=== PATIENT | male | born 1975 | race Two or more races ===

== ENCOUNTER 2024-06-04 14:37 | Inpatient (IN) | payer MEDICAID, SELFPAY ==
[2024-06-04] VITALS (14 sets, daily range): BP systolic 83–112; BP diastolic 53–75; PULSE 101–127; RESP 15–96; TEMP 36.4–37.3; O2SAT 87–99; BMI 25.1; BMI 24.7
--- NOTE | 2024-06-04 15:32 | XR_ITS ---
Examination: PA lateral chest 2 views Technique: Upright PA lateral chest 2 views Exam date and time: June 04, 2024 at 1606 hrs. Indications: Coughing one week. Findings: Normal heart size No lobar pneumonia No pulmonary edema. The osseous structures are intact Impression: No lobar pneumonia
--- NOTE | 2024-06-04 15:33 | PD.EDRME ---
Rapid Medical Screening Exam RME Arrival date/time: 06/04/24 14:37 This is a 49-year-old male that comes in with complaints of bodyaches, cough, back pain and abdominal pain that is been going on for almost a week. Patient reports a history of diabetes and states he does not take care of his diabetes. I have greeted and performed a focused initial assessment of this patient. Initial appropriate labs ordered at this time. A comprehensive ED assessment and evaluation of the patient and analysis of all test and completion of medical decision making process will be conducted by additional ED provider. Chief Complaint: Flu Like Symptoms Time Seen by Provider: 06/04/24 14:54 Vital signs: Vital Signs Temperature 97.6 F 06/04/24 14:48 Pulse Rate 127 H 06/04/24 14:48 Respiratory Rate 18 06/04/24 14:48 Blood Pressure 106/72 06/04/24 14:48 Pulse Oximetry (%) 97 06/04/24 14:48 Oxygen Delivery Method Room Air 06/04/24 14:48
[2024-06-04 15:57] LABS: Basophils # (Auto) 0.1 Thou/mm3 (0.0-0.2); Basophils % (Auto) 0 % (0-2.5); Eosinophils % (Auto) 0 % (0-10); Hematocrit 38.5 % (41.0-53.0); Hemoglobin 13.7 g/dL (13.5-16.0); Immature Granulocytes % (Auto) 9 % (0-0); Immature Granulocytes Auto 2.92 Thou/mm3 (0.00-0.00); Lymphocytes # (Auto) 0.7 Thou/mm3 (1.0-4.8); Lymphocytes % (Auto) 2 % (10-50); Mean Corpuscular HGB Conc 35.6 g/dl (31.0-37.0); Mean Corpuscular Hemoglobin 29.3 pg (25.0-35.0); Mean Corpuscular Volume 82 fL (80-100); Monocytes # (Auto) 1.2 Thou/mm3 (0.0-0.8); Monocytes % (Auto) 3 % (0-12); Neutrophils # (Auto) 29.4 Thou/mm3 (1.8-7.7); Neutrophils % (Auto) 86 % (37-80); Nucleated Red Blood Cell % 0 /100 WBC (0); Platelet Count 388 Thou/mm3 (140-440); Red Blood Count 4.67 Miln/mm3 (4.50-5.90); White Blood Count 34.3 Thou/mm3 (3.8-10.6)
[2024-06-04 16:14] LABS: Alanine Aminotransferase 86 U/L (10-49); Albumin, Serum 4.5 gm/dL (3.5-5.0); Albumin/Globulin Ratio 1.3 (1.2-2.2); Alkaline Phosphatase 421 U/L (46-116); Anion Gap 10 (7-16); Aspartate Amino Transferase 33 U/L (0-34); BUN/Creatinine Ratio 19 Ratio (12-20); Blood Urea Nitrogen 19 mg/dL (9-23); Calcium 9.5 mg/dL (8.3-10.6); Calcium (Corrected) 9.5 mg/dL (8.5-10.1); Carbon Dioxide 27.7 mMol/L (20.0-31.0); Chloride 88 mMol/L (98-107); Estimated Creatinine Clearance 89.4 mL/min (>60); Globulin 3.4 gm/dL (2.3-3.5); Glucose 274 mg/dL (74-106); Lipase 31 U/L (12-53); Osmolality,Calculated 265 (275-295); Potassium 4.5 mMol/L (3.4-5.1); Sodium 126 mMol/L (136-145); Total Protein 7.9 gm/dL (5.7-8.2); eGFR > 60 See Note
[2024-06-04 16:26] LABS: Collection Type, Urine Voided
--- NOTE | 2024-06-04 16:38 | EKG_ITS ---
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
--- NOTE | 2024-06-04 16:44 | PD.EDADULT ---
ED General RME/HPI General Chief complaint: Flu Like Symptoms Stated complaint: FLU SYMPTOMS x 7 DAYS Time Seen by Provider: 06/04/24 14:54 Arrival date/time: 06/04/24 14:37 CC: Body aches back pain , left abdominal pain with intermittent nausea no vomiting, denies any fever. Patient has a diabetes seen by the clinic at [place]. Patient states other family members are ill with similar symptoms. RME / HPI RME / HPI narrative: 06/04/24 14:37 This is a 49-year-old male that comes in with complaints of bodyaches, cough, back pain and abdominal pain that is been going on for almost a week. Patient reports a history of diabetes and states he does not take care of his diabetes. I have greeted and performed a focused initial assessment of this patient. Initial appropriate labs ordered at this time. A comprehensive ED assessment and evaluation of the patient and analysis of all test and completion of medical decision making process will be conducted by additional ED provider. Related Data Previous Rx's ?Medication ?Instructions ?Recorded metformin 500 mg tablet 500 mg PO BID #30 tabs 11/09/23 blood sugar diagnostic (Accu-Chek #100 ea 11/20/23 Guide test strips) blood-glucose meter (Accu-Chek #1 ea 11/20/23 Guide Glucose Meter) insulin degludec 100 unit/mL (3 15 unit (0.15 mL) subcut QPM #15 mL 11/20/23 mL) subcutaneous pen (Tresiba FlexTouch U-100 insulin) lancets 28 gauge #100 ea 11/20/23 Allergies Allergy/AdvReac Type Severity Reaction Status Date / Time No Known Allergies Allergy Unverified 06/04/24 14:42 Review of Systems Review of Systems Narrative Review of Systems: GEN: No fever, + chills, + weight loss EYES: No discharge, no visual changes, no pain HEENT: No ear pain, no congestion, no sore throat PULM: No shortness of breath, + cough, no congestion CV: No chest pain, no dyspnea on exertion, no palpitations GI: No nausea, no vomiting, no diarrhea, no pain, no constipation : No frequency, no urgency, no dysuria MUSC/SKEL: No joint pain, no back pain SKIN: No rash PSYCH: No hallucinations, no depression HEME/LYMPH: No easy bleeding or bruising tendencies NEURO: No weakness, no headache, + body aches ED Exam Narrative Physical exam: [General: Mild discomfort with acute distress Head normocephalic HEENT: Eyes pupils are PERRLA EOMs are intact all other subsystems of HEENT are within acceptable limits Neck is supple nontender Chest equal chest rise nontender to palpation Respiratory: Clear to auscultation no wheezes crackles or rubs CV: Rate rhythm is regular, tachycardic, no murmurs rubs or clicks Abdomen is soft nontender no masses positive bowel sounds all 4 quadrants Back: No CVA tenderness no spinous process tenderness from cervical spine thoracic and lumbar spine Skin: Intact no petechiae rash induration ulceration or crepitus Extremities: Moving all extremity against resistance cap refill less than 2 seconds neurosensory intact Neuro: Awake alert oriented x3 Glascow coma 15 no focal deficits] Course Quality Measures none Orders Category Date Time Status Bedside COVID-19 Antigen Test NOW Care 06/04/24 15:32 Completed Bedside Influenza A&B Antigen Test NOW Care 06/04/24 15:33 Completed Interactive Multimedia Designer STAT Care 06/04/24 16:38 Active Continuous Pulse Oximetry STAT Care 06/04/24 16:38 Completed EKG (ED ONLY) *Do not use* NOW Care 06/04/24 16:38 Completed Insert IV NOW Care 06/04/24 16:38 Active NPO STAT Care 06/04/24 16:38 Active Saline [Insert IV] NOW Care 06/04/24 16:43 Active Strict Intake and Output Routine Care 06/04/24 16:38 Ordered Consult to Infectious Diseases Routine Cons 06/04/24 19:[address] abdomen pelvis wo con Stat Exams 06/04/24 17:24 Completed EKG (ED Only) Stat Exams 06/04/24 16:38 Draft XR chest 2V Stat Exams 06/04/24 15:32 Completed B-Type Natriuretic Peptide Stat Lab 06/04/24 16:45 Completed Beta Hydroxybutyrate Stat Lab 06/04/24 16:45 Completed Blood Culture (Lab) Stat Lab 06/04/24 16:40 Received CBC Stat Lab 06/04/24 15:49 Completed Comprehensive Metabolic Panel Stat Lab 06/04/24 15:49 Completed Drug Screen,Urine Stat Lab 06/04/24 15:45 Completed LDH (Lactate Dehydrogenase) Stat Lab 06/04/24 16:45 Completed Lactate (Lactic Acid) Stat Lab 06/04/24 16:45 Completed Lipase Stat Lab 06/04/24 15:49 Completed Magnesium Stat Lab 06/04/24 16:45 Completed Partial Thromboplastin Time Stat Lab 06/04/24 16:45 Completed Phosphorous Stat Lab 06/04/24 16:45 Completed Procalcitonin Stat Lab 06/04/24 16:45 Completed Prothrombin Time with INR Stat Lab 06/04/24 16:45 Completed Quantiferon-TB* Stat Lab 06/04/24 19:40 Ordered Troponin I Stat Lab 06/04/24 16:45 Completed Urinalysis Stat Lab 06/04/24 17:54 Completed Urinalysis, C/S if Indicated Stat Lab 06/04/24 15:45 Completed Urine Culture Stat Lab 06/04/24 15:45 Received Urine Culture Stat Lab 06/04/24 16:38 Received Acetaminophen Tab [Tylenol ES Tab] Med 06/04/24 16:44 Discontinued 1,000 mg PO X1 ONE Piper/Tazo Inj [Zosyn Inj] 3.375 gm Med 06/04/24 19:12 Discontinued Sodium Chloride 0.9% (P) [Ns 0.9% (P)] 50 ml IV X1 Sodium Chloride 0.9% 1000 ml [Ns] 1,000 ml Med 06/04/24 16:43 Discontinued IV 999 mls/hr Sodium Chloride 0.9% 1000 ml [Ns] 1,000 ml Med 06/04/24 16:43 Discontinued IV 999 mls/hr Sodium Chloride 0.9% 500 ml [Ns] 500 ml Med 06/04/24 17:10 Discontinued IV 999 mls/hr cefTRIAXone/D5w 1gm IV premix [Rocephin/D5w 1gm IV Med 06/04/24 17:10 Discontinued premix] 50 ml IV X1 Oxygen Delivery NOW RT 06/04/24 16:38 Active Vital Signs Vital signs: Vital Signs Temperature 97.6 F 06/04/24 14:48 Pulse Rate 127 H 06/04/24 14:48 Respiratory Rate 18 06/04/24 14:48 Blood Pressure 106/72 06/04/24 14:48 Pulse Oximetry (%) 97 06/04/24 14:48 Oxygen Delivery Method Room Air 06/04/24 14:48 [facility] Patient data External records reviewed:: [facility] previous records Clinical information provided by:: patient Social determinants that could affect healthcare access:: none Patient has the following chronic illnesses:: Diabetes hypertension How is presenting disease/condition affected by chronic disease/condition?: uneffected by Evaluation data The following diagnostics were reviewed and interpreted by me:: lab results and radiology exam(s) Lab and/or radiology exams considered but not ordered:: CBC shows a leukocytosis of 35,000 with left shift no anemia thrombocytopenia Coags within acceptable limits CMP shows sodium 126 potassium of 4.5 chloride of 88 CO2 27.7 BUN of 19 creatinine 1.0 glucose of 274 Lactic of 3.3 Pro-Ranjit greater than 8 Troponin was negative, BNP was negative Beta hydroxy at 0.6 Urine is leukocyte Estrace positive, [address] abdomen pelvis with IV contrast as interpreted by me read by radiology shows a thickening of the bladder wall consistent with cystitis, patient also had enlarged left psoas muscle with air densities. Interpretation Summary: I am suspicious of both of urinary tract infection as well as psoas infection, patient had a mild positive psoas sign upon reexamination. Given the patient's leukocytosis which I do not feel would be commensurate with a UTI that is found but would be commensurate with psoas infection as well. Pro-Ranjit is elevated. Will admit the patient for UTI and psoas infection, Dr. Guzman attending is accept the patient for admission. Medications Medications considered but not ordered:: None Medication administrations:: Medication Administration History Acetaminophen (Acetaminophen 325 Mg Tablet) 650 mg PO Q6H PRN PRN Reason: Fever >101.5 Stop: 07/04/24 19:41 Hydrocodone Bitart/Acetaminophen (Hydrocodone/Apap 5/325 Tablet) 1 tab PO Q4HR PRN PRN Reason: PAIN SCALE 4-6 (Moderate Stop: 06/09/24 19:41 Dextrose (Dextrose 50%-Water Inj 50 Ml Syringe) 25 ml IV Q15MIN PRN PRN Reason: BG 50-70 responsive npo pt Stop: 07/04/24 19:48 Dextrose (Dextrose 50%-Water Inj 50 Ml Syringe) 50 ml IV Q15MIN PRN PRN Reason: BG <50 OR BG <70 & pt unresponsive Stop: 07/04/24 19:48 Enoxaparin Sodium (Enoxaparin Sod Inj 40 Mg/0.4 Ml Syringe) 40 mg SC QDAY [facility] Stop: 06/19/24 08:59 Glucagon (Glucagon Inj 1 Mg Vial) 1 mg IM Q15MIN PRN PRN Reason: BG <70, and no IV access Guaifenesin (Guaifenesin Syrup 200 Mg/10 Ml Udc) 200 mg PO QID PRN; Protocol PRN Reason: COUGH OR CONGESTION Stop: 07/04/24 20:52 Sodium Chloride (Ns) 1,000 mls @ 125 mls/hr IV .Q8H WARD Stop: 07/04/24 19:44 Last Admin: 06/04/24 19:54 Dose: 125 mls/hr Documented By: BRAULIO Piperacillin/Tazobactam/Dextrose (Zosyn) 3.375 gm in 50 mls @ 12.5 mls/hr IV Q8HR [facility] Stop: 06/12/24 05:59 Doxycycline Hyclate 100 mg/ (Sodium Chloride) 100 mls @ 100 mls/hr IV BID WARD Stop: 06/11/24 20:59 Last Admin: 06/04/24 20:56 Dose: 100 mls/hr Documented By: EE Insulin Glargine (Insulin Glargine (Lantus) 5 Unit/0.05 Ml (Per 5 Units)) 15 unit SC QDAY [facility] Stop: 07/05/24 08:59 Insulin Human Lispro (Insulin Lispro (Admelog) 1 Unit/0.01 Ml Unit) 0 unit SC AC [facility]; Protocol Stop: 07/05/24 07:29 Nicotine (Nicotine Patch 21 Mg/24 Hr Patch.Td24) 21 mg TOP QDAY [facility] Stop: 07/05/24 08:59 Oseltamivir Phosphate (Oseltamivir 75 Mg Capsule) 75 mg PO BID WARD Stop: 06/11/24 20:59 Last Admin: 06/04/24 21:00 Dose: 75 mg Documented By: EE Discontinued Medications Acetaminophen (Acetaminophen 500 Mg Tablet) 1,000 mg PO X1 ONE Stop: 06/04/24 16:45 Last Admin: 06/04/24 17:34 Dose: 1,000 mg Documented By: VIKY Sodium Chloride (Ns) 1,000 mls @ 999 mls/hr IV .Q1H1M ONE Stop: 06/04/24 17:43 Last Infusion: 06/04/24 18:23 Dose: Infused Documented By: SL Admin: 06/04/24 17:00 Dose: 999 mls/hr Documented By: VIKY Sodium Chloride (Ns) 1,000 mls @ 999 mls/hr IV .Q1H1M ONE Stop: 06/04/24 17:43 Last Infusion: 06/04/24 18:23 Dose: Infused Documented By: Admin: 06/04/24 17:00 Dose: 999 mls/hr Documented By: VIKY Sodium Chloride (Ns) 500 mls @ 999 mls/hr IV .Q31M ONE Stop: 06/04/24 17:40 Last Infusion: 06/04/24 18:23 Dose: Infused Documented By: Admin: 06/04/24 17:34 Dose: 999 mls/hr Documented By: VIKY Ceftriaxone Sodium/Dextrose (Rocephin/D5w 1gm Iv Premix) 50 mls @ 100 mls/hr IV X1 ONE Stop: 06/04/24 17:39 Last Infusion: 06/04/24 18:23 Dose: Infused Documented By: Admin: 06/04/24 17:35 Dose: 100 mls/hr Documented By: VIKY Piperacillin Sod/Tazobactam (Sod 3.375 gm/ Sodium Chloride) 50 mls @ 100 mls/hr IV X1 ONE Stop: 06/04/24 19:41 Last Infusion: 06/04/24 20:10 Dose: Infused Documented By: Admin: 06/04/24 19:31 Dose: 100 mls/hr Documented By: TRAVIS Insulin Glargine (Insulin Glargine (Lantus) 5 Unit/0.05 Ml (Per 5 Units)) 10 unit SC QDAY [facility] Stop: 07/05/24 08:59 None Consultations Consultation(s) initiated? (list below): No Diagnosis Differential Diagnosis ED Complaint MDM: UTI pyelonephritis sepsis influenza A Most likely diagnosis given after review of the tests above:: Influenza A UTI psoas infection Admission Indicated Admission indicated?: indicated Explain why admission is indicated or not indicated:: Further medical management Admission Request Was there a request for admission?: No Disposition Plan Disposition Plan: Admit Medical Decision Making Differential Diagnosis Differential Diagnosis: UTI pyelonephritis sepsis influenza A Lab Data 06/04/24 15:49 06/04/24 15:49 Labs: Lab Results 06/04/24 06/04/24 06/04/24 Range/Units 15:45 15:49 16:45 WBC 34.3 H (3.8-10.6) Thou/mm3 RBC 4.67 (4.50-5.90) Miln/mm3 Hgb 13.7 (13.5-16.0) g/dL Hct 38.5 L (41.0-53.0) % MCV 82 (80-100) fL MCH 29.3 (25.0-35.0) pg MCHC 35.6 (31.0-37.0) g/dl RDW Std Deviation 38.0 (35.1-43.9) fL Plt Count 388 (140-440) Thou/mm3 Neut % (Auto) 86 H (37-80) % Lymph % (Auto) 2 L (10-50) % [place] % (Auto) 3 (0-12) % Eos % (Auto) 0 (0-10) % Baso % (Auto) 0 (0-2.5) % Neut # (Auto) 29.4 H (1.8-7.7) Thou/mm3 Lymph # (Auto) 0.7 L (1.0-4.8) Thou/mm3 [place] # (Auto) 1.2 H (0.0-0.8) Thou/mm3 Eos # (Auto) 0.0 (0.0-0.5) Thou/mm3 Baso # (Auto) 0.1 (0.0-0.2) Thou/mm3 Immature Gran # (Auto) 2.92 H (0.00-0.00) Thou/mm3 Absolute Nucleated RBC 0.00 (0.00-0.00) Thou/mm3 Immature Gran % 9 H (0-0) % Neutrophils % (Manual) 62 (50-70) % Monocytes % (Manual) 4 (2-9) % Metamyelocytes % 3 H (0-0) % Myelocytes % 1 H (0-0) % Nucleated RBC % 0 (0) /100 WBC Band Neutrophils 29 H (0-6) % Lymphocytes (Manual) 1 L (20-44) % PT 12.7 H (9.0-12.2) Seconds INR 1.2 (0.9-1.3) APTT 29.1 (22.0-36.0) Seconds Sodium 126 L (136-145) mMol/L Potassium 4.5 (3.4-5.1) mMol/L Chloride 88 L (98-107) mMol/L Carbon Dioxide 27.7 (20.0-31.0) mMol/L Anion Gap 10 (7-16) BUN 19 (9-23) mg/dL Creatinine 1.0 (0.6-1.3) mg/dL Estim Creat Clear Calc 89.4 (>60) mL/min eGFR > 60 (60 - ) See Note BUN/Creatinine Ratio 19 (12-20) Ratio Glucose 274 H (74-106) mg/dL Calculated Osmolality 265 L (275-295) Lactic Acid 3.3 H (0.4-2.0) mMol/L Calcium 9.5 (8.3-10.6) mg/dL Corrected Calcium 9.5 (8.5-10.1) mg/dL Phosphorus 3.2 (2.4-5.1) mg/dL Magnesium 1.9 (1.6-2.6) mg/dL Total Bilirubin 1.0 (0.3-1.2) mg/dL AST 33 (0-34) U/L ALT 86 H (10-49) U/L Alkaline Phosphatase 421 H (46-116) U/L Lactate Dehydrogenase 367 H (120-246) U/L Troponin I < 0.020 (0.0-0.045) ng/mL B-Natriuretic Peptide 78 (0-100) pg/mL Total Protein 7.9 (5.7-8.2) gm/dL Albumin 4.5 (3.5-5.0) gm/dL Globulin 3.4 (2.3-3.5) gm/dL Albumin/Globulin Ratio 1.3 (1.2-2.2) Lipase 31 (12-53) U/L Beta-Hydroxybutyrate/Acetoacetate 0.6 H (<0.6) mmol/L Procalcitonin 8.32 H (0.0-0.49) ng/ml Ur Collection Type Voided Urine Color Yellow (Lt Yel-Yel) Urine Clarity Turbid A (Clear/Hazy) Urine pH 6.0 (5.0-7.0) Ur Specific [place] 1.030 (1.001-1.035) Urine Protein 2+ A (Neg - Trace) Urine Glucose (UA) 4+ A (Negative) Urine Ketones 2+ A (Negative) Urine Blood 1+ A (Negative) Urine Nitrite Negative (Negative) Urine Bilirubin Negative (Negative) Urine Urobilinogen (Auto) Negative (0.0-1.0) mg/dL Ur Leukocyte Esterase Positive (Negative) Urine RBC 10 H (0-3) /hpf Urine WBC 45 H (0-5) /hpf Ur Squamous Epith Cells 2 (0-5) /hpf Amorphous Crystals Present A (Absent) Urine Bacteria 1+ A (None) Hyaline Casts (0-1) /hpf Urine Yeast (Budding) Present A (None) Urine Sperm Present A (None) Ur Culture Indicated? Yes Urine Opiates Screen Negative (Negative) Urine Fentanyl Screen Negative (Negative) Ur Barbiturates Screen Negative (Negative) U Amphetamin/Meth Scrn Positive A (Negative) U Benzodiazepines Scrn Negative (Negative) U Cocaine Metab Screen Negative (Negative) U Marijuana (THC) Screen Negative (Negative) 06/04/24 Range/Units 17:54 WBC (3.8-10.6) Thou/mm3 RBC (4.50-5.90) Miln/mm3 Hgb (13.5-16.0) g/dL Hct (41.0-53.0) % MCV (80-100) fL MCH (25.0-35.0) pg MCHC (31.0-37.0) g/dl RDW Std Deviation (35.1-43.9) fL Plt Count (140-440) Thou/mm3 Neut % (Auto) (37-80) % Lymph % (Auto) (10-50) % [place] % (Auto) (0-12) % Eos % (Auto) (0-10) % Baso % (Auto) (0-2.5) % Neut # (Auto) (1.8-7.7) Thou/mm3 Lymph # (Auto) (1.0-4.8) Thou/mm3 [place] # (Auto) (0.0-0.8) Thou/mm3 Eos # (Auto) (0.0-0.5) Thou/mm3 Baso # (Auto) (0.0-0.2) Thou/mm3 Immature Gran # (Auto) (0.00-0.00) Thou/mm3 Absolute Nucleated RBC (0.00-0.00) Thou/mm3 Immature Gran % (0-0) % Neutrophils % (Manual) (50-70) % Monocytes % (Manual) (2-9) % Metamyelocytes % (0-0) % Myelocytes % (0-0) % Nucleated RBC % (0) /100 WBC Band Neutrophils (0-6) % Lymphocytes (Manual) (20-44) % PT (9.0-12.2) Seconds INR (0.9-1.3) APTT (22.0-36.0) Seconds Sodium (136-145) mMol/L Potassium (3.4-5.1) mMol/L Chloride (98-107) mMol/L Carbon Dioxide (20.0-31.0) mMol/L Anion Gap (7-16) BUN (9-23) mg/dL Creatinine (0.6-1.3) mg/dL Estim Creat Clear Calc (>60) mL/min eGFR (60 - ) See Note BUN/Creatinine Ratio (12-20) Ratio Glucose (74-106) mg/dL Calculated Osmolality (275-295) Lactic Acid (0.4-2.0) mMol/L Calcium (8.3-10.6) mg/dL Corrected Calcium (8.5-10.1) mg/dL Phosphorus (2.4-5.1) mg/dL Magnesium (1.6-2.6) mg/dL Total Bilirubin (0.3-1.2) mg/dL AST (0-34) U/L ALT (10-49) U/L Alkaline Phosphatase (46-116) U/L Lactate Dehydrogenase (120-246) U/L Troponin I (0.0-0.045) ng/mL B-Natriuretic Peptide (0-100) pg/mL Total Protein (5.7-8.2) gm/dL Albumin (3.5-5.0) gm/dL Globulin (2.3-3.5) gm/dL Albumin/Globulin Ratio (1.2-2.2) Lipase (12-53) U/L Beta-Hydroxybutyrate/Acetoacetate (<0.6) mmol/L Procalcitonin (0.0-0.49) ng/ml Ur Collection Type Clean Catch Urine Color Yellow (Lt Yel-Yel) Urine Clarity Turbid A (Clear/Hazy) Urine pH 6.0 (5.0-7.0) Ur Specific [place] 1.019 (1.001-1.035) Urine Protein 1+ A (Neg - Trace) Urine Glucose (UA) 4+ A (Negative) Urine Ketones 1+ A (Negative) Urine Blood Trace (Negative) Urine Nitrite Negative (Negative) Urine Bilirubin Negative (Negative) Urine Urobilinogen (Auto) 2.0 (0.0-1.0) mg/dL Ur Leukocyte Esterase Positive (Negative) Urine RBC 7 H (0-3) /hpf Urine WBC 43 H (0-5) /hpf Ur Squamous Epith Cells 2 (0-5) /hpf Amorphous Crystals (Absent) Urine Bacteria Rare (None) Hyaline Casts < 1 (0-1) /hpf Urine Yeast (Budding) (None) Urine Sperm (None) Ur Culture Indicated? Urine Opiates Screen (Negative) Urine Fentanyl Screen (Negative) Ur Barbiturates Screen (Negative) U Amphetamin/Meth Scrn (Negative) U Benzodiazepines Scrn (Negative) U Cocaine Metab Screen (Negative) U Marijuana (THC) Screen (Negative) Discharge Plan Plan Patient Disposition: Admit Acute Care w/in Hospital Patient condition on transfer: Stable Problem List Clinical Impression: Influenza A, UTI (urinary tract infection), uncomplicated, Psoas syndrome, Hyperglycemia PA/CHANGE MANAGEMENT DIRECTOR Supervising Physician PA/CHANGE MANAGEMENT DIRECTOR Supervising Physician: Vega Joseph ENP
[2024-06-04 16:47] LABS: Amorphous Crystals,Urine Present (Absent); Bacteria,Urine 1+; Bilirubin,Urine Negative (Negative); Blood,Urine 1+ (Negative); Budding Yeast,Urine Present; Clarity,Urine Turbid (Clear/Hazy); Color,Urine Yellow (Lt Yel-Yel); Glucose, Urine 4+ (Negative); Ketones,Urine 2+ (Negative); Leukocyte Esterase,Urine Positive (Negative); Nitrite,Urine Negative (Negative); Protein,Urine 2+ (Neg - Trace); RBC,Urine 10 /hpf (0-3); Squamous Epithelial Cell,Urine 2 /hpf (0-5); Urobilinogen,Urine Negative mg/dL (0.0-1.0); WBC,Urine 45 /hpf (0-5)
[2024-06-04 16:50] LABS: Culture Indicated,Urine Yes; Sperm,Urine Present
[2024-06-04 16:51] LABS: Lactate (Lactic Acid) 3.3 mMol/L (0.4-2.0)
[2024-06-04 16:55] LABS: Amphetamine/Methamp Scrn,U Positive (Negative); Barbiturate Screen,Urine Negative (Negative); Benzodiazepines Screen,Urine Negative (Negative); Benzoylecgonine Screen, Ur Negative (Negative); Fentanyl Screen,Urine Negative (Negative); Opiate Screen,Urine Negative (Negative); THC Screen,Urine Negative (Negative)
[2024-06-04] MEDS: SODIUM CHLORIDE 0.9% 1000 ML 1,000 ML 999 ML IV ×2 (17:00)
[2024-06-04 17:09] LABS: INR 1.2 (0.9-1.3); Partial Thromboplastin Time 29.1 Seconds (22.0-36.0); Prothrombin Time 12.7 Seconds (9.0-12.2)
[2024-06-04 17:10] LABS: B-Type Natriuretic Peptide 78 pg/mL (0-100)
[2024-06-04 17:17] LABS: Band Neutrophils (Manual) 29 % (0-6); Lymphocytes (Manual) 1 % (20-44); Metamyelocytes (Manual) 3 % (0-0); Monocytes (Manual) 4 % (2-9); Myelocytes (Manual) 1 % (0-0); Neutrophils (Manual) 62 % (50-70)
[2024-06-04 17:19] LABS: LDH (Lactate Dehydrogenase) 367 U/L (120-246); Magnesium 1.9 mg/dL (1.6-2.6); Phosphorous 3.2 mg/dL (2.4-5.1); Procalcitonin 8.32 ng/ml (0.0-0.49); Troponin I < 0.020 ng/mL (0.0-0.045)
[2024-06-04 17:21] LABS: Beta Hydroxybutyrate 0.6 mmol/L (<0.6)
--- NOTE | 2024-06-04 17:24 | XR_ITS ---
Examination: CT abdomen and pelvis without contrast. Coronal 3-D reconstructions. Sagittal 2-D reconstructions. Date and time of exam:June 04, 2024 1803 hrs. Indications: Sepsis unknown origin CTDI: vol (mGy): 8.36 DLP: (mGycm): 506 Technique: Axial images of the abdomen have been obtained, 3 mm slice thickness Intravenous contrast material has not been administered. Low dose protocols were performed. One or more of the following dose reduction techniques were used; automated exposure control, adjustment of the mA and/or KV according to patient size, use of iterative reconstruction technique. Findings: Mild opacity left base, axial image 29 Trace pericardial thickening No focal liver or splenic lesion No definite gallstones Normal pancreas normal adrenal glands Minimal bilateral perinephric stranding No renal or ureteral calculi, no hydronephrosis Normal appendix Enlarged left psoas muscle, axial image 145 with air densities with inflammatory change surrounding the psoas muscle extending into the pelvis Markedly abnormal thickening of the urinary bladder up to 10 mm No significant prostatomegaly Impression: Mild pneumonia left base Diffusely abnormal left psoas muscle, enlarged, with stranding and air densities within the psoas muscle most consistent with infectious process, tuberculosis would be included in the differential, recommend MRI pelvis follow-up pre and postcontrast Significant urinary bladder wall thickening, cystitis pattern
[2024-06-04] MEDS: ACETAMINOPHEN 500 MG TABLET 1000 MG PO (17:34)
[2024-06-04] MEDS: SODIUM CHLORIDE 0.9% 500 ML 500 ML 999 ML IV (17:34)
[2024-06-04] MEDS: cefTRIAXone/D5w 1gm IV premix 50 ML IV (17:35)
[2024-06-04 18:00] LABS: Collection Type, Urine Clean Catch
[2024-06-04 18:42] LABS: Bacteria,Urine Rare; Bilirubin,Urine Negative (Negative); Blood,Urine Trace (Negative); Clarity,Urine Turbid (Clear/Hazy); Color,Urine Yellow (Lt Yel-Yel); Glucose, Urine 4+ (Negative); Hyaline Casts,Urine < 1 /hpf (0-1); Ketones,Urine 1+ (Negative); Leukocyte Esterase,Urine Positive (Negative); Nitrite,Urine Negative (Negative); Protein,Urine 1+ (Neg - Trace); RBC,Urine 7 /hpf (0-3); Specific Gravity,Urine 1.019 (1.001-1.035); Squamous Epithelial Cell,Urine 2 /hpf (0-5); WBC,Urine 43 /hpf (0-5)
--- NOTE | 2024-06-04 19:13 | PC.NURSE ---
CALL JOHN CHAUDHARI FOR UPDATE
[2024-06-04] MEDS: PIPER/TAZO INJ 3.375 GM in SODIUM CHLORIDE 0.9% (P) 50 ML IV (19:31)
--- NOTE | 2024-06-04 19:44 | EVENTNT_ITS ---
Documentation for date of: 06/04/24 Event Note Event Note: A 49-year-old male presented to the ER with the chief complaint of body aches, back pain, and left abdominal pain. The patient reports body aches, back pain localized to the middle and upper back, and left-sided abdominal pain. Symptoms began approximately one week ago and are associated with intermittent nausea but no vomiting, diarrhea, or chills. He denies difficulty breathing but mentions mild chest pain and occasional phlegm. Additional symptoms include swollen and painful knees. The patient denies recent fever but was noted to be diaphoretic during evaluation. The patient has a history of diabetes managed with 15 units of insulin daily and arthritis. His surgical history includes elbow surgery for an infection last year, with an incision and drainage (I&D) procedure performed on November 19, 2023, for right elbow bursitis. Social history is significant for methamphetamine use, smoking one pack of cigarettes every 2?3 days, and no alcohol use. 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 No known drug allergies were reported. In the Emergency Department, vital signs included temperature 97.6?F, heart rate 122 bpm, respiratory rate 18 breaths per minute, and blood pressure 106/72 mmHg. EKG showed sinus tachycardia. Laboratory findings revealed leukocytosis (WBC 34.3), hyponatremia (sodium 126), hypochloremia (chloride 88), lactic acidosis (3.3), and elevated procalcitonin (8.32). Urinalysis showed turbid urine with WBC 43 but was nitrate-negative. Utox was positive for methamphetamine. Imaging findings included mild pneumonia in the left lung base and a diffusely abnormal left psoas muscle with stranding and air densities, consistent with an infectious process, with tuberculosis included in the differential. Additionally, there was significant urinary bladder wall thickening, consistent with cystitis. An MRI pelvis with contrast was recommended for further evaluation. A sepsis alert was initiated. The patient received an IV fluid bolus and was started on ceftriaxone and then zosyn. He was admitted for further treatment and management. Impression and Plan: #Sepsis secondary to suspected left psoas abscess, cystitis, and mild pneumonia - Elevated procalcitonin (8.32). - Continue IV fluids. - Initiate broad-spectrum antibiotics: Zosyn. - Obtain MRI pelvis with contrast to further evaluate left psoas muscle findings and rule out abscess or other infectious processes. - Monitor lactic acid levels and renal function daily for improvement. - ID consult. - QuantiFERON test. 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 #Diabetes mellitus - Continue current insulin regimen (15 units daily) with adjustments as needed based on blood glucose levels during hospitalization. - Check A1C. #Chronic joint pain with knee swelling - Symptomatic relief with acetaminophen or other non-opioid analgesics as needed.
[2024-06-04 19:49] LABS: Reflex Lactate? Y
[2024-06-04] MEDS: SODIUM CHLORIDE 0.9% 1000 ML 1,000 ML 125 ML IV (19:54)
[2024-06-04 20:08] LABS: Lactic Acid, 3 HR 1.7 mMol/L (0.4-2.0)
--- NOTE | 2024-06-04 20:21 | PD.RESHP ---
Documentation for date of: 06/04/24 HPI History of Present Illness Chief complaint: Generalized Pain and Fever History of present illness: HPI: Patient is a 49-year-old male with a past medical history significant for insulin-dependent diabetes mellitus type 2 presenting today with a chief complaint of generalized body pain and fever. With regards to his generalized body pain patient states it started approximately 1 week ago. It was also associated with some subjective fevers and decreased appetite, patient did not take any medication for this. Denies any SOB, cough, weakness, vomiting, diarrhea, chest pain/pressure, palpitations. Patient states that his niece was a sick contact but denied any recent travel. Upon review patient also endorsed a bitemporal headache and dizziness upon getting up quickly. He also endorsed dysuria for the past 3 weeks. Of note patient states that he is noncompliant with his insulin and last saw his PCP at [facility] approximately 6 months ago. ED course: BP 92/62, pulse 107, RR 25, temp 99.1 F, SpO2 96% on room air. Labs significant for WBC 34.3, NA 126, CL 88, lactic acid 3.3, ALT 86, ALP 421, LDH 367, Pro-Ranjit 8.32, influenza A positive. Urinalysis significant for 1+ protein, 4+ glucose, 1+ ketone and leukocyte esterase positive. U tox positive for meth. Abdomen/pelvis CT completed on 06/04/2024 findings include: Mild opacity left lung base, trace pericardial thickening, enlarged left psoas muscle with air densities and inflammatory changes surrounding extending into the pelvis. Markedly abnormal thickening of urinary bladder. Chest x-ray negative for any signs of consolidation, pulmonary edema or pleural effusion. EKG significant for sinus tachycardia, rate 118, no acute ST changes. Patient received 2.5 L normal saline IV fluid bolus, acetaminophen 1 g p.o. x 1, ceftriaxone 1 g IV x 1 and Zosyn 3.375 g IV x 1 in the ED. Patient will be admitted for workup and management of sepsis secondary to likely left psoas abscess/cystitis/left lung pneumonia. Infectious disease, Dr Medel consulted and is closely following the case. Appreciate recommendations. Review of Systems Review of Systems Narrative Review of Systems: GENERAL: Subjective fevers over past week HEENT: Endorses bitemporal headache for past day Neuro: Denies unusual weakness or difficulty speaking. CARDIO: Denies chest pain or palpitations. PULM: Denies SOB, couging or wheezing. GI: Denies abdominal pain, N/V/C/D. Reports having BMs. URO: Endorses dysuria for past 3 weeks MSK/EXT/SKIN: Endorses lower back pain for past week PSYCH: Cooperative, pleasant mood & affect. The rest of the review of systems is otherwise negative. 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 Education Level: Graduated high school Marital Status: Single, no kids Tobacco use: Approximately 30 pack year history. Smokes 1 pack a day ETHO use: Socially Illicit drug use: Daily meth use since 1996. Patient uses a glass pipe to smoke meth. Last use 2 days ago Social History Note: Lives with his mom dad and sisters. Exam Vital Signs Temp Pulse Resp BP Pulse Ox O2 Del Method 99.1 F 107 H 25 H 92/62 96 Room Air 06/04/24 19:33 06/04/24 19:33 06/04/24 19:33 06/04/24 19:33 06/04/24 19:33 06/04/24 19:33 Narrative Exam Constitutional Alert, oriented x 3 and comfortable. Young male. HEENT Vision grossly intact. Patent nares. Trachea midline. Respiratory Chest normal on inspection and clear auscultation bilaterally. Cardiovascular S1 and S2 audible, RRR. No murmurs carotid bruit. No gross JVD. Abdominal Soft and tender to palpation and left lower quadrant upon deep palpation, psoas sign positive on both left and right. Genitourinary No bladder tenderness, no flank pain. Normal to palpation. Musculoskeletal Extremities tone within normal limits. No LE edema. Neurological CN II - XII grossly intact. Extremity motor and sensation grossly intact. Skin Warm, dry and intact. Thick, creamy discharge on the foreskin of penis. Psychiatric Patient has good affect, is cooperative. Results: Labs 06/04/24 15:49 06/04/24 15:49 Labs: Short CBC 06/04/24 Range/Units 15:49 WBC 34.3 H (3.8-10.6) Thou/mm3 Hgb 13.7 (13.5-16.0) g/dL Hct 38.5 L (41.0-53.0) % Plt Count 388 (140-440) Thou/mm3 BMP 06/04/24 15:49 Sodium 126 L Potassium 4.5 Chloride 88 L Carbon Dioxide 27.7 BUN 19 Creatinine 1.0 Glucose 274 H Calcium 9.5 Cardiac Enzymes 06/04/24 Range/Units 16:45 Troponin I < 0.020 (0.0-0.045) ng/mL Liver Function 06/04/24 Range/Units 15:49 Total Bilirubin 1.0 (0.3-1.2) mg/dL AST 33 (0-34) U/L ALT 86 H (10-49) U/L Alkaline Phosphatase 421 H (46-116) U/L Albumin 4.5 (3.5-5.0) gm/dL Urine 06/04/24 06/04/24 Range/Units 15:45 17:54 Urine Color Yellow Yellow (Lt Yel-Yel) Urine Clarity Turbid A Turbid A (Clear/Hazy) Urine pH 6.0 6.0 (5.0-7.0) Ur Specific Brave 1.030 1.019 (1.001-1.035) Urine Protein 2+ A 1+ A (Neg - Trace) Urine Glucose (UA) 4+ A 4+ A (Negative) Quality Measures Quality Measures none Medications Home Medications and Allergies Allergies Allergy/AdvReac Type Severity Reaction Status Date / Time No Known Allergies Allergy Unverified 06/04/24 14:42 Visit Medications Acetaminophen (Acetaminophen 325 Mg Tablet) 650 mg PO Q6H PRN PRN Reason: Fever >101.5 Stop: 07/04/24 19:41 Hydrocodone Bitart/Acetaminophen (Hydrocodone/Apap 5/325 Tablet) 1 tab PO Q4HR PRN PRN Reason: PAIN SCALE 4-6 (Moderate Stop: 06/09/24 19:41 Dextrose (Dextrose 50%-Water Inj 50 Ml Syringe) 25 ml IV Q15MIN PRN PRN Reason: BG 50-70 responsive npo pt Stop: 07/04/24 19:48 Dextrose (Dextrose 50%-Water Inj 50 Ml Syringe) 50 ml IV Q15MIN PRN PRN Reason: BG <50 OR BG <70 & pt unresponsive Stop: 07/04/24 19:48 Enoxaparin Sodium (Enoxaparin Sod Inj 40 Mg/0.4 Ml Syringe) 40 mg SC QDAY [facility] Stop: 06/19/24 08:59 Glucagon (Glucagon Inj 1 Mg Vial) 1 mg IM Q15MIN PRN PRN Reason: BG <70, and no IV access Sodium Chloride (Ns) 1,000 mls @ 125 mls/hr IV .Q8H [facility] Stop: 07/04/24 19:44 Last Admin: 06/04/24 19:54 Dose: 125 mls/hr Piperacillin/Tazobactam/Dextrose (Zosyn) 3.375 gm in 50 mls @ 100 mls/hr IV Q6HR [facility] Stop: 06/11/24 19:48 Piperacillin/Tazobactam/Dextrose (Zosyn) 50 mls @ 100 mls/hr IV X1 [facility] Stop: 06/05/24 14:00 Insulin Glargine (Insulin Glargine (Lantus) 5 Unit/0.05 Ml (Per 5 Units)) 15 unit SC QDAY [facility] Stop: 07/05/24 08:59 Insulin Human Lispro (Insulin Lispro (Admelog) 1 Unit/0.01 Ml Unit) 0 unit SC AC [facility]; Protocol Stop: 07/05/24 07:29 Discontinued Medications Acetaminophen (Acetaminophen 500 Mg Tablet) 1,000 mg PO X1 ONE Stop: 06/04/24 16:45 Last Admin: 06/04/24 17:34 Dose: 1,000 mg Sodium Chloride (Ns) 1,000 mls @ 999 mls/hr IV .Q1H1M ONE Stop: 06/04/24 17:43 Last Infusion: 06/04/24 18:23 Dose: Infused Sodium Chloride (Ns) 1,000 mls @ 999 mls/hr IV .Q1H1M ONE Stop: 06/04/24 17:43 Last Infusion: 06/04/24 18:23 Dose: Infused Sodium Chloride (Ns) 500 mls @ 999 mls/hr IV .Q31M ONE Stop: 06/04/24 17:40 Last Infusion: 06/04/24 18:23 Dose: Infused Ceftriaxone Sodium/Dextrose (Rocephin/D5w 1gm Iv Premix) 50 mls @ 100 mls/hr IV X1 ONE Stop: 06/04/24 17:39 Last Infusion: 06/04/24 18:23 Dose: Infused Piperacillin Sod/Tazobactam (Sod 3.375 gm/ Sodium Chloride) 50 mls @ 100 mls/hr IV X1 ONE Stop: 06/04/24 19:41 Last Admin: 06/04/24 19:31 Dose: 100 mls/hr Insulin Glargine (Insulin Glargine (Lantus) 5 Unit/0.05 Ml (Per 5 Units)) 10 unit SC QDAY [facility] Stop: 07/05/24 08:59 Assessment & Plan Plan Patient is a 49-year-old male with a past medical history significant for insulin-dependent diabetes mellitus type 2 presenting today with a chief complaint of generalized body pain and fever. Patient will be admitted for workup and management of sepsis secondary to likely left psoas abscess/cystitis/left lung pneumonia. 1. Sepsis secondary to likely left psoas abscess 2. Influenza A upper respiratory infection 3. Leukocytosis Patient presented with a 1 week history of generalized body pain and subjective fever. On exam patient has bilateral psoas sign positive and tender to palpation in the left lower quadrant. Abdomen/pelvis CT completed on 06/04/2024 findings include: Mild opacity left lung base, trace pericardial thickening, enlarged left psoas muscle with air densities and inflammatory changes surrounding extending into the pelvis. Markedly abnormal thickening of urinary bladder. Chest x-ray negative for any signs of consolidation, pulmonary edema or pleural effusion. SIRS 3/4. Heart rate 107, respiration 25, WBC 34.3, Pro-Ranjit 8.32, LA 3.3. Source of infection likely left psoas abscess, cystitis, influenza A upper respiratory infection, UTI. Patient received ceftriaxone 1 g IV x 1, Zosyn 3.375 g IV x 1 and 2.5 L normal saline IV fluid bolus in the ED. Plan: ? Low consistent carb diet ? MR pelvis without/with contrast ordered to rule out psoas abscess ? ESR, CRP ordered ? QuantiFERON TB ordered ? MRSA nasal screen ? Pending blood and urine cultures ? Started on Tamiflu 75 Mg p.o. twice daily on [06/04? ? Started on Zosyn 3.375 g IV every 6 hourly for Pseudomonas coverage on [06/04? ? Started on doxycycline 100 mg IV twice daily for MRSA coverage on [06/04? ? Possible general surgery consult pending MRI. ? Infectious disease, Dr Medel consulted and is closely following the case. Appreciate recommendations. 4. Cystitis 5. UTI Patient endorsed dysuria for the past 3 weeks. Urinalysis significant for 1+ protein, 4+ glucose, 1+ ketone and leukocyte esterase positive. Plan: ? Patient currently on Zosyn and doxycycline for sepsis secondary to likely psoas abscess. Will tailor antibiotics if necessary depending on urine and blood cultures. 6. Hyponatremia 7. Hypochloremia Most likely secondary to decreased appetite and poor fluid intake. Plan: ? Normal saline maintenance fluids at 125 cc/hour 8. Methamphetamine use 9. Tobacco dependence Patient reported daily meth use since 1996, last used 2 days ago. Patient has approximately [id number] smoking history. Currently smokes 1 pack a day. U tox positive for methamphetamine. Plan: ? Patient extensively counseled and advised to quit tobacco and methamphetamine use. Patient agrees. ? Nicotine patch 21 mg topical daily 10. Insulin dependent Diabetes mellitus type 2 No recent HbA1c on file Home medication Insulin glargine 15U SC daily Patient non compliant with insulin and has not seen his PCP in over 6 months. Plan: - HbA1c - Insulin glargine 15 U sc HS - SSI to cover for any blood glucose spikes Health maintenance: Disposition: IVF and IV antibiotics. MRI pelvis. ID consult, possible general surgery consult Diet: Low consistent carb Lines: pIVs GI Prophylaxis: None Thrombo Prophylaxis: Enoxaprin 40 mg sc daily Code status: FULL CODE Plan of care discussed with Attending Dr. Thomas Peguero MD PGY 1 Attending Provider Attestation/Addendum Pt was evaluated and plan formulated together with the housestaff team. I have reviewed the residents note above and agree with most of its content. Please refer to the residents note for additional details.
[2024-06-04] MEDS: DOXYCYCLINE INJ 100 MG in SODIUM CHLORIDE 0.9% (P) 100 ML IV (20:56)
[2024-06-04] MEDS: OSELTAMIVIR 75 MG CAPSULE PO (21:00)
[2024-06-04] MEDS: INSULIN LISPRO (AdmeLOG) 1 UNIT/0.01 ML UNIT 5 UNIT SC (23:07)
[2024-06-04] MEDS: HYDROcodone/APAP 5/325 TABLET 1 TAB PO (23:14)
[2024-06-05] VITALS (8 sets, daily range): BP systolic 93–109; BP diastolic 68–74; PULSE 82–117; RESP 15–84; TEMP 36.1–37.7; O2SAT 92–98; BMI 24.7
--- NOTE | 2024-06-05 | XR_ITS ---
Examination: MRI pelvis with intravenous contrast. MRI pelvis without intravenous contrast. Date and time of exam: June 05, 2024 1135 hours INDICATIONS: Bodyaches abdominal pain pelvic pain intermittent nausea 7 days, sepsis, CT abdomen pelvis June 04, 2024 infectious process in the left psoas muscle Technique: Multiple axial, sagittal and coronal sections of the pelvis obtained. Transverse images, TR 6020, TE 107. T1 weighted transverse images, TR 582, TE 9.5. T2-weighted sagittal images, TR 4000, TE 105. T2-weighted sagittal images, TR 4000, TE 5. Coronal images, TR 4210, TE 107. Axial and coronal images are obtained post 15 cc intravenous injection, gadolinium. Findings: Marked enlargement and diffuse increased signal in the left psoas muscle extending into the pelvis Pelvis contrast images demonstrate diffuse enhancement of the left psoas muscle Fluid-filled drainable abscess is not depicted Mild free fluid in the pelvis Mild free fluid presacral Urinary bladder intact IMPRESSION: Prominent infectious process involving the psoas muscle on the left including in the pelvis Highest on the differential list is infectious processes including tuberculosis
[2024-06-05] MEDS: SODIUM CHLORIDE 0.9% 1000 ML 1,000 ML 125 ML IV (04:39)
[2024-06-05] MEDS: PIPER/TAZO 3.375 GM 3.375 GM/50 ML BAG IV (05:41)
[2024-06-05 06:03] LABS: Quantiferon-TB* See Sep Rpt
[2024-06-05 06:09] LABS: Basophils % (Auto) 0 % (0-2.5); Eosinophils % (Auto) 0 % (0-10); Hematocrit 30.5 % (41.0-53.0); Hemoglobin 10.5 g/dL (13.5-16.0); Immature Granulocytes % (Auto) 10 % (0-0); Immature Granulocytes Auto 2.59 Thou/mm3 (0.00-0.00); Lymphocytes # (Auto) 0.9 Thou/mm3 (1.0-4.8); Lymphocytes % (Auto) 3 % (10-50); Mean Corpuscular HGB Conc 34.4 g/dl (31.0-37.0); Mean Corpuscular Hemoglobin 29.2 pg (25.0-35.0); Mean Corpuscular Volume 85 fL (80-100); Monocytes # (Auto) 1.1 Thou/mm3 (0.0-0.8); Monocytes % (Auto) 4 % (0-12); Neutrophils # (Auto) 22.5 Thou/mm3 (1.8-7.7); Neutrophils % (Auto) 83 % (37-80); Nucleated Red Blood Cell % 0 /100 WBC (0); Platelet Count 353 Thou/mm3 (140-440); RDW Standard Deviation 39.4 fL (35.1-43.9); Red Blood Count 3.59 Miln/mm3 (4.50-5.90); White Blood Count 27.3 Thou/mm3 (3.8-10.6)
[2024-06-05 06:21] LABS: Sed Rate (ESR) 79 mm/hr (0-15)
[2024-06-05] MEDS: HYDROcodone/APAP 5/325 TABLET 1 TAB PO ×3 (06:23→19:53)
[2024-06-05 06:31] LABS: Anion Gap 9 (7-16); BUN/Creatinine Ratio 18 Ratio (12-20); Blood Urea Nitrogen 14 mg/dL (9-23); C-Reactive Protein > 30.4 mg/dL (0.0-0.9); Calcium 8.4 mg/dL (8.3-10.6); Carbon Dioxide 25.9 mMol/L (20.0-31.0); Chloride 98 mMol/L (98-107); Creatinine (Component) 0.8 mg/dL (0.6-1.3); Estimated Creatinine Clearance 111.7 mL/min (>60); Glucose 241 mg/dL (74-106); Osmolality,Calculated 274 (275-295); Potassium 3.8 mMol/L (3.4-5.1); Sodium 133 mMol/L (136-145); eGFR > 60 See Note
--- NOTE | 2024-06-05 07:37 | PD.RESPRO ---
Documentation for date of: 06/05/24 Subjective Subjective Interval history: No overnight events. Complaining of mild left abdominal pain, improved since yesterday. Isolation for possible tuberculosis. Tolerating oral intake without nausea or vomiting. Denies fever, chills, headaches, chest pain, sob, cough, GI or urinary symptoms. Exam Vital Signs Temp Pulse Resp BP Pulse Ox O2 Del Method O2 Flow Rate 98.1 F 109 H 18 109/68 98 Nasal Cannula 2 06/05/24 04:00 06/05/24 04:00 06/05/24 04:00 06/05/24 04:00 06/05/24 04:00 06/05/24 04:00 06/05/24 04:00 Narrative Exam GENERAL Normal-appearing adult male, in mild distress due to pain HEENT NCAT.?TETO. Oral mucosa is moist. Patent Nares NECK Supple, nontender, no thyromegaly, no meningismus, no JVD, no step offs CHEST RRR, no m/g/r CTAB, no w/r/r. Symmetrical chest rise. No intercostal subcostal retraction Atraumatic, nontender, no crepitus, symmetrical expansion. ABDOMEN Soft, flat, nontender. No guarding/rebound tenderness/masses. Bowel sounds presents EXTREMITIES Nontender, no cyanosis, no edema No edema/cyanosis.? Positive left psoas sign. No overlying skin changes. SKIN Warm and dry, no jaundice/rashes. NEUROMUSCULAR No lumbar or midline, no CVA, no paraspinal muscle spasm or tenderness. Moves all 4 extremities well, with full ROM and good CSM. HEATH x4, CN II-XII grossly intact. No focal neurologic deficits. PSYCHIATRY Normal mood and affect, cooperative, no SI or HI or hallucinations. Objective Labs 06/06/24 04:30 06/06/24 04:30 Labs: Laboratory Results - last 24 hr 06/04/24 06/04/24 06/04/24 15:45 15:49 16:45 WBC 34.3 H RBC 4.67 Hgb 13.7 Hct 38.5 L MCV 82 MCH 29.3 MCHC 35.6 RDW Std Deviation 38.0 Plt Count 388 Neut % (Auto) 86 H Lymph % (Auto) 2 L [place] % (Auto) 3 Eos % (Auto) 0 Baso % (Auto) 0 Neut # (Auto) 29.4 H Lymph # (Auto) 0.7 L [place] # (Auto) 1.2 H Eos # (Auto) 0.0 Baso # (Auto) 0.1 Immature Gran # (Auto) 2.92 H Absolute Nucleated RBC 0.00 Immature Gran % 9 H Neutrophils % (Manual) 62 Monocytes % (Manual) 4 Metamyelocytes % 3 H Myelocytes % 1 H Nucleated RBC % 0 Band Neutrophils 29 H Lymphocytes (Manual) 1 L ESR PT 12.7 H INR 1.2 APTT 29.1 Sodium 126 L Potassium 4.5 Chloride 88 L Carbon Dioxide 27.7 Anion Gap 10 BUN 19 Creatinine 1.0 Estim Creat Clear Calc 89.4 eGFR > 60 BUN/Creatinine Ratio 19 [address]ucose [address] Glu mg/dL Hemoglobin A1c Calculated Osmolality 265 L Lactic Acid 3.3 H Calcium 9.5 Corrected Calcium 9.5 Phosphorus 3.2 Magnesium 1.9 Total Bilirubin 1.0 AST 33 ALT 86 H Alkaline Phosphatase 421 H Lactate Dehydrogenase 367 H Troponin I < 0.020 C-Reactive Prot, Quant B-Natriuretic Peptide 78 Total Protein 7.9 Albumin 4.5 Globulin 3.4 Albumin/Globulin Ratio 1.3 Lipase 31 Beta-Hydroxybutyrate/Acetoacetate 0.6 H Procalcitonin 8.32 H Ur Collection Type Voided Urine Color Yellow Urine Clarity Turbid A Urine pH 6.0 Ur Specific [place] 1.030 Urine Protein 2+ A Urine Glucose (UA) 4+ A Urine Ketones 2+ A Urine Blood 1+ A Urine Nitrite Negative Urine Bilirubin Negative Urine Urobilinogen (Auto) Negative Ur Leukocyte Esterase Positive Urine RBC 10 H Urine WBC 45 H Ur Squamous Epith Cells 2 Amorphous Crystals Present A Urine Bacteria 1+ A Hyaline Casts Urine Yeast (Budding) Present A Urine Sperm Present A Ur Culture Indicated? Yes Urine Opiates Screen Negative Urine Fentanyl Screen Negative Ur Barbiturates Screen Negative U Amphetamin/Meth Scrn Positive A U Benzodiazepines Scrn Negative U Cocaine Metab Screen Negative U Marijuana (THC) Screen Negative 06/04/24 06/04/24 06/05/24 17:54 20:00 05:08 WBC 27.3 H D RBC 3.59 L Hgb 10.5 L D Hct 30.5 L MCV 85 MCH 29.2 MCHC 34.4 RDW Std Deviation 39.4 Plt Count 353 D Neut % (Auto) 83 H Lymph % (Auto) 3 L [place] % (Auto) 4 Eos % (Auto) 0 Baso % (Auto) 0 Neut # (Auto) 22.5 H Lymph # (Auto) 0.9 L [place] # (Auto) 1.1 H Eos # (Auto) 0.0 Baso # (Auto) 0.0 Immature Gran # (Auto) 2.59 H Absolute Nucleated RBC 0.00 Immature Gran % 10 H Neutrophils % (Manual) Monocytes % (Manual) Metamyelocytes % Myelocytes % Nucleated RBC % 0 Band Neutrophils Lymphocytes (Manual) ESR 79 H PT INR APTT Sodium 133 L Potassium 3.8 D Chloride 98 Carbon Dioxide 25.9 Anion Gap 9 BUN 14 Creatinine 0.8 Estim Creat Clear Calc 111.7 eGFR > 60 BUN/Creatinine Ratio 18 [address]ucose [address] Glu mg/dL Cancelled Hemoglobin A1c Cancelled Calculated Osmolality 274 L Lactic Acid 1.7 Calcium 8.4 Corrected Calcium Phosphorus Magnesium Total Bilirubin AST ALT Alkaline Phosphatase Lactate Dehydrogenase Troponin I C-Reactive Prot, Quant > 30.4 H B-Natriuretic Peptide Total Protein Albumin Globulin Albumin/Globulin Ratio Lipase Beta-Hydroxybutyrate/Acetoacetate Procalcitonin Ur Collection Type Clean Catch Urine Color Yellow Urine Clarity Turbid A Urine pH 6.0 Ur Specific [place] 1.019 Urine Protein 1+ A Urine Glucose (UA) 4+ A Urine Ketones 1+ A Urine Blood Trace Urine Nitrite Negative Urine Bilirubin Negative Urine Urobilinogen (Auto) 2.0 Ur Leukocyte Esterase Positive Urine RBC 7 H Urine WBC 43 H Ur Squamous Epith Cells 2 Amorphous Crystals Urine Bacteria Rare Hyaline Casts < 1 Urine Yeast (Budding) Urine Sperm Ur Culture Indicated? Urine Opiates Screen Urine Fentanyl Screen Ur Barbiturates Screen U Amphetamin/Meth Scrn U Benzodiazepines Scrn U Cocaine Metab Screen U Marijuana (THC) Screen Quality Measures Quality Measures none Assessment & Plan Assessment Current Active Medications: Generic Name Dose Route Start Last Admin Trade Name Freq PRN Reason Stop Dose Admin Acetaminophen 650 mg 06/04/24 19:42 Acetaminophen 325 Mg Tablet PO 07/04/24 19:41 Q6H PRN Fever >101.5 Hydrocodone Bitart/Acetaminophen 1 tab 06/04/24 19:42 06/05/24 06:23 Hydrocodone/Apap 5/325 Tablet PO 06/09/24 19:41 1 tab Q4HR PRN Administration PAIN SCALE 4-6 (Moderate Dextrose 25 ml 01/12/25 19:49 Dextrose 50%-Water Inj 50 Ml Syringe IV 07/04/24 19:48 Q15MIN PRN BG 50-70 responsive npo pt Dextrose 50 ml 06/04/24 19:49 Dextrose 50%-Water Inj 50 Ml Syringe IV 07/04/24 19:48 Q15MIN PRN BG <50 OR BG <70 & pt unresponsive Enoxaparin Sodium 40 mg 06/05/24 09:00 Enoxaparin Sod Inj 40 Mg/0.4 Ml Syringe SC 06/19/24 08:59 QDAY [facility] Glucagon 1 mg 06/04/24 19:49 Glucagon Inj 1 Mg Vial IM Q15MIN PRN BG <70, and no IV access Guaifenesin 200 mg 06/04/24 20:53 Guaifenesin Syrup 200 Mg/10 Ml Udc PO 07/04/24 20:52 QID PRN COUGH OR CONGESTION Protocol Sodium Chloride 1,000 mls @ 125 mls/hr 06/04/24 19:45 06/05/24 04:39 Ns IV 07/04/24 19:44 125 mls/hr .Q8H [facility] Administration Cefepime HCl 2 gm/ Sodium 50 mls @ 100 mls/hr 06/05/24 14:00 Chloride IV 06/12/24 13:59 TID [facility] Metronidazole 500 mg in 100 mls @ 200 mls/hr 06/05/24 07:28 Flagyl 500 Mg Iv IV 06/12/24 07:27 Q8HR [facility] Vancomycin/Sodium Chloride 200 mls @ 120 mls/hr 06/05/24 07:45 Vancomycin/Ns 1 Gm Ivpb IV 06/12/24 07:44 Q8HR [facility] Protocol Insulin Glargine 15 unit 06/05/24 09:00 Insulin Glargine (Lantus) 5 Unit/0.05 Ml (Per 5 Units) SC 07/05/24 08:59 QDAY [facility] Insulin Human Lispro 0 unit 06/05/24 07:30 Insulin Lispro (Admelog) 1 Unit/0.01 Ml Unit SC 07/05/24 07:29 AC [facility] Protocol Nicotine 21 mg 06/05/24 09:00 Nicotine Patch 21 Mg/24 Hr Patch.Td24 TOP 07/05/24 08:59 QDAY [facility] Oseltamivir Phosphate 75 mg 06/04/24 21:00 06/04/24 21:00 Oseltamivir 75 Mg Capsule PO 06/11/24 20:59 75 mg BID WARD Administration Pharmacy Consult 1 each 06/05/24 08:00 Vancomycin Pharmacy To Dose 1 Each Each IV 07/05/24 07:59 QDAY@0800 PRN CONSULT Plan In summary: 49-year-old male IDDM, presents with generalized body pain and fever x 1 week Also endorsing bitemporal headache and dizziness upon standing, dysuria x 3 weeks. He was admitted for sepsis in settings of influenza A and GPC bacteremia. ID is following. Continued on VANCOMYCIN for GPC, TAMIFLU for influenza. Pending TB workup as patient had inflamed left psoas, suggestive of TB origin. Pending cultures, MRSA, QuantiFERON. Pending echocardiogram rule out vegetations Pending MRI left psoas. Appreciate recommendations from ID, general surgery. Sepsis settings of: Left Psoas tendonitis Influenza A GPC bacteremia 3/4 SIRS tachycardia, tachypnea and leukocytosis, with source of infection GPC bacteremia, influenza A, less likely left psoas abscess. No surgical intervention from general surgery perspective. Discussed with radiology, did not indicate presence of drainable abscess, relieved inflamed psoas muscle characteristic of tuberculosis infection. ID following, recommending VANCOMYCIN only for GPC, continue TAMIFLU. Pending QuantiFERON to rule out latent TB, possibly the cause of left psoas tendinitis. Adequately fluid resuscitated. For abscess: CEFEPIME 2 mg TID + METRONIDAZOLE 500 mg q.8h. For GPC bactermia: VANCOMYCIN For Influenza: TAMIFLU 75 mg BID + GUAIFENESIN 200 mg QID ? Continue TAMIFLU 75 mg BID (06/22 to [present]) ? Continue VANCOMYCIN pharmacy dosed (06/22 to [present]) ? Continue GUAIFENESIN 200 mg QID ? Pending MRSA, blood culture, urine culture, QuantiFERON ? Pending MRI pelvis rule out abscess ? Pending ECHO r/o vegetation Cystitis UTI Patient endorsed dysuria for the past 3 weeks. We previously started CEFEPIME, METRONIDAZOLE for suspected psoas abscess which would also cover UTI. Currently on VANCOMYCIN only. Infectious disease following. Pending urine culture. Currently asymptomatic. Will restart ANTIBIOTICS as needed. ? Pending urine culture Hyponatremia (improving) Hypochloremia Likely dehydrational. Admission sodium 129, currently 133 ? Normal saline maintenance fluids at 125 cc/hour ? Daily CMP Insulin dependent Diabetes mellitus type 2 On INSULIN GLARGINE 15 units. A1C >14 this visit. GLUCOSE is 246 Home medication Insulin glargine 15U SC daily ? Continue glargine 15 units SH ? Continue LISPRO 7 units TID ? INSULIN sliding scale ? Accu-Cheks ? Diabetic education Mild transaminitis In settings of sepsis. Improving. ? Daily CMP Methamphetamine use Tobacco dependence Patient reported daily meth use since 1996, last used 2 days ago. Patient has approximately [id number] smoking history. Currently smokes 1 pack a day. U-Tox positive for METHAMPHETAMINE ? Consulted on tobacco and METH cessation ? NICOTINE patch 21 mg daily Health maintenance Diet: CHO consistent GI prophylaxis: PROTONIX DVT prophylaxis: LOVENOX Antibiotics: VANCOMYCIN, TAMIFLU CODE STATUS: Full code Disposition: Pending troponin, improvement in symptoms Patient case was discussed with attending, José Newman MD and senior residents Dr. Bauer and Dr. Howell. Linnea Swann, DO PGYI Senior Resident Attestation: The patient was interviewed and examined at the isolation units this morning. He reported mild left lower abdominal pain, that has been improving since yesterday. He denied any headache, lightheadedness, chest pain, SOB, any urinary symptoms, nausea or vomiting, fevers or chills. Physical examination was significant for positive left psoas sign. The patient was found to be having GPC bacteremia, was started on IV vancomycin, switched Zosyn to cefepime and metronidazole. Will continue with Tamiflu for influenza pneumonia. The patient was started on insulin glargine 15 units daily, and insulin lispro 7 units 3 times daily with sliding scale insulin. However, ID Dr Medel narrowed all antibiotics to IV vancomycin only. He was counseled regarding stopping the use of nonprescribed drugs. I discussed with and supervised the internal medicine physician physician involved in the care of this patient. I personally saw and examined the patient and discussed the assessment and plan with the entire medicine team, including my attending. I agree with the assessment and plan as documented above. Piotr Howell MD PGY2 Internal Medicine Attending Provider Attestation/Addendum I have examined the patient, reviewed labs and imaging findings, discussed the case with the resident(s), and reviewed entered orders. I agree with the plan of care as outlined in this note, with these additional summaries/recommendations: Patient seen at bedside. Patient admitted for SIRS criteria which is multifactorial secondary to influenza A & GPC bacteremia. Urinalysis suggestive of UTI although no urinary symptoms at this time. Blood cultures currently growing GPC and urine culture plus MRSA screen pending. Infectious disease consulted and will continue IV vancomycin plus tamiflu. Echocardiogram pending. Significant leukocytosis on admission of 34.3 improved to 27.3. Patient was found to have diffusely abnormal left psoas muscle was stranding and air densities indicative of infectious process. MRI pelvis was obtained which showed prominent infectious process again involving the left psoas muscle. Medical team spoke with radiology and no drainable fluid collection at this time. Possibly represents an infectious process including tuberculosis. No evidence of pots disease at this time. Quantiferon Gold ordered and pending results. Patient has uncontrolled diabetes mellitus type 2 and currently receiving basal bolus insulin. A1c send out and likely greater than 14% based on previous readings. Patient was counseled extensively on the importance of blood sugar management and substance abuse cessation and in agreement. Repeat hematology and chemistry panel in AM. Dr. Newman
[2024-06-05] MEDS: INSULIN LISPRO (AdmeLOG) 1 UNIT/0.01 ML UNIT SC ×2 (07:39→13:01)
[2024-06-05] MEDS: metroNIDAZOLE/NS 500 MG IVPB 500 MG/100 ML BAG 200 MG IV (07:53)
--- NOTE | 2024-06-05 09:29 | PD.IDPROG ---
Subjective Subjective Interval history: on cefepime/flagyl/vanco. bc with gpc prelim. id may take another 24h. vanco ok for all gpc. He states he is here for an unspecified gi infection with no surgery planned. Exam Vital Signs Temp Pulse Resp BP Pulse Ox O2 Del Method O2 Flow Rate 97.3 F 82 16 97/68 93 L Nasal Cannula 2 06/05/24 08:00 06/05/24 08:00 06/05/24 08:00 06/05/24 08:00 06/05/24 08:00 06/05/24 08:00 06/05/24 08:00 Narrative Exam on O2. able to offer hx. Objective - Internal Medicine Labs 06/05/24 05:08 06/05/24 05:08 Labs: Laboratory Results - last 24 hr 06/04/24 06/04/24 06/04/24 15:45 15:49 16:45 WBC 34.3 H RBC 4.67 Hgb 13.7 Hct 38.5 L MCV 82 MCH 29.3 MCHC 35.6 RDW Std Deviation 38.0 Plt Count 388 Neut % (Auto) 86 H Lymph % (Auto) 2 L [place] % (Auto) 3 Eos % (Auto) 0 Baso % (Auto) 0 Neut # (Auto) 29.4 H Lymph # (Auto) 0.7 L [place] # (Auto) 1.2 H Eos # (Auto) 0.0 Baso # (Auto) 0.1 Immature Gran # (Auto) 2.92 H Absolute Nucleated RBC 0.00 Immature Gran % 9 H Neutrophils % (Manual) 62 Monocytes % (Manual) 4 Metamyelocytes % 3 H Myelocytes % 1 H Nucleated RBC % 0 Band Neutrophils 29 H Lymphocytes (Manual) 1 L ESR PT 12.7 H INR 1.2 APTT 29.1 Sodium 126 L Potassium 4.5 Chloride 88 L Carbon Dioxide 27.7 Anion Gap 10 BUN 19 Creatinine 1.0 Estim Creat Clear Calc 89.4 eGFR > 60 BUN/Creatinine Ratio 19 Glucose [address] Glu mg/dL Hemoglobin A1c Calculated Osmolality 265 L Lactic Acid 3.3 H Calcium 9.5 Corrected Calcium 9.5 Phosphorus 3.2 Magnesium 1.9 Total Bilirubin 1.0 AST 33 ALT 86 H Alkaline Phosphatase 421 H Lactate Dehydrogenase 367 H Troponin I < 0.020 C-Reactive Prot, Quant B-Natriuretic Peptide 78 Total Protein 7.9 Albumin 4.5 Globulin 3.4 Albumin/Globulin Ratio 1.3 Lipase 31 Beta-Hydroxybutyrate/Acetoacetate 0.6 H Procalcitonin 8.32 H Ur Collection Type Voided Urine Color Yellow Urine Clarity Turbid A Urine pH 6.0 Ur Specific [place] 1.030 Urine Protein 2+ A Urine Glucose (UA) 4+ A Urine Ketones 2+ A Urine Blood 1+ A Urine Nitrite Negative Urine Bilirubin Negative Urine Urobilinogen (Auto) Negative Ur Leukocyte Esterase Positive Urine RBC 10 H Urine WBC 45 H Ur Squamous Epith Cells 2 Amorphous Crystals Present A Urine Bacteria 1+ A Hyaline Casts Urine Yeast (Budding) Present A Urine Sperm Present A Ur Culture Indicated? Yes Urine Opiates Screen Negative Urine Fentanyl Screen Negative Ur Barbiturates Screen Negative U Amphetamin/Meth Scrn Positive A U Benzodiazepines Scrn Negative U Cocaine Metab Screen Negative U Marijuana (THC) Screen Negative 06/04/24 06/04/24 06/05/24 17:54 20:00 05:08 WBC 27.3 H D RBC 3.59 L Hgb 10.5 L D Hct 30.5 L MCV 85 MCH 29.2 MCHC 34.4 RDW Std Deviation 39.4 Plt Count 353 D Neut % (Auto) 83 H Lymph % (Auto) 3 L [place] % (Auto) 4 Eos % (Auto) 0 Baso % (Auto) 0 Neut # (Auto) 22.5 H Lymph # (Auto) 0.9 L [place] # (Auto) 1.1 H Eos # (Auto) 0.0 Baso # (Auto) 0.0 Immature Gran # (Auto) 2.59 H Absolute Nucleated RBC 0.00 Immature Gran % 10 H Neutrophils % (Manual) Monocytes % (Manual) Metamyelocytes % Myelocytes % Nucleated RBC % 0 Band Neutrophils Lymphocytes (Manual) ESR 79 H PT INR APTT Sodium 133 L Potassium 3.8 D Chloride 98 Carbon Dioxide 25.9 Anion Gap 9 BUN 14 Creatinine 0.8 Estim Creat Clear Calc 111.7 eGFR > 60 BUN/Creatinine Ratio 18 Glucose [address] Glu mg/dL Cancelled Hemoglobin A1c Cancelled Calculated Osmolality 274 L Lactic Acid 1.7 Calcium 8.4 Corrected Calcium Phosphorus Magnesium Total Bilirubin AST ALT Alkaline Phosphatase Lactate Dehydrogenase Troponin I C-Reactive Prot, Quant > 30.4 H B-Natriuretic Peptide Total Protein Albumin Globulin Albumin/Globulin Ratio Lipase Beta-Hydroxybutyrate/Acetoacetate Procalcitonin Ur Collection Type Clean Catch Urine Color Yellow Urine Clarity Turbid A Urine pH 6.0 Ur Specific [place] 1.019 Urine Protein 1+ A Urine Glucose (UA) 4+ A Urine Ketones 1+ A Urine Blood Trace Urine Nitrite Negative Urine Bilirubin Negative Urine Urobilinogen (Auto) 2.0 Ur Leukocyte Esterase Positive Urine RBC 7 H Urine WBC 43 H Ur Squamous Epith Cells 2 Amorphous Crystals Urine Bacteria Rare Hyaline Casts < 1 Urine Yeast (Budding) Urine Sperm Ur Culture Indicated? Urine Opiates Screen Urine Fentanyl Screen Ur Barbiturates Screen U Amphetamin/Meth Scrn U Benzodiazepines Scrn U Cocaine Metab Screen U Marijuana (THC) Screen Assessment & Plan A&P Narrative bacteremia hx of pos flu but do not see pos test in labs. dm II, a1c pending. hx of dm noted. hx of psoas syndrome and L testicular orchitis with varicocele prior hiv and hep c neg in october 2023 narrowed to vanco alone. ordered repeat bc, a1c and echo and will f/u on wed abd notably benign. so process may be primarily resp and not abdominal. would not be surprised if bc with pneumococcus. if enterococcus, then abd may be implicated. Time Spent With Patient Time: Total time spent is greater than 50% in coordination of care (as documented) at patient's floor/unit and/or counseling patient:
--- NOTE | 2024-06-05 09:33 | ECHO_ITS ---
Transthoracic Echo Report Ht (in): 69 Wt (lb): 167 Exam Location: [facility]able Status: Inpatient Oncology Admin: Virginia Olivarez Indications: Procedure Performed: BP: 97 / 68 HR: 82 Rhythm: Tachycardia Technical Quality: Fair MEASUREMENTS (Male / Female) Normal Values 2D ECHO LV Diastolic Diameter PLAX 4.8 cm 4.2 - 5.9 / 3.9 - 5.3 cm LV Systolic Diameter PLAX 3.7 cm IVS Diastolic Thickness 1.1 cm 0.6 - 1.0 / 0.6 - 0.9 cm LVPW Diastolic Thickness 1.0 cm 0.6 - 1.0 / 0.6 - 0.9 cm LV Relative Wall Thickness 0.4 LVOT Diameter 1.9 cm LA Volume Index 19.6 cm?/m? 16 - 28 cm?/m? Ascending Aorta Diameter 2.5 cm M-MODE Aortic Root Diameter MM 2.4 cm LA Systolic Diameter MM 3.2 cm LA Ao Ratio MM 1.3 AV Cusp Separation MM 1.6 cm DOPPLER AV Peak Velocity 149.0 cm/s AV Peak Gradient 8.9 mmHg AV Mean Gradient 5.0 mmHg AV Velocity Time Integral 22.2 cm LVOT Peak Velocity 117.0 cm/s LVOT Peak Gradient 5.5 mmHg LVOT Velocity Time Integral 18.0 cm LVOT Cardiac Index 2170.6 cm?/min?m? AV Area Cont Eq vti 2.3 cm? AV Area Cont Eq pk 2.2 cm? MV Peak Velocity 99.0 cm/s MV Peak Gradient 3.9 mmHg MV Mean Velocity 76.0 cm/s MV Mean Gradient 3.0 mmHg MV Area PHT 6.3 cm? Mitral E Point Velocity 95.1 cm/s Mitral A Point Velocity 82.0 cm/s Mitral E to A Ratio 1.2 LV E' Lateral Velocity 8.2 cm/s Mitral E to LV E' Lateral Ratio 11.7 LV E' Septal Velocity 9.9 cm/s Mitral E to LV E' Septal Ratio 9.6 TR Peak Velocity 224.0 cm/s TR Peak Gradient 20.1 mmHg FINDINGS Left Ventricle Normal left ventricular size, wall thickness, systolic function with no obvious regional wall motion abnormalities. The ejection fraction is visually estimated at 50-55%. Right Ventricle The right ventricle is normal in size and systolic function. Left Atrium The left atrium is normal by two-dimensional, color flow and Doppler imaging with no structural abnormalities, no thrombus formation present. Right Atrium The right atrium is normal by two-dimensional imaging, color flow and Doppler imaging with no struct ural abnormalities, no thrombus formation present. Atrial Septum The interatrial septum appears normal with no evidence of a shunt. Aorta The aorta is normal by two-dimensional, color flow and Doppler interrogation. Mitral Valve The mitral valve is normal by two-dimensional, color flow and Doppler interrogation. There is no sig nificant mitral valve regurgitation. Aortic Valve The aortic valve is trileaflet and normal by two-dimensional, color flow and Doppler interrogation. There is trace aortic valve regurgitation. Tricuspid Valve The tricuspid valve is normal by two-dimensional, color flow and Doppler interrogation. There is tra ce tricuspid valve regurgitation. Pulmonic Valve There is no significant pulmonic valve regurgitation. Vessels The pulmonary artery appears normal. The inferior vena cava pulmonary and hepatic veins appear emperatriz l. Pericardium The pericardium is normal by two-dimensional imaging. There is no significant pericardial effusion. CONCLUSIONS Indication: GPC, bacteremia No clear vegeatations noted. TTE suboptimal and consider MARK if high clinical suspicion. Normal LV size and function. Estimated EF 55-60% Normal RV size and function. Trace AI, TR. Grady Ahmadi (Electronically Signed) Final Date: 05 June 2024 18:26
[2024-06-05] MEDS: NICOTINE PATCH 21 MG/24 HR PATCH.TD24 TOP (09:52)
[2024-06-05] MEDS: ENOXAPARIN SOD INJ 40 MG/0.4 ML SYRINGE SC (09:52)
[2024-06-05] MEDS: VANCOMYCIN/NS 1 GM IVPB 200 ML IV ×2 (09:52→13:09)
[2024-06-05] MEDS: OSELTAMIVIR 75 MG CAPSULE PO ×2 (09:52→20:14)
[2024-06-05] MEDS: INSULIN GLARGINE (Lantus) 5 UNIT/0.05 ML (PER 5 UNITS) 15 UNIT SC (09:53)
[2024-06-05] MEDS: INSULIN LISPRO (AdmeLOG) 1 UNIT/0.01 ML UNIT 5 UNIT SC (09:53)
[2024-06-05 09:59] LABS: Misc Send Out* See Sep Rpt
--- NOTE | 2024-06-05 11:55 | ESCONSULT_ITS ---
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 Guzman. REASON FOR CONSULTATION: Respiratory infection. HISTORY OF PRESENT ILLNESS: The patient reportedly has a flu and has pneumonia as well. He is on oxygen. He is a diabetic and states it is not controlled. He is on no medications. He has no other health problems. Surgeries include only right elbow surgery about 6 months ago here at the hospital. ALLERGIES: NONE KNOWN. IMMUNIZATIONS: Last tetanus is unknown. Last flu shot was two years at least. He has not had a COVID vaccine or pneumococcal vaccine. FAMILY HISTORY: Positive for diabetes. 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 He does smoke half a pack a day and uses methamphetamines. Denies alcohol use. PLAN: His urine drug screen is positive for methamphetamine. I do not see a positive flu test, but I assume that was true because he is on Tamiflu twice a day. Five days of Tamiflu is reasonable. I am not sure why he offered 7, but it is somewhat traditional to give 7 days of antibiotics for many things, but for influenza, I think 5 days of Tamiflu is probably fine. I am going to go ahead and shorten it myself to 5 days. His antibiotics are somewhat empiric. Vancomycin is probably fine for GPCs, so we will leave that on for now. Stop his other antibiotics and check on him again on Wednesday. DT: 09:53:48 TT: 10:43:00 Ref: [id number] - TID: [id number] MTDD
--- NOTE | 2024-06-05 12:36 | PC.SS ---
Patient is r/o TB and influenza A positive and meth positive. Admitted for sepsis. SS will follow up with patient on initial assessment. Patient currently getting MRI.
[2024-06-05] MEDS: INSULIN LISPRO (AdmeLOG) 1 UNIT/0.01 ML UNIT 7 UNIT SC (13:02)
--- NOTE | 2024-06-05 16:31 | PD.SURCONS ---
HPI Consult details History of present illness: 49M with DMII, history of septic bursitis of R elbow who was admitted 06/04 with generalized malaise and fever. Pt reports he has been feeling unwell for the past week including subjective fever and decreased appetite; he denies any recent travel but was in contact with a niece who was ill. During this time he also noted left lower back pain. Workup on admission showed WBC in 30s, influenza A+, and CT showed left lung opacity, left psoas muscle with air densities and inflammatory changes as well as cystitis. Pt has been managed with vancomycin, WBC is gradually downtrending although he reports still feeling unwell Review of Systems Review of Systems ROS Unobtainable: All systems reviewed & no additional complaints except as documented Meds Home Medications and Allergies Allergies Allergy/AdvReac Type Severity Reaction Status Date / Time No Known Allergies Allergy Unverified 06/04/24 14:42 Exam Vital Signs Temp Pulse Resp BP Pulse Ox O2 Del Method O2 Flow Rate 97.3 F 112 H 16 97/68 93 L Nasal Cannula 2 06/05/24 08:00 06/05/24 15:05 06/05/24 08:00 06/05/24 08:00 06/05/24 08:00 06/05/24 08:00 06/05/24 08:00 Constitutional Constitutional: mild distress Routine Respiratory Exam Respiratory: Present no resp distress Routine Abdominal Exam Abdominal: Present soft; Absent tenderness or distended Routine Back/Spine/Pelvis Exam Comments: mild induration at the left paraspinal region, no erythema or fluctuance Results Results: Laboratory Laboratory results: results reviewed Results: Imaging CT scan - abdomen: report reviewed and image reviewed Assessment & Plan Plan 49M with DMII admitted with malaise and findings of left sided PNA, cystitis and left psoas infection. CT and MRI are negative for any drainable collection, so there is no intervention that can be done for now Continue abx, trend WBC Glucose control Will follow up
[2024-06-05] MEDS: SODIUM CHLORIDE 0.9% 1000 ML 1,000 ML 75 ML IV (18:28)
--- NOTE | 2024-06-05 20:21 | PC.NURSE ---
86% O2 sat on room air- Applied O2 inh on at 2L/min/nc.
[2024-06-06] VITALS (13 sets, daily range): BP systolic 96–131; BP diastolic 56–80; PULSE 93–129; RESP 18–93; TEMP 36.4–38.3; O2SAT 90–96
[2024-06-06] MEDS: VANCOMYCIN/NS 1 GM IVPB 200 ML IV ×2 (00:03→07:22)
[2024-06-06] MEDS: HYDROcodone/APAP 5/325 TABLET 1 TAB PO ×3 (01:09→17:45)
[2024-06-06 06:02] LABS: Basophils # (Auto) 0.2 Thou/mm3 (0.0-0.2); Basophils % (Auto) 1 % (0-2.5); Eosinophils % (Auto) 0 % (0-10); Hemoglobin 10.3 g/dL (13.5-16.0); Immature Granulocytes % (Auto) 5 % (0-0); Immature Granulocytes Auto 0.92 Thou/mm3 (0.00-0.00); Lymphocytes % (Auto) 5 % (10-50); Mean Corpuscular HGB Conc 35.5 g/dl (31.0-37.0); Mean Corpuscular Hemoglobin 29.3 pg (25.0-35.0); Mean Corpuscular Volume 82 fL (80-100); Monocytes # (Auto) 1.2 Thou/mm3 (0.0-0.8); Monocytes % (Auto) 6 % (0-12); Neutrophils # (Auto) 16.1 Thou/mm3 (1.8-7.7); Neutrophils % (Auto) 83 % (37-80); Nucleated Red Blood Cell % 0 /100 WBC (0); Platelet Count 311 Thou/mm3 (140-440); RDW Standard Deviation 39.6 fL (35.1-43.9); Red Blood Count 3.52 Miln/mm3 (4.50-5.90); White Blood Count 19.3 Thou/mm3 (3.8-10.6)
--- NOTE | 2024-06-06 06:11 | PC.NURSE ---
vanco trough result pending.
[2024-06-06 06:17] LABS: Alanine Aminotransferase 79 U/L (10-49); Albumin, Serum 3.1 gm/dL (3.5-5.0); Albumin/Globulin Ratio 1.2 (1.2-2.2); Alkaline Phosphatase 456 U/L (46-116); Anion Gap 8 (7-16); Aspartate Amino Transferase 64 U/L (0-34); BUN/Creatinine Ratio 18 Ratio (12-20); Bilirubin,Total 0.9 mg/dL (0.3-1.2); Blood Urea Nitrogen 11 mg/dL (9-23); Calcium 8.3 mg/dL (8.3-10.6); Carbon Dioxide 24.7 mMol/L (20.0-31.0); Chloride 100 mMol/L (98-107); Creatinine (Component) 0.6 mg/dL (0.6-1.3); Estimated Creatinine Clearance 144.1 mL/min (>60); Globulin 2.5 gm/dL (2.3-3.5); Glucose 154 mg/dL (74-106); Magnesium 2.1 mg/dL (1.6-2.6); Osmolality,Calculated 268 (275-295); Phosphorous 2.4 mg/dL (2.4-5.1); Potassium 3.5 mMol/L (3.4-5.1); Sodium 133 mMol/L (136-145); Total Protein 5.6 gm/dL (5.7-8.2); eGFR > 60 See Note
[2024-06-06] MEDS: INSULIN LISPRO (AdmeLOG) 1 UNIT/0.01 ML UNIT SC ×3 (07:29→17:33)
[2024-06-06] MEDS: INSULIN LISPRO (AdmeLOG) 1 UNIT/0.01 ML UNIT 7 UNIT SC ×3 (07:29→17:34)
--- NOTE | 2024-06-06 07:51 | ESPR_ITS ---
Documentation for date of: 06/06/24 Subjective Subjective Interval history: No acute overnight events. Complains of chronic back pain, left hip pain improved with current reg. Has SOB, desatting low 90s on room air, on intermittent 2L NC. Has constipation but tolerating oral intake otherwise. Denies fever, chills, headaches, chest pain, sob, cough, GI or urinary symptoms. Exam Vital Signs Temp Pulse Resp BP Pulse Ox O2 Del Method O2 Flow Rate 97.9 F 93 19 96/56 L 96 Nasal Cannula 2 06/06/24 04:00 06/06/24 04:00 06/06/24 04:00 06/06/24 04:00 06/06/24 04:00 06/06/24 04:00 06/06/24 04:00 Narrative Exam GENERAL * Normal-appearing adult male, in mild distress due to pain HEENT * NCAT.?TETO. Oral mucosa is moist. Patent Nares NECK * Supple, nontender, no thyromegaly, no meningismus, no JVD, no step offs CHEST * RRR, no m/g/r * CTAB, no w/r/r. Symmetrical chest rise. No intercostal subcostal retraction * Atraumatic, nontender, no crepitus, symmetrical expansion. ABDOMEN * Soft, flat, nontender. No guarding/rebound tenderness/masses. * Bowel sounds presents EXTREMITIES * Nontender, no cyanosis, no edema * No edema/cyanosis.? * Positive left psoas sign. No overlying skin changes. SKIN * Warm and dry, no jaundice/rashes. NEUROMUSCULAR * No lumbar or midline, no CVA, no paraspinal muscle spasm or tenderness. * Moves all 4 extremities well, with full ROM and good CSM. * HEATH x4, CN II-XII grossly intact. * No focal neurologic deficits. PSYCHIATRY * Normal mood and affect, cooperative, no SI or HI or hallucinations. Objective Labs 06/10/24 05:40 06/10/24 05:40 Labs: Laboratory Results - last 24 hr 06/06/24 04:30 WBC 19.3 H D RBC 3.52 L Hgb 10.3 L Hct 29.0 L MCV 82 MCH 29.3 MCHC 35.5 RDW Std Deviation 39.6 Plt Count 311 D Neut % (Auto) 83 H Lymph % (Auto) 5 L Cache % (Auto) 6 Eos % (Auto) 0 Baso % (Auto) 1 Neut # (Auto) 16.1 H Lymph # (Auto) 1.0 Cache # (Auto) 1.2 H Eos # (Auto) 0.0 Baso # (Auto) 0.2 Immature Gran # (Auto) 0.92 H Absolute Nucleated RBC 0.00 Immature Gran % 5 H Nucleated RBC % 0 Sodium 133 L Potassium 3.5 Chloride 100 Carbon Dioxide 24.7 Anion Gap 8 BUN 11 Creatinine 0.6 Estim Creat Clear Calc 144.1 eGFR > 60 BUN/Creatinine Ratio 18 Glucose 154 H D Calculated Osmolality 268 L Calcium 8.3 Corrected Calcium 9.0 Phosphorus 2.4 Magnesium 2.1 Total Bilirubin 0.9 AST 64 H ALT 79 H Alkaline Phosphatase 456 H D Total Protein 5.6 L Albumin 3.1 L D Globulin 2.5 Albumin/Globulin Ratio 1.2 Vancomycin Trough 13.0 H Quality Measures Quality Measures none Assessment & Plan Assessment Current Active Medications: Generic Name Dose Route Start Last Admin Trade Name Freq PRN Reason Stop Dose Admin Acetaminophen 650 mg 06/04/24 19:42 Acetaminophen 325 Mg Tablet PO 07/04/24 19:41 Q6H PRN Fever >101.5 Hydrocodone Bitart/Acetaminophen 1 tab 06/04/24 19:42 06/06/24 07:41 Hydrocodone/Apap 5/325 Tablet PO 06/09/24 19:41 1 tab Q4HR PRN Administration PAIN SCALE 4-6 (Moderate Dextrose 25 ml 06/04/24 19:49 Dextrose 50%-Water Inj 50 Ml Syringe IV 07/04/24 19:48 Q15MIN PRN BG 50-70 responsive npo pt Dextrose 50 ml 06/04/24 19:49 Dextrose 50%-Water Inj 50 Ml Syringe IV 07/04/24 19:48 Q15MIN PRN BG <50 OR BG <70 & pt unresponsive Enoxaparin Sodium 40 mg 06/05/24 09:00 06/05/24 09:52 Enoxaparin Sod Inj 40 Mg/0.4 Ml Syringe SC 06/19/24 08:59 40 mg QDAY WARD Administration Glucagon 1 mg 06/04/24 19:49 Glucagon Inj 1 Mg Vial IM Q15MIN PRN BG <70, and no IV access Guaifenesin 200 mg 06/04/24 20:53 Guaifenesin Syrup 200 Mg/10 Ml Udc PO 07/04/24 20:52 QID PRN COUGH OR CONGESTION Protocol Vancomycin/Sodium Chloride 200 mls @ 120 mls/hr 06/05/24 07:45 06/06/24 07:22 Vancomycin/Ns 1 Gm Ivpb IV 06/12/24 07:44 120 mls/hr Q8HR WARD Administration Protocol Sodium Chloride 1,000 mls @ 75 mls/hr 06/05/24 10:40 06/05/24 18:28 Ns IV 07/05/24 10:39 75 mls/hr .[id number] WARD Administration Insulin Glargine 15 unit 06/06/24 21:00 Insulin Glargine (Lantus) 5 Unit/0.05 Ml (Per 5 Units) SC 07/06/24 20:59 HS WARD Insulin Human Lispro 0 unit 06/05/24 07:30 06/06/24 07:29 Insulin Lispro (Admelog) 1 Unit/0.01 Ml Unit SC 07/05/24 07:29 2 unit AC WARD Administration Protocol Insulin Human Lispro 7 unit 06/05/24 12:00 06/06/24 07:29 Insulin Lispro (Admelog) 1 Unit/0.01 Ml Unit SC 07/05/24 11:59 7 unit TIDWM WARD Administration Nicotine 21 mg 06/05/24 09:00 06/05/24 09:52 Nicotine Patch 21 Mg/24 Hr Patch.Td24 TOP 07/05/24 08:59 21 mg QDAY WARD Administration Oseltamivir Phosphate 75 mg 06/05/24 21:00 06/05/24 20:14 Oseltamivir 75 Mg Capsule PO 06/09/24 22:00 75 mg BID WARD Administration Pharmacy Consult 1 each 06/05/24 08:00 Vancomycin Pharmacy To Dose 1 Each Each IV 07/05/24 07:59 QDAY@0800 PRN CONSULT Plan In summary: 49-year-old male IDDM, presents with generalized body pain and fever x 1 week Also endorsing bitemporal headache and dizziness upon standing, dysuria x 3 weeks. He was admitted for sepsis in settings of influenza A and GPC bacteremia. ID is following. Continued on VANCOMYCIN for GPC, TAMIFLU for influenza. Pending TB workup as patient had inflamed left psoas, suggestive of TB origin. Pending repeat blood culture, urine culture, QuantiFERON. Appreciate recommendations from ID, general surgery. Sepsis settings of: Left Psoas infective myositis, possibly ? Latent TB Influenza A GPC bacteremia 3/4 SIRS tachycardia, tachypnea and leukocytosis, with source of infection GPC bacteremia, influenza A, less likely left psoas abscess. No surgical intervention from general surgery perspective. Discussed with radiology, did not indicate presence of drainable abscess, relieved inflamed psoas muscle characteristic of tuberculosis infection. ID following, recommending VANCOMYCIN only for GPC, continue TAMIFLU. CT and MRI indicated prominent infectious process involving the psoas muscle on the left including in the pelvis, highly susp for infectious process including TB. ECHO No clear vegeatations noted, EF 55-60%, recommended TTE if high clinical suspicion. MRSA negative. Adequately fluid resuscitated. Afebrile. No leukocytosis. ? Continue TAMIFLU 75 mg BID (06/22 to [present]) ? Continue VANCOMYCIN pharmacy dosed (06/22 to [present]) ? Continue GUAIFENESIN 200 mg QID ? Pending repeat blood culture, urine culture, QuantiFERON Cystitis UTI Patient endorsed dysuria for the past 3 weeks. We previously started CEFEPIME, METRONIDAZOLE for suspected psoas abscess which would also cover UTI. Currently on VANCOMYCIN only. Infectious disease following. Pending urine culture. Currently asymptomatic. Will restart ANTIBIOTICS as needed. ? Pending urine culture Hyponatremia (improving) Hypochloremia Likely dehydrational. Admission sodium 129, currently 133 ? Normal saline maintenance fluids at 125 cc/hour ? Daily CMP Insulin dependent Diabetes mellitus type 2 On INSULIN GLARGINE 15 units. A1C >14 this visit. GLUCOSE is WNL. Home medication Insulin glargine 15U SC daily ? Continue glargine 15 units SH ? Continue LISPRO 7 units TID ? INSULIN sliding scale ? Accu-Cheks ? Diabetic education Mild transaminitis In settings of sepsis. Improving. ? Daily CMP Methamphetamine use Tobacco dependence Patient reported daily meth use since 1996, last used 2 days ago. Patient has approximately [id number] smoking history. Currently smokes 1 pack a day. U-Tox positive for METHAMPHETAMINE ? Consulted on tobacco and METH cessation ? NICOTINE patch 21 mg daily Hx of Dorsalgia Complains of chronic low back pain. ? Continue LIDOCAINE patches daily ? Continue home GABAPENTIN 300 mg daily Health maintenance Diet: CHO consistent GI prophylaxis: PROTONIX DVT prophylaxis: LOVENOX Antibiotics: VANCOMYCIN, TAMIFLU CODE STATUS: Full code Disposition: Pending troponin, improvement in symptoms Patient case was discussed with attending, José Newman MD and senior residents Dr. Bauer and Dr. Howell. Linnea Swnan, DO PGYI Senior Resident Attestation: The patient is a 49-year-old male with significant past medical history of IDDM type II, methamphetamine abuse disorder since 1996 by using glass pipe to smoke presented with chief complaint of generalized body pain and fever for 1 week. The patient was found to have sepsis secondary to left psoas infective myositis and influenza A including GPC bacteremia with possible latent TB. CT and MRI of pelvis did not reveal any abscess, so GI surgeon Dr. Jett there would not be any surgical intervention at this point. The patient is currently on vancomycin as recommended by ID Dr Medel, and Tamiflu 75 Mg twice daily. For chronic back pain we will continue him on lidocaine patch and gabapentin 300 Mg daily. I discussed with and supervised the materials intern physician involved in the care of this patient. I personally saw and examined the patient and discussed the assessment and plan with the entire medicine team, including my attending. I agree with the assessment and plan as documented above. Piotr Howell MD PGY2 Internal Medicine Attending Provider Attestation/Addendum I have examined the patient, reviewed labs and imaging findings, discussed the case with the resident(s), and reviewed entered orders. I agree with the plan of care as outlined in this note, with these additional summaries/recommendations: Patient seen at bedside. Patient is endorsing significant back pain today and we will obtain imaging. Patient admitted for SIRS criteria which is multifactorial secondary to influenza A & GPC bacteremia. Urinalysis suggestive of UTI although no urinary symptoms at this time. Blood cultures currently growing GPC and urine culture plus MRSA screen pending. Infectious disease consulted and will continue IV vancomycin plus tamiflu. Echocardiogram showed no vegatations. Significant leukocytosis on admission of 34.3 improved to 27.3 and now 19.3. Patient was found to have diffusely abnormal left psoas muscle was stranding and air densities indicative of infectious process. MRI pelvis was obtained which showed prominent infectious process again involving the left psoas muscle. Medical team spoke with radiology and no drainable fluid collection at this time. Possibly represents an infectious process including tuberculosis of psoas muscle. No evidence of [place] disease at this time although now endorsing back pain and will obtain imaging. Quantiferon Gold ordered and pending results. Patient has uncontrolled diabetes mellitus type 2 and currently receiving basal bolus insulin. A1c send out and likely greater than 14% based on previous readings. Patient was counseled extensively on the importance of blood sugar management and substance abuse cessation and in agreement. Repeat hematology and chemistry panel in AM. Dr. Newman
[2024-06-06] MEDS: ENOXAPARIN SOD INJ 40 MG/0.4 ML SYRINGE SC (08:38)
[2024-06-06] MEDS: NICOTINE PATCH 21 MG/24 HR PATCH.TD24 TOP (08:38)
[2024-06-06] MEDS: OSELTAMIVIR 75 MG CAPSULE PO ×2 (08:38→21:01)
[2024-06-06] MEDS: SENNA/DOCUSATE SOD 1 TAB TABLET PO (09:47)
[2024-06-06] MEDS: LIDOCAINE 5% 1 PATCH TOP (09:47)
[2024-06-06] MEDS: GABAPENTIN 300 MG CAPSULE PO (11:38)
[2024-06-06] MEDS: VANCOMYCIN/WATER 1250 MG IVPB 250 ML 120 MG IV ×2 (14:46→21:01)
[2024-06-06] MEDS: SODIUM CHLORIDE 0.9% 1000 ML 1,000 ML 75 ML IV (14:47)
--- NOTE | 2024-06-06 15:52 | PC.SS ---
Patient is alert/oriented. Patient resides with his mother. Prior to hospitalization he was somewhat independent with ADL's. Patient states he was only walking short distances prior. Patient was admitted with sepsis. He's currently on r/o TB. Meth positive and influenza A and B. Patient is in an isolation room. Patient is complaining of pain. He states he's never had hx of TB. When asked about his meth tox, patient states he's been doing meth for years. Patient states he's interested in having resources. He's not sure if he will go though. Patient states he was seeing Dr. Curran @ [facility]. He does not want to return. He wants a new p.c.p. offered the [facility]. Patient is agreeable. Patient states his last appt. visit was 6 months ago. He plans on returning home with his mother. Patient states [facility]. Patient states his niece, Maritza, will be assisting him when he is discharged. Patient states he feels like he can't walk. SS explained we will see if physician can put in a PT evaluation order to determine any needs. Patient verbalized that his mother, Jennyfer, is the alt medical decision maker. Alt medical decision maker: motherJennyfer, Niece, Maritza, will assist in any d/c needs: [phone]
[2024-06-06] MEDS: KETOROLAC INJ 30 MG/ML VIAL IVP (17:08)
[2024-06-06] MEDS: INSULIN GLARGINE (Lantus) 5 UNIT/0.05 ML (PER 5 UNITS) 15 UNIT SC (21:00)
[2024-06-07] VITALS (9 sets, daily range): BP systolic 94–119; BP diastolic 66–80; PULSE 86–125; RESP 16–23; TEMP 36.2–37.8; O2SAT 90–95
--- NOTE | 2024-06-07 | XR_ITS ---
Examination: MRI thoracic spine without contrast. Date and time of exam: June 07, 2024 0746 hours INDICATIONS: Back pain body aches one week Technique: Multiple sagittal and axial images of the thoracic spine have been obtained. T1 weighted localizer, sagittal T2 weighted images, TR 30-50, TE 148, T1 weighted sagittal images, TR 650, TE 14, T2-weighted transverse images, TR 6770, TE 142 Findings: Adequate alignment thoracic vertebral bodies on the lateral view Mild depression superior endplate T12, chronic T5-T6 3 mm left paracentral disc bulge T6-T7 2 mm central lumbar disc bulge No localized enlargement thoracic cord No syrinx cavity Impression: Mild thoracic disc bulges as above No significant impingement upon the thoracic cord
[2024-06-07] MEDS: HYDROcodone/APAP 5/325 TABLET 1 TAB PO ×3 (03:47→21:03)
[2024-06-07] MEDS: guaiFENesin SYRUP 200 MG/10 ML UDC PO (04:34)
[2024-06-07] MEDS: VANCOMYCIN/WATER 1250 MG IVPB 250 ML 120 MG IV (05:55)
[2024-06-07 06:08] LABS: Basophils # (Auto) 0.1 Thou/mm3 (0.0-0.2); Basophils % (Auto) 1 % (0-2.5); Eosinophils # (Auto) 0.1 Thou/mm3 (0.0-0.5); Eosinophils % (Auto) 0 % (0-10); Hematocrit 28.9 % (41.0-53.0); Hemoglobin 10.2 g/dL (13.5-16.0); Immature Granulocytes % (Auto) 8 % (0-0); Lymphocytes # (Auto) 0.8 Thou/mm3 (1.0-4.8); Lymphocytes % (Auto) 5 % (10-50); Mean Corpuscular HGB Conc 35.3 g/dl (31.0-37.0); Mean Corpuscular Hemoglobin 28.8 pg (25.0-35.0); Mean Corpuscular Volume 82 fL (80-100); Monocytes # (Auto) 1.4 Thou/mm3 (0.0-0.8); Monocytes % (Auto) 9 % (0-12); Neutrophils # (Auto) 11.9 Thou/mm3 (1.8-7.7); Neutrophils % (Auto) 77 % (37-80); Nucleated Red Blood Cell % 0 /100 WBC (0); Platelet Count 326 Thou/mm3 (140-440); RDW Standard Deviation 40.2 fL (35.1-43.9); Red Blood Count 3.54 Miln/mm3 (4.50-5.90); White Blood Count 15.6 Thou/mm3 (3.8-10.6)
[2024-06-07 06:48] LABS: Alanine Aminotransferase 62 U/L (10-49); Albumin, Serum 2.9 gm/dL (3.5-5.0); Albumin/Globulin Ratio 1.1 (1.2-2.2); Alkaline Phosphatase 630 U/L (46-116); Anion Gap 7 (7-16); Aspartate Amino Transferase 47 U/L (0-34); BUN/Creatinine Ratio 23 Ratio (12-20); Bilirubin,Total 0.9 mg/dL (0.3-1.2); Blood Urea Nitrogen 18 mg/dL (9-23); Calcium 7.9 mg/dL (8.3-10.6); Calcium (Corrected) 8.8 mg/dL (8.5-10.1); Chloride 100 mMol/L (98-107); Creatinine (Component) 0.8 mg/dL (0.6-1.3); Estimated Creatinine Clearance 108.1 mL/min (>60); Globulin 2.6 gm/dL (2.3-3.5); Glucose 302 mg/dL (74-106); Magnesium 2.1 mg/dL (1.6-2.6); Osmolality,Calculated 275 (275-295); Phosphorous 2.3 mg/dL (2.4-5.1); Potassium 3.5 mMol/L (3.4-5.1); Sodium 131 mMol/L (136-145); Total Protein 5.5 gm/dL (5.7-8.2); eGFR > 60 See Note
[2024-06-07] MEDS: INSULIN LISPRO (AdmeLOG) 1 UNIT/0.01 ML UNIT 7 UNIT SC (07:35)
[2024-06-07] MEDS: INSULIN LISPRO (AdmeLOG) 1 UNIT/0.01 ML UNIT SC ×2 (07:35→11:46)
--- NOTE | 2024-06-07 08:17 | ESPR_ITS ---
<Statement entered by Anna Eastman MD - 06/13/24 12:09> I reviewed above note and agree with findings and plans. I have also personally examined the patient with medicine team and went over assessment and plan with medical team including paid intern and resident physician. Documentation for date of: 06/07/24 Subjective Subjective Interval history: No acute overnight events. Complaining of anxiety, agitation, generalized body ache and fever. States he feels like he is withdrawing from METHAMPHETAMINE which he uses daily. Psoas pain and back pain managed with current regimen. Also reports constipation, no BMs x 2 days. Urinating independently. Denies chills, headaches, chest pain, sob, cough, other GI or urinary symptoms. Exam Vital Signs Temp Pulse Resp BP Pulse Ox O2 Del Method O2 Flow Rate 98.0 F 94 20 94/67 91 L Nasal Cannula 2 06/07/24 07:58 06/07/24 07:58 06/07/24 07:58 06/07/24 07:58 06/07/24 07:58 06/07/24 07:58 06/07/24 07:58 Narrative Exam GENERAL * Normal-appearing adult male, in mild distress due to pain HEENT * NCAT.?TETO. Oral mucosa is moist. Patent Nares NECK * Supple, nontender, no thyromegaly, no meningismus, no JVD, no step offs CHEST * RRR, no m/g/r * CTAB, no w/r/r. Symmetrical chest rise. No intercostal subcostal retraction * Atraumatic, nontender, no crepitus, symmetrical expansion. ABDOMEN * Soft, flat, nontender. No guarding/rebound tenderness/masses. * Bowel sounds presents EXTREMITIES * Nontender, no cyanosis, no edema * No edema/cyanosis.? * Positive left psoas sign. No overlying skin changes. SKIN * Warm and dry, no jaundice/rashes. NEUROMUSCULAR * No lumbar or midline, no CVA, no paraspinal muscle spasm or tenderness. * Moves all 4 extremities well, with full ROM and good CSM. * HEATH x4, CN II-XII grossly intact. * No focal neurologic deficits. PSYCHIATRY * Normal mood and affect, cooperative, no SI or HI or hallucinations. Objective Labs 06/08/24 04:50 06/08/24 04:50 Labs: Laboratory Results - last 24 hr 06/07/24 05:57 WBC 15.6 H RBC 3.54 L Hgb 10.2 L Hct 28.9 L MCV 82 MCH 28.8 MCHC 35.3 RDW Std Deviation 40.2 Plt Count 326 Neut % (Auto) 77 Lymph % (Auto) 5 L [place] % (Auto) 9 Eos % (Auto) 0 Baso % (Auto) 1 Neut # (Auto) 11.9 H Lymph # (Auto) 0.8 L [place] # (Auto) 1.4 H Eos # (Auto) 0.1 Baso # (Auto) 0.1 Immature Gran # (Auto) 1.30 H Absolute Nucleated RBC 0.00 Immature Gran % 8 H Nucleated RBC % 0 Sodium 131 L Potassium 3.5 Chloride 100 Carbon Dioxide 24.0 Anion Gap 7 BUN 18 Creatinine 0.8 Estim Creat Clear Calc 108.1 eGFR > 60 BUN/Creatinine Ratio 23 H Glucose 302 H D Calculated Osmolality 275 Calcium 7.9 L Corrected Calcium 8.8 Phosphorus 2.3 L Magnesium 2.1 Total Bilirubin 0.9 AST 47 H ALT 62 H Alkaline Phosphatase 630 H D Total Protein 5.5 L Albumin 2.9 L Globulin 2.6 Albumin/Globulin Ratio 1.1 L Quality Measures Quality Measures none Assessment & Plan Assessment Current Active Medications: Generic Name Dose Route Start Last Admin Trade Name Freq PRN Reason Stop Dose Admin Acetaminophen 650 mg 06/04/24 19:42 Acetaminophen 325 Mg Tablet PO 07/04/24 19:41 Q6H PRN Fever >101.5 Hydrocodone Bitart/Acetaminophen 1 tab 06/04/24 19:42 06/07/24 03:47 Hydrocodone/Apap 5/325 Tablet PO 06/09/24 19:41 1 tab Q4HR PRN Administration PAIN SCALE 4-6 (Moderate Dextrose 25 ml 06/04/24 19:49 Dextrose 50%-Water Inj 50 Ml Syringe IV 07/04/24 19:48 Q15MIN PRN BG 50-70 responsive npo pt Dextrose 50 ml 06/04/24 19:49 Dextrose 50%-Water Inj 50 Ml Syringe IV 07/04/24 19:48 Q15MIN PRN BG <50 OR BG <70 & pt unresponsive Enoxaparin Sodium 40 mg 06/05/24 09:00 06/06/24 08:38 Enoxaparin Sod Inj 40 Mg/0.4 Ml Syringe SC 06/19/24 08:59 40 mg QDAY WARD Administration Gabapentin 300 mg 06/06/24 11:15 06/06/24 11:38 Gabapentin 300 Mg Capsule PO 07/06/24 11:14 300 mg QDAY WADR Administration Glucagon 1 mg 06/04/24 19:49 Glucagon Inj 1 Mg Vial IM Q15MIN PRN BG <70, and no IV access Guaifenesin 200 mg 06/04/24 20:53 06/07/24 04:34 Guaifenesin Syrup 200 Mg/10 Ml Udc PO 07/04/24 20:52 200 mg QID PRN Administration COUGH OR CONGESTION Protocol Sodium Chloride 1,000 mls @ 75 mls/hr 06/05/24 10:40 06/06/24 14:47 Ns IV 07/05/24 10:39 75 mls/hr .[id number] WARD Administration Vancomycin HCl 250 mls @ 120 mls/hr 06/06/24 14:00 06/07/24 05:55 Vancomycin/Water 1250 Mg Ivpb IV 06/13/24 13:59 120 mls/hr Q8HR WARD Administration Insulin Glargine 15 unit 06/06/24 21:00 06/06/24 21:00 Insulin Glargine (Lantus) 5 Unit/0.05 Ml (Per 5 Units) SC 07/06/24 20:59 15 unit HS WARD Administration Insulin Human Lispro 0 unit 06/05/24 07:30 06/07/24 07:35 Insulin Lispro (Admelog) 1 Unit/0.01 Ml Unit SC 07/05/24 07:29 4 unit AC WARD Administration Protocol Insulin Human Lispro 7 unit 06/05/24 12:00 06/07/24 07:35 Insulin Lispro (Admelog) 1 Unit/0.01 Ml Unit SC 07/05/24 11:59 7 unit TIDWM WARD Administration Ketorolac Tromethamine 30 mg 06/06/24 15:31 06/06/24 17:08 Ketorolac Inj 30 Mg/Ml Vial IVP 06/11/24 15:30 30 mg Q6HR PRN Administration PAIN SCALE 7-10 (Severe Lidocaine 1 patch 06/06/24 09:16 06/06/24 09:47 Lidocaine 5% 1 Patch TOP 07/06/24 09:15 1 patch DAILY PRN Administration LOCALIZED PAIN Nicotine 21 mg 06/05/24 09:00 06/06/24 08:38 Nicotine Patch 21 Mg/24 Hr Patch.Td24 TOP 07/05/24 08:59 21 mg QDAY WARD Administration Oseltamivir Phosphate 75 mg 06/05/24 21:00 06/06/24 21:01 Oseltamivir 75 Mg Capsule PO 06/09/24 22:00 75 mg BID WARD Administration Pharmacy Consult 1 each 06/05/24 08:00 Vancomycin Pharmacy To Dose 1 Each Each IV 07/05/24 07:59 QDAY@0800 PRN CONSULT Polyethylene Glycol 17 gm 06/07/24 09:00 Polyethylene Glycol 17 Gm Packet PO 07/07/24 08:59 QDAY WARD Sennosides 1 tab 06/06/24 09:15 06/06/24 09:47 Senna/Docusate Sod 1 Tab Tablet PO 07/06/24 09:14 1 tab QDAY PRN Administration CONSTIPATION Protocol Sennosides 1 tab 06/06/24 09:15 Senna Tablet PO 07/06/24 09:14 QDAY PRN CONSTIPATION Protocol Plan In summary: 49-year-old male IDDM, presents with generalized body pain and fever x 1 week Also endorsing bitemporal headache and dizziness upon standing, dysuria x 3 weeks. He was admitted for sepsis in settings of influenza A and GPC bacteremia. ID is following. Continued on VANCOMYCIN for GPC, TAMIFLU for influenza. Pending TB workup as patient had inflamed left psoas, suggestive of TB origin. Pending repeat blood culture, urine culture, QuantiFERON. Appreciate recommendations from ID, general surgery. 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 No surgical intervention from general surgery perspective. CT and MRI indicated prominent infectious process involving the psoas muscle on the left including in the pelvis, highly susp for infectious process including TB. General surgery recommended drainage, IR does not feel there is loculated fluid to be drained. Echo showed no clear vegetations, fraction 55-60%, recommended MARK for high clinical suspicion. Blood culture repeatedly showing GPC. MRSA negative. Continued on VANCOMYCIN for GPC bactermia. Will cover for MSSA with CEFTRIAXONE. Continued on TAMIFLU for influenza. Will consider MARK if symptoms worsen or do not improve. Also ordered MRI spine to rule out spinal abscess given complaints of chronic pain. Although he has a history of dorsalgia as discussed below Leukocytosis improving. Persistent tachycardic and had febrile episode of 100.9, most likely related to METH withdrawal as discussed below. ? Continue TAMIFLU 75 mg BID (06/05 to [present]) ? Continue VANCOMYCIN pharmacy dosed (06/05 to [present]) ? Continue CEFTRIAXONE 2 mg (06/07 to [present]) ? Continue GUAIFENESIN 200 mg QID ? Pending repeat blood culture, urine culture, QuantiFERON ? Pending MRI lumbar and thoracic spine Cystitis UTI Patient endorsed dysuria for the past 3 weeks. We previously started CEFEPIME, METRONIDAZOLE for suspected psoas abscess which would also cover UTI. Currently asymptomatic. Urine cultures were negative, covering with CEFTRIAXONE anyways as above. ? Continue following cultures. Hyponatremia (improving) Hypochloremia Likely dehydrational. Admission sodium 129, currently 131 ? Normal saline maintenance fluids at 125 cc/hour ? Daily CMP Insulin dependent Diabetes mellitus type 2 On INSULIN GLARGINE 15 units. A1C >14 this visit. Certainly needs glycemic control to aid with infection recovery. Glucose 300 today. We increased INSULIN as below. Home medication Insulin glargine 15U SC daily ? Continue glargine 20 units SH ? Continue LISPRO 7 units TID ? INSULIN sliding scale ? Accu-Cheks ? Diabetic education Mild transaminitis In settings of sepsis. Improving. ? Daily CMP METHAMPHETAMINE withdrawal Active METH use Tobacco dependence Patient reported daily meth use since 1996, last used 2 days ago. U tox was positive. Currently experiencing withdrawal symptoms with agitation, generalized pain, tachycardia and fever. Patient has approximately [id number] smoking history. Currently smokes 1 pack a day. U-Tox positive for METHAMPHETAMINE. ? Consulted on tobacco and METH cessation ? Continue LORAZEPAM 1 mg q.6h. PRN ? Continue NICOTINE patch 21 mg daily Hx of Dorsalgia Complains of chronic low back pain. ? Continue LIDOCAINE patches daily ? Continue home GABAPENTIN 300 mg daily ? Pending MRI thoracic/lumbar to rule out abscess or infection as discussed above. Constipation No bowel movement since admission. ? Added bowel regimen Health maintenance Diet: CHO consistent GI prophylaxis: PROTONIX DVT prophylaxis: LOVENOX Antibiotics: VANCOMYCIN, CTX, TAMIFLU CODE STATUS: Full code Disposition: Pending blood cultures Patient case was discussed with attending, Dr. Anna Eastman MD and senior residents Dr. Bauer and Dr. Howell. Linnea Swann, DO PGYI Senior Resident Attestation: The patient reported generalized body weakness, nausea and was agitated. Vitals were stable initially, later started having tachycardia and no significant change in physical exam. White count Trended down to 15.6, blood sugar was 302 this morning with phosphorus 2.3. There was mild transaminitis. MRI lumbar and thoracic spine pending. Repeat blood culture again grew GPC's. Previous blood culture revealed MSSA. ID Dr Medel agreed with continuing ceftriaxone 2 g daily along with vancomycin. If the patient's repeat BCx is positive again, we will consider getting MARK. We will continue with tamiflu for Influenza. Added on lorazepam 1mg IV Q6H PRN for agitation 2/2 meth withdrawal. Increased Lantus to 20 U daily at night. Continue with pain medications. I discussed with and supervised the paid intern physician involved in the care of this patient. I personally saw and examined the patient and discussed the assessment and plan with the entire medicine team, including my attending. I agree with the assessment and plan as documented above. Piotr Howell MD PGY2 Internal Medicine
[2024-06-07] MEDS: POLYETHYLENE GLYCOL 17 GM PACKET PO (08:56)
[2024-06-07] MEDS: GABAPENTIN 300 MG CAPSULE PO (08:56)
[2024-06-07] MEDS: OSELTAMIVIR 75 MG CAPSULE PO ×2 (08:57→20:52)
[2024-06-07] MEDS: NICOTINE PATCH 21 MG/24 HR PATCH.TD24 TOP (08:57)
[2024-06-07] MEDS: NAPH,KPH MBDB 1 PACKET (1.5 GM) PO ×2 (08:57)
[2024-06-07] MEDS: ENOXAPARIN SOD INJ 40 MG/0.4 ML SYRINGE SC (08:57)
[2024-06-07] MEDS: INSULIN LISPRO (AdmeLOG) 1 UNIT/0.01 ML UNIT 10 UNIT SC (11:47)
[2024-06-07] MEDS: SODIUM CHLORIDE 0.9% 1000 ML 1,000 ML 75 ML IV (11:47)
[2024-06-07 13:22] LABS: Vancomycin,Trough 18.3 mcg/mL (5.0-10.0)
--- NOTE | 2024-06-07 13:56 | ESPR_ITS ---
Subjective Subjective Interval history: repeat cx pending. pos again the other day. staph aureus noted. ox s. on rocephin . Exam Vital Signs Temp Pulse Resp BP Pulse Ox O2 Del Method O2 Flow Rate 97.2 F 86 20 104/66 91 L Nasal Cannula 2 06/07/24 12:00 06/07/24 12:00 06/07/24 12:00 06/07/24 12:00 06/07/24 12:00 06/07/24 12:00 06/07/24 12:00 Objective - Internal Medicine Labs 06/07/24 05:57 06/07/24 05:57 Labs: Laboratory Results - last 24 hr 06/07/24 06/07/24 05:57 12:41 WBC 15.6 H RBC 3.54 L Hgb 10.2 L Hct 28.9 L MCV 82 MCH 28.8 MCHC 35.3 RDW Std Deviation 40.2 Plt Count 326 Neut % (Auto) 77 Lymph % (Auto) 5 L [place] % (Auto) 9 Eos % (Auto) 0 Baso % (Auto) 1 Neut # (Auto) 11.9 H Lymph # (Auto) 0.8 L [place] # (Auto) 1.4 H Eos # (Auto) 0.1 Baso # (Auto) 0.1 Immature Gran # (Auto) 1.30 H Absolute Nucleated RBC 0.00 Immature Gran % 8 H Nucleated RBC % 0 Sodium 131 L Potassium 3.5 Chloride 100 Carbon Dioxide 24.0 Anion Gap 7 BUN 18 Creatinine 0.8 Estim Creat Clear Calc 108.1 eGFR > 60 BUN/Creatinine Ratio 23 H Glucose 302 H D Calculated Osmolality 275 Calcium 7.9 L Corrected Calcium 8.8 Phosphorus 2.3 L Magnesium 2.1 Total Bilirubin 0.9 AST 47 H ALT 62 H Alkaline Phosphatase 630 H D Total Protein 5.5 L Albumin 2.9 L Globulin 2.6 Albumin/Globulin Ratio 1.1 L Vancomycin Trough 18.3 H Assessment & Plan A&P Narrative bacteremia. mssa hx of pos flu but do not see pos test in labs. dm II, a1c hx of psoas syndrome and L testicular orchitis with varicocele prior hiv and hep c neg in october 2023 narrowed to vanco alone. ordered repeat bc, a1c and echo and will f/u on wed usually we give ancef for os x stap iin the short run butt rocephin likely to work mcc. . I may check in wednesday am, but am not sure at this time get heather if ore bc pos Time Spent With Patient Time: Total time spent is greater than 50% in coordination of care (as documented) at patient's floor/unit and/or counseling patient:
[2024-06-07] MEDS: VANCOMYCIN/NS 1 GM IVPB 200 ML IV ×2 (14:01→22:00)
--- NOTE | 2024-06-07 14:03 | PC.NURSE ---
Vanco dose and administration verified with pharmacy, ok to give.
[2024-06-07 16:11] LABS: HIV (1&2) Antibody Rapid Non-Reactive
[2024-06-07] MEDS: LORazepam 0.5 MG TABLET 1 MG PO (17:09)
[2024-06-07] MEDS: LACTULOSE SYRUP 20 GM/30 ML UDC PO (18:14)
[2024-06-07] MEDS: INSULIN GLARGINE (Lantus) 5 UNIT/0.05 ML (PER 5 UNITS) 20 UNIT SC (20:53)
[2024-06-08] VITALS (10 sets, daily range): BP systolic 113–160; BP diastolic 68–92; PULSE 84–127; RESP 18–23; TEMP 36.6–37.7; O2SAT 91–95
[2024-06-08] MEDS: HYDROcodone/APAP 5/325 TABLET 1 TAB PO ×4 (01:21→21:51)
[2024-06-08] MEDS: VANCOMYCIN/NS 1 GM IVPB 200 ML IV (06:05)
[2024-06-08] MEDS: SODIUM CHLORIDE 0.9% 1000 ML 1,000 ML 75 ML IV ×2 (06:05→22:35)
[2024-06-08 06:11] LABS: Basophils % (Auto) 0 % (0-2.5); Eosinophils # (Auto) 0.1 Thou/mm3 (0.0-0.5); Eosinophils % (Auto) 0 % (0-10); Hematocrit 28.8 % (41.0-53.0); Immature Granulocytes % (Auto) 12 % (0-0); Immature Granulocytes Auto 1.79 Thou/mm3 (0.00-0.00); Lymphocytes # (Auto) 1.4 Thou/mm3 (1.0-4.8); Lymphocytes % (Auto) 9 % (10-50); Mean Corpuscular HGB Conc 34.7 g/dl (31.0-37.0); Mean Corpuscular Volume 84 fL (80-100); Monocytes # (Auto) 1.6 Thou/mm3 (0.0-0.8); Monocytes % (Auto) 11 % (0-12); Neutrophils # (Auto) 10.4 Thou/mm3 (1.8-7.7); Neutrophils % (Auto) 68 % (37-80); Nucleated Red Blood Cell % 0 /100 WBC (0); Platelet Count 415 Thou/mm3 (140-440); RDW Standard Deviation 41.6 fL (35.1-43.9); Red Blood Count 3.45 Miln/mm3 (4.50-5.90); White Blood Count 15.3 Thou/mm3 (3.8-10.6)
[2024-06-08 06:45] LABS: Alanine Aminotransferase 57 U/L (10-49); Albumin, Serum 3.1 gm/dL (3.5-5.0); Albumin/Globulin Ratio 1.1 (1.2-2.2); Alkaline Phosphatase 684 U/L (46-116); Anion Gap 9 (7-16); Aspartate Amino Transferase 48 U/L (0-34); BUN/Creatinine Ratio 13 Ratio (12-20); Bilirubin,Total 1.4 mg/dL (0.3-1.2); Blood Urea Nitrogen 9 mg/dL (9-23); Calcium 8.1 mg/dL (8.3-10.6); Calcium (Corrected) 8.8 mg/dL (8.5-10.1); Carbon Dioxide 26.5 mMol/L (20.0-31.0); Chloride 101 mMol/L (98-107); Creatinine (Component) 0.7 mg/dL (0.6-1.3); Estimated Creatinine Clearance 123.5 mL/min (>60); Globulin 2.7 gm/dL (2.3-3.5); Glucose 163 mg/dL (74-106); Magnesium 1.9 mg/dL (1.6-2.6); Osmolality,Calculated 274 (275-295); Potassium 3.5 mMol/L (3.4-5.1); Sodium 136 mMol/L (136-145); Total Protein 5.8 gm/dL (5.7-8.2); eGFR > 60 See Note
[2024-06-08] MEDS: OSELTAMIVIR 75 MG CAPSULE PO ×2 (08:22→21:50)
[2024-06-08] MEDS: POLYETHYLENE GLYCOL 17 GM PACKET PO (08:22)
[2024-06-08] MEDS: ENOXAPARIN SOD INJ 40 MG/0.4 ML SYRINGE SC (08:22)
[2024-06-08] MEDS: GABAPENTIN 300 MG CAPSULE PO (08:23)
[2024-06-08] MEDS: NICOTINE PATCH 21 MG/24 HR PATCH.TD24 TOP (08:23)
[2024-06-08] MEDS: INSULIN LISPRO (AdmeLOG) 1 UNIT/0.01 ML UNIT SC ×3 (08:25→22:35)
[2024-06-08] MEDS: INSULIN LISPRO (AdmeLOG) 1 UNIT/0.01 ML UNIT 7 UNIT SC ×3 (08:41→17:37)
[2024-06-08] MEDS: GLYCERIN, ADULT 1 EA SUPP 1 EACH PR (11:20)
--- NOTE | 2024-06-08 13:17 | PD.RESPRO ---
Documentation for date of: 06/08/24 Subjective Subjective Interval history: Iftikhar is a 49 y/o male with PMHx of insulin-dependent diabetes mellitus type 2, who comes to [facility] on 06/04/2024 for an evaluation of fever chills generalized weakness fatigue and productive cough that has been going on since last Wednesday. Patient has reported that he has been feeling like his pain started to worsen condition and decided to come get checked out. He does state that he does not have chest pain or palpitations at this time. Patient reports no recent travel, and denies any sick contacts where he lives. He does say that he has shortness of breath worse with exertion, says he has a fever. He said he uses meth, last use was Wednesday. He says he did not travel anywhere for new years. Denies history of any drug use. ED Course: Patient comes in the ED with a blood pressure of 92/62, pulse of 107, respiratory rate of 25, temperature of 99.1, satting 96% room air. His workup was found to have a white count of 34, Na 126, Lactate of 3.3, ALT of 86, ALP of 421, LDH of 367, Pro-Ranjit of 8, influenza A positive. Urinalysis showed leukocyte esterase positive, +4 for glucose, U tox positive for meth. CT abdomen/pelvis showed?left psoas possible and markedly abnormal thickening of the urinary bladder, trace pericardial thickening. Chest x-ray showed no signs of consolidation or pulmonary edema lesion. EKG showed sinus tachycardia, rate of [address] changes. Patient patient was given 2.5 NS bolus, Tylenol 1 g, ceftriaxone 1 g x 1, was started on Zosyn x 1 in the ED. Patient was PMHx: As above Surgeries: Right elbow I&D Exam Vital Signs Temp Pulse Resp BP Pulse Ox O2 Del Method O2 Flow Rate 97.9 F 90 19 153/92 H 93 L Nasal Cannula 3 06/08/24 11:58 06/08/24 11:58 06/08/24 11:58 06/08/24 11:58 06/08/24 11:58 06/08/24 11:58 06/08/24 11:58 Objective Labs 06/08/24 04:50 06/08/24 04:50 Labs: Laboratory Results - last 24 hr 06/05/24 06/07/24 06/07/24 05:08 05:57 12:41 WBC RBC Hgb Hct MCV MCH MCHC RDW Std Deviation Plt Count Neut % (Auto) Lymph % (Auto) [place] % (Auto) Eos % (Auto) Baso % (Auto) Neut # (Auto) Lymph # (Auto) [place] # (Auto) Eos # (Auto) Baso # (Auto) Immature Gran # (Auto) Absolute Nucleated RBC Immature Gran % Nucleated RBC % Sodium Potassium Chloride Carbon Dioxide Anion Gap BUN Creatinine Estim Creat Clear Calc eGFR BUN/Creatinine Ratio Glucose Estimated Ave Glu mg/dL Cancelled Hemoglobin A1c Cancelled Calculated Osmolality Calcium Corrected Calcium Phosphorus Magnesium Total Bilirubin AST ALT Alkaline Phosphatase Total Protein Albumin Globulin Albumin/Globulin Ratio Vancomycin Trough 18.3 H HIV 1&2 Antibody Rapid Non-Reactive TB Test (QFT) See Jan Rpt 06/08/24 04:50 WBC 15.3 H RBC 3.45 L Hgb 10.0 L Hct 28.8 L MCV 84 MCH 29.0 MCHC 34.7 RDW Std Deviation 41.6 Plt Count 415 D Neut % (Auto) 68 Lymph % (Auto) 9 L [place] % (Auto) 11 Eos % (Auto) 0 Baso % (Auto) 0 Neut # (Auto) 10.4 H Lymph # (Auto) 1.4 [place] # (Auto) 1.6 H Eos # (Auto) 0.1 Baso # (Auto) 0.0 Immature Gran # (Auto) 1.79 H Absolute Nucleated RBC 0.00 Immature Gran % 12 H Nucleated RBC % 0 Sodium 136 Potassium 3.5 Chloride 101 Carbon Dioxide 26.5 Anion Gap 9 BUN 9 Creatinine 0.7 Estim Creat Clear Calc 123.5 eGFR > 60 BUN/Creatinine Ratio [address] Glu mg/dL Hemoglobin A1c Calculated Osmolality 274 L Calcium 8.1 L Corrected Calcium 8.8 Phosphorus 3.0 Magnesium 1.9 Total Bilirubin 1.4 H D AST 48 H ALT 57 H Alkaline Phosphatase 684 H D Total Protein 5.8 Albumin 3.1 L Globulin 2.7 Albumin/Globulin Ratio 1.1 L Vancomycin Trough HIV 1&2 Antibody Rapid TB Test (QFT) Quality Measures Quality Measures none Assessment & Plan Assessment Current Active Medications: Generic Name Dose Route Start Last Admin Trade Name Freq PRN Reason Stop Dose Admin Acetaminophen 650 mg 06/04/24 19:42 Acetaminophen 325 Mg Tablet PO 07/04/24 19:41 Q6H PRN Fever >101.5 Hydrocodone Bitart/Acetaminophen 1 tab 06/04/24 19:42 06/08/24 06:14 Hydrocodone/Apap 5/325 Tablet PO 06/09/24 19:41 1 tab Q4HR PRN Administration PAIN SCALE 4-6 (Moderate Dextrose 25 ml 06/04/24 19:49 Dextrose 50%-Water Inj 50 Ml Syringe IV 07/04/24 19:48 Q15MIN PRN BG 50-70 responsive npo pt Dextrose 50 ml 06/04/24 19:49 Dextrose 50%-Water Inj 50 Ml Syringe IV 07/04/24 19:48 Q15MIN PRN BG <50 OR BG <70 & pt unresponsive Enoxaparin Sodium 40 mg 06/05/24 09:00 06/08/24 08:22 Enoxaparin Sod Inj 40 Mg/0.4 Ml Syringe SC 06/19/24 08:59 40 mg QDAY WARD Administration Gabapentin 300 mg 06/06/24 11:15 06/08/24 08:23 Gabapentin 300 Mg Capsule PO 07/06/24 11:14 300 mg QDAY WARD Administration Glucagon 1 mg 06/04/24 19:49 Glucagon Inj 1 Mg Vial IM Q15MIN PRN BG <70, and no IV access Guaifenesin 200 mg 06/04/24 20:53 06/07/24 04:34 Guaifenesin Syrup 200 Mg/10 Ml Udc PO 07/04/24 20:52 200 mg QID PRN Administration COUGH OR CONGESTION Protocol Sodium Chloride 1,000 mls @ 75 mls/hr 06/05/24 10:40 06/08/24 06:05 Ns IV 07/05/24 10:39 75 mls/hr .[id number] WARD Administration Ceftriaxone Sodium 2 gm/ 50 mls @ 100 mls/hr 06/07/24 09:00 06/08/24 08:24 Sodium Chloride IV 06/14/24 08:59 100 mls/hr QDAY WARD Administration Protocol Insulin Glargine 20 unit 06/07/24 21:00 06/07/24 20:53 Insulin Glargine (Lantus) 5 Unit/0.05 Ml (Per 5 Units) SC 07/07/24 20:59 20 unit HS WARD Administration Insulin Human Lispro 0 unit 06/05/24 07:30 06/08/24 11:33 Insulin Lispro (Admelog) 1 Unit/0.01 Ml Unit SC 07/05/24 07:29 Not Given AC [facility] Protocol Insulin Human Lispro 7 unit 06/08/24 08:00 06/08/24 11:20 Insulin Lispro (Admelog) 1 Unit/0.01 Ml Unit SC 07/08/24 07:59 7 unit TIDWM WARD Administration Ketorolac Tromethamine 30 mg 06/06/24 15:31 06/06/24 17:08 Ketorolac Inj 30 Mg/Ml Vial IVP 06/11/24 15:30 30 mg Q6HR PRN Administration PAIN SCALE 7-10 (Severe Lidocaine 1 patch 06/06/24 09:16 06/06/24 09:47 Lidocaine 5% 1 Patch TOP 07/06/24 09:15 1 patch DAILY PRN Administration LOCALIZED PAIN Lorazepam 1 mg 06/07/24 16:54 06/07/24 17:09 Lorazepam 0.5 Mg Tablet PO 06/12/24 16:53 1 mg Q6H PRN Administration Meth withdrawal Nicotine 21 mg 06/05/24 09:00 06/08/24 08:23 Nicotine Patch 21 Mg/24 Hr Patch.Td24 TOP 07/05/24 08:59 21 mg QDAY WARD Administration Oseltamivir Phosphate 75 mg 06/05/24 21:00 06/08/24 08:22 Oseltamivir 75 Mg Capsule PO 06/09/24 22:00 75 mg BID WARD Administration Polyethylene Glycol 17 gm 06/07/24 09:00 06/08/24 08:22 Polyethylene Glycol 17 Gm Packet PO 07/07/24 08:59 17 gm QDAY WARD Administration Sennosides 1 tab 06/06/24 09:15 06/06/24 09:47 Senna/Docusate Sod 1 Tab Tablet PO 07/06/24 09:14 1 tab QDAY PRN Administration CONSTIPATION Protocol Sennosides 1 tab 06/06/24 09:15 Senna Tablet PO 07/06/24 09:14 QDAY PRN CONSTIPATION Protocol
[2024-06-08] MEDS: TUBERCULIN PPD INJ 5 UNIT/0.1 ML DOSE ID (14:49)
--- NOTE | 2024-06-08 14:57 | ESPR_ITS ---
<Statement entered by Anna Eastman MD - 06/13/24 12:14> I reviewed above note and agree with findings and plans. I have also personally examined the patient with medicine team and went over assessment and plan with medical team including research intern and resident physician. Documentation for date of: 06/08/24 Subjective Subjective Interval history: No acute overnight events. Still has back pain which is managed with current medications. Abdominal pelvis pain seems to have improved. He is tolerating oral intake without nausea or vomiting. Although states he is constipated, we gave him a suppository x 1. Denies fever, chills, headaches, chest pain, sob, cough, GI or urinary symptoms. Exam Vital Signs Temp Pulse Resp BP Pulse Ox O2 Del Method O2 Flow Rate 97.9 F 125 H 19 153/92 H 93 L Nasal Cannula 3 06/08/24 11:58 06/08/24 12:00 06/08/24 11:58 06/08/24 11:58 06/08/24 11:58 06/08/24 11:58 06/08/24 11:58 Narrative Exam GENERAL * Normal-appearing adult male, in mild distress due to pain HEENT * NCAT.?TTEO. Oral mucosa is moist. Patent Nares NECK * Supple, nontender, no thyromegaly, no meningismus, no JVD, no step offs CHEST * RRR, no m/g/r * CTAB, no w/r/r. Symmetrical chest rise. No intercostal subcostal retraction * Atraumatic, nontender, no crepitus, symmetrical expansion. ABDOMEN * Soft, flat, nontender. No guarding/rebound tenderness/masses. * Bowel sounds presents EXTREMITIES * Nontender, no cyanosis, no edema * No edema/cyanosis.? * Positive left psoas sign. No overlying skin changes. SKIN * Warm and dry, no jaundice/rashes. NEUROMUSCULAR * No lumbar or midline, no CVA, no paraspinal muscle spasm or tenderness. * Moves all 4 extremities well, with full ROM and good CSM. * HEATH x4, CN II-XII grossly intact. * No focal neurologic deficits. PSYCHIATRY * Normal mood and affect, cooperative, no SI or HI or hallucinations. Objective Labs 06/08/24 04:50 06/08/24 04:50 Labs: Laboratory Results - last 24 hr 06/05/24 06/07/24 06/08/24 05:08 05:57 04:50 WBC 15.3 H RBC 3.45 L Hgb 10.0 L Hct 28.8 L MCV 84 MCH 29.0 MCHC 34.7 RDW Std Deviation 41.6 Plt Count 415 D Neut % (Auto) 68 Lymph % (Auto) 9 L [place] % (Auto) 11 Eos % (Auto) 0 Baso % (Auto) 0 Neut # (Auto) 10.4 H Lymph # (Auto) 1.4 [place] # (Auto) 1.6 H Eos # (Auto) 0.1 Baso # (Auto) 0.0 Immature Gran # (Auto) 1.79 H Absolute Nucleated RBC 0.00 Immature Gran % 12 H Nucleated RBC % 0 Sodium 136 Potassium 3.5 Chloride 101 Carbon Dioxide 26.5 Anion Gap 9 BUN 9 Creatinine 0.7 Estim Creat Clear Calc 123.5 eGFR > 60 BUN/Creatinine Ratio [address] Glu mg/dL Cancelled Hemoglobin A1c Cancelled Calculated Osmolality 274 L Calcium 8.1 L Corrected Calcium 8.8 Phosphorus 3.0 Magnesium 1.9 Total Bilirubin 1.4 H D AST 48 H ALT 57 H Alkaline Phosphatase 684 H D Total Protein 5.8 Albumin 3.1 L Globulin 2.7 Albumin/Globulin Ratio 1.1 L HIV 1&2 Antibody Rapid Non-Reactive TB Test (QFT) See Sep Rpt Quality Measures Quality Measures none Assessment & Plan Assessment Current Active Medications: Generic Name Dose Route Start Last Admin Trade Name Freq PRN Reason Stop Dose Admin Acetaminophen 650 mg 06/04/24 19:42 Acetaminophen 325 Mg Tablet PO 07/04/24 19:41 Q6H PRN Fever >101.5 Hydrocodone Bitart/Acetaminophen 1 tab 06/04/24 19:42 06/08/24 14:53 Hydrocodone/Apap 5/325 Tablet PO 06/09/24 19:41 1 tab Q4HR PRN Administration PAIN SCALE 4-6 (Moderate Dextrose 25 ml 06/04/24 19:49 Dextrose 50%-Water Inj 50 Ml Syringe IV 07/04/24 19:48 Q15MIN PRN BG 50-70 responsive npo pt Dextrose 50 ml 06/04/24 19:49 Dextrose 50%-Water Inj 50 Ml Syringe IV 07/04/24 19:48 Q15MIN PRN BG <50 OR BG <70 & pt unresponsive Enoxaparin Sodium 40 mg 06/05/24 09:00 06/08/24 08:22 Enoxaparin Sod Inj 40 Mg/0.4 Ml Syringe SC 06/19/24 08:59 40 mg QDAY WARD Administration Gabapentin 300 mg 06/06/24 11:15 06/08/24 08:23 Gabapentin 300 Mg Capsule PO 07/06/24 11:14 300 mg QDAY WARD Administration Glucagon 1 mg 06/04/24 19:49 Glucagon Inj 1 Mg Vial IM Q15MIN PRN BG <70, and no IV access Guaifenesin 200 mg 06/04/24 20:53 06/07/24 04:34 Guaifenesin Syrup 200 Mg/10 Ml Udc PO 07/04/24 20:52 200 mg QID PRN Administration COUGH OR CONGESTION Protocol Sodium Chloride 1,000 mls @ 75 mls/hr 06/05/24 10:40 06/08/24 06:05 Ns IV 07/05/24 10:39 75 mls/hr .[id number] WARD Administration Ceftriaxone Sodium 2 gm/ 50 mls @ 100 mls/hr 06/07/24 09:00 06/08/24 08:24 Sodium Chloride IV 06/14/24 08:59 100 mls/hr QDAY WARD Administration Protocol Insulin Glargine 20 unit 06/07/24 21:00 06/07/24 20:53 Insulin Glargine (Lantus) 5 Unit/0.05 Ml (Per 5 Units) SC 07/07/24 20:59 20 unit HS WARD Administration Insulin Human Lispro 0 unit 06/05/24 07:30 06/08/24 11:33 Insulin Lispro (Admelog) 1 Unit/0.01 Ml Unit SC 07/05/24 07:29 Not Given AC [facility] Protocol Insulin Human Lispro 7 unit 06/08/24 08:00 06/08/24 11:20 Insulin Lispro (Admelog) 1 Unit/0.01 Ml Unit SC 07/08/24 07:59 7 unit TIDWM WARD Administration Ketorolac Tromethamine 30 mg 06/06/24 15:31 06/06/24 17:08 Ketorolac Inj 30 Mg/Ml Vial IVP 06/11/24 15:30 30 mg Q6HR PRN Administration PAIN SCALE 7-10 (Severe Lidocaine 1 patch 06/06/24 09:16 06/06/24 09:47 Lidocaine 5% 1 Patch TOP 07/06/24 09:15 1 patch DAILY PRN Administration LOCALIZED PAIN Lorazepam 1 mg 06/07/24 16:54 06/07/24 17:09 Lorazepam 0.5 Mg Tablet PO 06/12/24 16:53 1 mg Q6H PRN Administration Meth withdrawal Nicotine 21 mg 06/05/24 09:00 06/08/24 08:23 Nicotine Patch 21 Mg/24 Hr Patch.Td24 TOP 07/05/24 08:59 21 mg QDAY WARD Administration Oseltamivir Phosphate 75 mg 06/05/24 21:00 06/08/24 08:22 Oseltamivir 75 Mg Capsule PO 06/09/24 22:00 75 mg BID WARD Administration Polyethylene Glycol 17 gm 06/07/24 09:00 06/08/24 08:22 Polyethylene Glycol 17 Gm Packet PO 07/07/24 08:59 17 gm QDAY WARD Administration Sennosides 1 tab 06/06/24 09:15 06/06/24 09:47 Senna/Docusate Sod 1 Tab Tablet PO 07/06/24 09:14 1 tab QDAY PRN Administration CONSTIPATION Protocol Sennosides 1 tab 06/06/24 09:15 Senna Tablet PO 07/06/24 09:14 QDAY PRN CONSTIPATION Protocol Plan In summary: 49-year-old male IDDM, presents with generalized body pain and fever x 1 week Also endorsing bitemporal headache and dizziness upon standing, dysuria x 3 weeks. He was admitted for sepsis in settings of influenza A and MSSA bacteremia. Appreciate recommendations from ID, general surgery. MSSA Bactermia Unknown source however did have left psoas infective myositis but no mention of abscess. No skin lesions, pneumonia and pending MRI spine to rule out infective causes. Blood culture again showing MSSA, we consulted cardiology who recommended MARK. ? Discontinued VANCOMYCIN pharmacy dosed (06/05 to [present]) ? Continue CEFTRIAXONE 2 mg (06/07 to [present]) ? Pending MARK Sepsis 2/2 Left Psoas infective myositis, possibly Latent TB Influenza A GPC bacteremia (as above) Presented with 3/4 SIRS tachycardia, tachypnea and leukocytosis, with source of infection GPC bacteremia, influenza A, less likely left psoas abscess. No surgical intervention from general surgery perspective. CT and MRI indicated prominent infectious process involving the psoas muscle on the left including in the pelvis, highly susp for infectious process including TB. General surgery recommended drainage, IR does not feel there is loculated fluid to be drained. Echo showed no clear vegetations, fraction 55-60%, recommended MARK for high clinical suspicion. Blood culture repeatedly showing GPC. MRSA negative. Continued on VANCOMYCIN for GPC bactermia. Will cover for MSSA with CEFTRIAXONE. Continued on TAMIFLU for influenza. Will consider MARK if symptoms worsen or do not improve. Also ordered MRI spine to rule out spinal abscess given complaints of chronic pain. Although he has a history of dorsalgia as discussed below. QuantiFERON test came back indeterminate. We have ordered a repeat QuantiFERON test along with PPD. Leukocytosis improving. Persistent tachycardic and had febrile episode of 100.9, most likely related to METH withdrawal as discussed below. ? Continue TAMIFLU 75 mg BID (06/05 to [present]) ? Discontinued VANCOMYCIN pharmacy dosed (06/05 to [present]) ? Continue CEFTRIAXONE 2 mg (06/07 to [present]) ? Continue GUAIFENESIN 200 mg QID ? Pending repeat blood culture, urine culture, QuantiFERON, PPD Cystitis UTI Patient endorsed dysuria for the past 3 weeks. We previously started CEFEPIME, METRONIDAZOLE for suspected psoas abscess which would also cover UTI. Currently asymptomatic. Urine cultures were negative, covering with CEFTRIAXONE anyways as above. ? Continue following cultures. Hyponatremia (improving) Hypochloremia Likely dehydrational. Admission sodium 129, currently 131 ? Normal saline maintenance fluids at 125 cc/hour ? Daily CMP Insulin dependent Diabetes mellitus type 2 On INSULIN GLARGINE 15 units. A1C >14 this visit. Certainly needs glycemic control to aid with infection recovery. Glucose 300 today. We increased INSULIN as below. Home medication Insulin glargine 15U SC daily ? Continue glargine 20 units SH ? Continue LISPRO 7 units TID ? INSULIN sliding scale ? Accu-Cheks ? Diabetic education Mild transaminitis In settings of sepsis. Improving. ? Daily CMP METHAMPHETAMINE withdrawal Active METH use Tobacco dependence Patient reported daily meth use since 1996, last used 2 days ago. U tox was positive. Currently experiencing withdrawal symptoms with agitation, generalized pain, tachycardia and fever. Patient has approximately [id number] smoking history. Currently smokes 1 pack a day. U-Tox positive for METHAMPHETAMINE. ? Consulted on tobacco and METH cessation ? Continue LORAZEPAM 1 mg q.6h. PRN ? Continue NICOTINE patch 21 mg daily Hx of Dorsalgia Complains of chronic low back pain. MRI thoracic spine showed thoracic disc bulging, without significant impingement upon thoracic cord. Patient refused lumbar MRI due to back pain. We ordered repeat MRI. Will give DILAUDID x 1 prior to MRI. ? Continue LIDOCAINE patches daily ? Continue home GABAPENTIN 300 mg daily ? Pending MRI thoracic/lumbar to rule out abscess or infection as discussed above. Constipation No bowel movement since admission. ? Added bowel regimen Health maintenance Diet: NPO for MARK 06/08. CHO consistent GI prophylaxis: PROTONIX DVT prophylaxis: LOVENOX Antibiotics: CTX, TAMIFLU CODE STATUS: Full code Disposition: Pending blood cultures Patient case was discussed with attending, Dr. Anna Eastman MD and senior residents Dr. Bauer and Dr. Howell. Linnea Swann, DO PGYI Senior Resident Attestation: The patient is a 49-year-old male with uncontrolled diabetes mellitus, presented with generalized body pain and fever for 1 week and was found to have MSSA bacteremia likely secondary to sepsis secondary to left psoas infective myositis. The patient reported that he continues to have lower back pain. His vitals were fairly stable saturating 94 to 95% on 3 L NC. White count mildly trended down to 15.3. Blood culture again significant for GPC. As the patient's blood sugar has been trending down in 110s, we decreased insulin glargine from 20 unit at bedtime to 18 units at bedtime, insulin lispro 7 units 3 times daily with meals to 5 units 3 times daily with meals, and SSI lispro moderate scale 2 sensitive scale. MARK was ordered to rule out any valvular vegetations. In the meantime, we will continue with ceftriaxone 2 g daily. Vancomycin was discontinued. Tuberculin PPD test was ordered to rule out any latent tuberculosis. The patient seems to be having methamphetamine withdrawal, and is on as needed lorazepam 1 mg every 6 hourly as needed. And we will continue with his other home medications. I discussed with and supervised the research intern physician involved in the care of this patient. I personally saw and examined the patient and discussed the assessment and plan with the entire medicine team, including my attending. I agree with the assessment and plan as documented above. Piotr Howell MD PGY2 Internal Medicine
--- NOTE | 2024-06-08 17:04 | ESCONSULT_ITS ---
HPI Data of Consult Requesting Physician: Anna Eastman MD Admitting Provider: Paresh Guzman MD Attending Provider: Anna Eastman MD Primary Care Provider: Christiano Curran MD Consult Narrative History of present illness: Iftikhar is a 49 y/o male with PMHx of insulin-dependent diabetes mellitus type 2, who comes to [facility] on 06/04/2024 for an evaluation of fever chills generalized weakness fatigue and productive cough that has been going on since last Wednesday. Patient has reported that he has been feeling like his pain started to worsen condition and decided to come get checked out. He does state that he does not have chest pain or palpitations at this time. Patient reports no recent travel, and denies any sick contacts where he lives. He does say that he has shortness of breath worse with exertion, says he has a fever. He said he uses meth, last use was Wednesday. He says he did not travel anywhere for new years. Denies history of any drug use. ED Course: Patient comes in the ED with a blood pressure of 92/62, pulse of 107, respiratory rate of 25, temperature of 99.1, satting 96% room air. His workup was found to have a white count of 34, Na 126, Lactate of 3.3, ALT of 86, ALP of 421, LDH of 367, Pro-Ranjit of 8, influenza A positive. Urinalysis showed leukocyte esterase positive, +4 for glucose, U tox positive for meth. CT abdomen/pelvis showed?left psoas possible and markedly abnormal thickening of the urinary bladder, trace pericardial thickening. Chest x-ray showed no signs of consolidation or pulmonary edema lesion. EKG showed sinus tachycardia, rate of [address] changes. Patient patient was given 2.5 NS bolus, Tylenol 1 g, ceftriaxone 1 g x 1, was started on Zosyn x 1 in the ED. Patient was PMHx: As above Surgeries: Right I&D of right olcreanon bursa Meds: Insulin, Janumet, naproxen, gabapentin Allergies: No known allergies Family history: His aunt had heart stents, mother has diabetes, no other heart disease in family Social history: Pneumonia raise message above [place]. Lives with his mother currently. 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 Says he used to drink caffeine in the past, has 4 DUIs, has been smoking about a pack of cigarettes since he is 18. Has history of meth use, last used was this Wednesday. He also denies IV drug use. cc:: cc: Anna Eastman MD Review of Systems Review of Systems Narrative Review of Systems: 12 point ROS reviewed and is otherwise negative unless stated directly in the HPI Exam Vital Signs Temp Pulse Resp BP Pulse Ox O2 Del Method O2 Flow Rate 97.9 F 84 19 160/72 H 93 L Nasal Cannula 3 06/08/24 16:00 06/08/24 16:00 06/08/24 16:00 06/08/24 16:00 06/08/24 16:00 06/08/24 16:00 06/08/24 16:00 Narrative Exam General: AAOx3, NAD, male lying in bed HEENT: Moist mucous membranes, conjunctiva clear, EOMI, pin point pupils Cardiovascular: systolic murmur heard, radial pulses +2 bilat, tachycardic Pulmonary: CTAB bilat no cough, no wheezing GI: No tenderness to light or deep palpitation, no guarding, rigidity, rebound tenderness or distension Extremities: No presence of trace or pitting edema in lower extremities bilaterally, dorsalis pedis pulses +2 bilaterally, R olcranenon presence of scab however not actively draining Neuro: AAOx3, no focal motor or sensory deficits in the UE or LE bilat Psych: Cooperative. Results Labs 06/09/24 04:31 06/09/24 04:31 Labs: Short CBC 06/08/24 Range/Units 04:50 WBC 15.3 H (3.8-10.6) Thou/mm3 Hgb 10.0 L (13.5-16.0) g/dL Hct 28.8 L (41.0-53.0) % Plt Count 415 D (140-440) Thou/mm3 BMP 06/08/24 04:50 Sodium 136 Potassium 3.5 Chloride 101 Carbon Dioxide 26.5 BUN 9 Creatinine 0.7 Glucose 163 H D Calcium 8.1 L Liver Function 06/08/24 Range/Units 04:50 Total Bilirubin 1.4 H D (0.3-1.2) mg/dL AST 48 H (0-34) U/L ALT 57 H (10-49) U/L Alkaline Phosphatase 684 H D (46-116) U/L Albumin 3.1 L (3.5-5.0) gm/dL Quality Measures Quality Measures none Medications Home Medications and Allergies Allergies Allergy/AdvReac Type Severity Reaction Status Date / Time No Known Allergies Allergy Unverified 06/04/24 14:42 Visit Medications Acetaminophen (Acetaminophen 325 Mg Tablet) 650 mg PO Q6H PRN PRN Reason: Fever >101.5 Stop: 07/04/24 19:41 Hydrocodone Bitart/Acetaminophen (Hydrocodone/Apap 5/325 Tablet) 1 tab PO Q4HR PRN PRN Reason: PAIN SCALE 4-6 (Moderate Stop: 06/09/24 19:41 Last Admin: 06/08/24 14:53 Dose: 1 tab Dextrose (Dextrose 50%-Water Inj 50 Ml Syringe) 25 ml IV Q15MIN PRN PRN Reason: BG 50-70 responsive npo pt Stop: 07/04/24 19:48 Dextrose (Dextrose 50%-Water Inj 50 Ml Syringe) 50 ml IV Q15MIN PRN PRN Reason: BG <50 OR BG <70 & pt unresponsive Stop: 07/04/24 19:48 Enoxaparin Sodium (Enoxaparin Sod Inj 40 Mg/0.4 Ml Syringe) 40 mg SC QDAY [facility] Stop: 06/19/24 08:59 Last Admin: 06/08/24 08:22 Dose: 40 mg Gabapentin (Gabapentin 300 Mg Capsule) 300 mg PO QDAY [facility] Stop: 07/06/24 11:14 Last Admin: 06/08/24 08:23 Dose: 300 mg Glucagon (Glucagon Inj 1 Mg Vial) 1 mg IM Q15MIN PRN PRN Reason: BG <70, and no IV access Guaifenesin (Guaifenesin Syrup 200 Mg/10 Ml Udc) 200 mg PO QID PRN; Protocol PRN Reason: COUGH OR CONGESTION Stop: 07/04/24 20:52 Last Admin: 06/07/24 04:34 Dose: 200 mg Sodium Chloride (Ns) 1,000 mls @ 75 mls/hr IV .[id number] [facility] Stop: 07/05/24 10:39 Last Admin: 06/08/24 06:05 Dose: 75 mls/hr Ceftriaxone Sodium 2 gm/ (Sodium Chloride) 50 mls @ 100 mls/hr IV QDAY [facility]; Protocol Stop: 06/14/24 08:59 Last Admin: 06/08/24 08:24 Dose: 100 mls/hr Insulin Glargine (Insulin Glargine (Lantus) 5 Unit/0.05 Ml (Per 5 Units)) 20 unit SC HS [facility] Stop: 07/07/24 20:59 Last Admin: 06/07/24 20:53 Dose: 20 unit Insulin Human Lispro (Insulin Lispro (Admelog) 1 Unit/0.01 Ml Unit) 0 unit SC AC [facility]; Protocol Stop: 07/05/24 07:29 Last Admin: 06/08/24 11:33 Dose: Not Given Insulin Human Lispro (Insulin Lispro (Admelog) 1 Unit/0.01 Ml Unit) 7 unit SC TIDWM [facility] Stop: 07/08/24 07:59 Last Admin: 06/08/24 11:20 Dose: 7 unit Ketorolac Tromethamine (Ketorolac Inj 30 Mg/Ml Vial) 30 mg IVP Q6HR PRN PRN Reason: PAIN SCALE 7-10 (Severe Stop: 06/11/24 15:30 Last Admin: 06/06/24 17:08 Dose: 30 mg Lidocaine (Lidocaine 5% 1 Patch) 1 patch TOP DAILY [facility] Stop: 07/09/24 08:59 Lorazepam (Lorazepam 0.5 Mg Tablet) 1 mg PO Q6H PRN PRN Reason: Meth withdrawal Stop: 06/12/24 16:53 Last Admin: 06/07/24 17:09 Dose: 1 mg Nicotine (Nicotine Patch 21 Mg/24 Hr Patch.Td24) 21 mg TOP QDAY [facility] Stop: 07/05/24 08:59 Last Admin: 06/08/24 08:23 Dose: 21 mg Oseltamivir Phosphate (Oseltamivir 75 Mg Capsule) 75 mg PO BID [facility] Stop: 06/09/24 22:00 Last Admin: 06/08/24 08:22 Dose: 75 mg Polyethylene Glycol (Polyethylene Glycol 17 Gm Packet) 17 gm PO QDAY [facility] Stop: 07/07/24 08:59 Last Admin: 06/08/24 08:22 Dose: 17 gm Sennosides (Senna/Docusate Sod 1 Tab Tablet) 1 tab PO QDAY PRN; Protocol PRN Reason: CONSTIPATION Stop: 07/06/24 09:14 Last Admin: 06/06/24 09:47 Dose: 1 tab Sennosides (Senna Tablet) 1 tab PO QDAY PRN; Protocol PRN Reason: CONSTIPATION Stop: 07/06/24 09:14 Discontinued Medications Acetaminophen (Acetaminophen 500 Mg Tablet) 1,000 mg PO X1 ONE Stop: 06/04/24 16:45 Last Admin: 06/04/24 17:34 Dose: 1,000 mg Glycerin (Glycerin, Adult 1 Ea Supp) 1 each [place] X1 ONE Stop: 06/08/24 09:07 Last Admin: 06/08/24 11:20 Dose: 1 each Hydromorphone HCl (Hydromorphone Hcl 2 Mg Tablet) 0.5 mg PO X1 ONE Stop: 06/08/24 15:30 Sodium Chloride (Ns) 1,000 mls @ 999 mls/hr IV .Q1H1M ONE Stop: 06/04/24 17:43 Last Infusion: 06/04/24 18:23 Dose: Infused Sodium Chloride (Ns) 1,000 mls @ 999 mls/hr IV .Q1H1M ONE Stop: 06/04/24 17:43 Last Infusion: 06/04/24 18:23 Dose: Infused Sodium Chloride (Ns) 500 mls @ 999 mls/hr IV .Q31M ONE Stop: 06/04/24 17:40 Last Infusion: 06/04/24 18:23 Dose: Infused Ceftriaxone Sodium/Dextrose (Rocephin/D5w 1gm Iv Premix) 50 mls @ 100 mls/hr IV X1 ONE Stop: 06/04/24 17:39 Last Infusion: 06/04/24 18:23 Dose: Infused Piperacillin Sod/Tazobactam (Sod 3.375 gm/ Sodium Chloride) 50 mls @ 100 mls/hr IV X1 ONE Stop: 06/04/24 19:41 Last Infusion: 06/04/24 20:10 Dose: Infused Sodium Chloride (Ns) 1,000 mls @ 125 mls/hr IV .Q8H [facility] Stop: 07/04/24 19:44 Last Infusion: 06/05/24 12:39 Dose: Infused Piperacillin/Tazobactam/Dextrose (Zosyn) 3.375 gm in 50 mls @ 12.5 mls/hr IV Q8HR [facility] Stop: 06/12/24 05:59 Last Infusion: 06/05/24 09:41 Dose: Infused Doxycycline Hyclate 100 mg/ (Sodium Chloride) 100 mls @ 100 mls/hr IV BID [facility] Stop: 06/11/24 20:59 Last Infusion: 06/04/24 21:56 Dose: Infused Cefepime HCl 2 gm/ Sodium (Chloride) 50 mls @ 100 mls/hr IV TID [facility] Stop: 06/12/24 13:59 Metronidazole (Flagyl 500 Mg Iv) 500 mg in 100 mls @ 200 mls/hr IV Q8HR [facility] Stop: 06/12/24 07:27 Last Infusion: 06/05/24 08:23 Dose: Infused Vancomycin/Sodium Chloride (Vancomycin/Ns 1 Gm Ivpb) 200 mls @ 120 mls/hr IV Q8HR [facility]; Protocol Stop: 06/06/24 10:00 Last Admin: 06/06/24 07:22 Dose: 120 mls/hr Vancomycin HCl (Vancomycin/Water 1250 Mg Ivpb) 250 mls @ 120 mls/hr IV Q8HR [facility] Stop: 06/13/24 13:59 Last Admin: 06/07/24 05:55 Dose: 120 mls/hr Vancomycin/Sodium Chloride (Vancomycin/Ns 1 Gm Ivpb) 200 mls @ 120 mls/hr IV Q8HR [facility]; Protocol Stop: 06/14/24 13:59 Last Admin: 06/08/24 06:05 Dose: 120 mls/hr Insulin Glargine (Insulin Glargine (Lantus) 5 Unit/0.05 Ml (Per 5 Units)) 10 unit SC QDAY [facility] Stop: 07/05/24 08:59 Insulin Glargine (Insulin Glargine (Lantus) 5 Unit/0.05 Ml (Per 5 Units)) 15 unit SC QDAY [facility] Stop: 07/05/24 08:59 Last Admin: 06/05/24 09:53 Dose: 15 unit Insulin Glargine (Insulin Glargine (Lantus) 5 Unit/0.05 Ml (Per 5 Units)) 15 unit SC HS [facility] Stop: 07/06/24 20:59 Last Admin: 06/06/24 21:00 Dose: 15 unit Insulin Glargine (Insulin Glargine (Lantus) 5 Unit/0.05 Ml (Per 5 Units)) 25 unit SC HS [facility] Stop: 07/07/24 20:59 Insulin Human Lispro (Insulin Lispro (Admelog) 1 Unit/0.01 Ml Unit) 5 unit SC X1 ONE Stop: 06/04/24 22:55 Last Admin: 06/04/24 23:07 Dose: 5 unit Insulin Human Lispro (Insulin Lispro (Admelog) 1 Unit/0.01 Ml Unit) 7 unit SC TIDWM [facility] Stop: 07/05/24 11:59 Last Admin: 06/07/24 07:35 Dose: 7 unit Insulin Human Lispro (Insulin Lispro (Admelog) 1 Unit/0.01 Ml Unit) 5 unit SC X1 ONE Stop: 06/05/24 08:20 Last Admin: 06/05/24 09:53 Dose: 5 unit Insulin Human Lispro (Insulin Lispro (Admelog) 1 Unit/0.01 Ml Unit) 10 unit SC TIDWM [facility] Stop: 07/07/24 11:59 Last Admin: 06/07/24 17:18 Dose: Not Given Lactulose (Lactulose Syrup 20 Gm/30 Ml Udc) 20 gm PO X1 ONE; Protocol Stop: 06/07/24 17:48 Last Admin: 06/07/24 18:14 Dose: 20 gm Lidocaine (Lidocaine 5% 1 Patch) 1 patch TOP DAILY PRN PRN Reason: LOCALIZED PAIN Stop: 07/06/24 09:15 Last Admin: 06/06/24 09:47 Dose: 1 patch Lidocaine (Lidocaine 5% 1 Patch) 1 patch TOP X1 ONE Stop: 06/08/24 15:30 Oseltamivir Phosphate (Oseltamivir 75 Mg Capsule) 75 mg PO BID [facility] Stop: 06/11/24 20:59 Last Admin: 06/05/24 09:52 Dose: 75 mg Pharmacy Consult (Vancomycin Pharmacy To Dose 1 Each Each) 1 each IV QDAY [facility] Stop: 07/05/24 08:59 Pharmacy Consult (Vancomycin Pharmacy To Dose 1 Each Each) 1 each IV QDAY@0800 PRN PRN Reason: CONSULT Stop: 07/05/24 07:59 Potassium Phos/Sodium Phos (N[facility] 1 Packet (1.5 Gm)) 1 packet PO X1 ONE Stop: 06/07/24 08:28 Last Admin: 06/07/24 08:57 Dose: 1 packet Potassium Phos/Sodium Phos (Naph,[facility] 1 Packet (1.5 Gm)) 1 packet PO X1 ONE Stop: 06/07/24 08:28 Last Admin: 06/07/24 08:57 Dose: 1 packet Tuberculin PPD (Tuberculin Ppd Inj 5 Unit/0.1 Ml Dose) 5 unit ID X1 ONE Stop: 06/08/24 13:32 Last Admin: 06/08/24 14:49 Dose: 5 unit Assessment & Plan Plan Assessment 49-year-old male IDDM, presents with generalized body pain and fever x 1 week Also endorsing bitemporal headache and dizziness upon standing, dysuria x 3 weeks. He was admitted for sepsis in settings of influenza A and MSSA bacteremia, will undergo MARK. MSSA Bactermia Unknown source however did have left psoas infective myositis but no mention of abscess. No skin lesions, pneumonia and pending MRI spine to rule out infective causes. Blood culture again showing MSSA, we consulted cardiology who recommended MARK Patient denies history of IV drug N will need to rule out vegetations with a MARK. He BC 2/2 bottles MSSA Patient denies any kind of swallowing problems or any kind of esophageal interventions or previous surgeries. Patient denies any kind of gastric ulcers bleeding and any other hematemesis or hematochezia. Patient denies any issues with anesthesia previously. Patient explained all the risks, benefits and alternatives of MARK including the risk of perforation, bleeding, respiratory failure secondary to sedation, injury to teeth gums esophagus and stomach. Patient understands all risks and benefits and provided consent for the procedure. We will keep him n.p.o. overnight and plan for MARK in the morning. Plan: ? Discontinued VANCOMYCIN pharmacy dosed (06/05 to [present]) ? Continue CEFTRIAXONE 2 mg (06/07 to [present]) ? MARK tomorrow, NPO at midni.ght Hyponatremia (improving) Hypochloremia Likely dehydrational. Admission sodium 129, currently 131 Plan: ? Normal saline maintenance fluids at 125 cc/hour ? 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 Daiana Moore, PGY-1 Attending Provider Attestation/Addendum I have personally seen and examined the patient separately on the above date of service and discussed the plan of care with the resident. I reviewed the resident Dr. Enrique consultation progress note and agree with the resident findings and plan in the note above and have also edited the documentation to reflect my findings and plan. Grady Ahmadi M.D. Interventional Cardiology
[2024-06-08] MEDS: LIDOCAINE 5% 1 PATCH TOP (17:32)
[2024-06-08] MEDS: INSULIN GLARGINE (Lantus) 5 UNIT/0.05 ML (PER 5 UNITS) 18 UNIT SC (21:51)
[2024-06-09] VITALS (18 sets, daily range): BP systolic 109–138; BP diastolic 68–88; PULSE 100–125; RESP 12–24; TEMP 35.7–38.3; O2SAT 91–95
--- NOTE | 2024-06-09 | XR_ITS ---
Examination: MRI lumbar spine, without intravenous contrast. MRI lumbar spine , with intravenous contrast. Exam date and time: June 09, 2024 1547 hrs. Indications: Lower back pain beginning one week ago. MR and CT examinations this week prominent infectious process involving the psoas muscle left extending into the pelvis Technique: Multiple axial, sagittal and coronal images of the lumbar spine have been obtained with the Siemens high-resolution 1.5 Mana MRI scanner. Images obtained included T2 weighted fat suppressed sagittal sections, TR 3500, TE 46, T2 weighted coronal fat suppressed images, TR 3050, TE 84, T2-weighted transverse fat suppressed images, TR 30-60, TE 63, proton density transverse images, TR 4720, TE 46, and T1 weighted coronal images, TR 560, TE 13. Axial, sagittal and coronal images are obtained post intravenous injection 15 cc gadolinium. Findings: Precontrast images demonstrate heterogeneous signal involving the L3 and L4 vertebral bodies Moderate disc narrowing L2-L3, L3-L4 L4-L5 5 mm central lumbar disc bulge L3-L4 5 mm central lumbar disc bulge Postcontrast images demonstrate abnormal heterogeneous enhancement involving the L4 and L3 vertebral bodies which extends into the left psoas muscle There is minimal epidural enhancement posterior to L3 and L4 as well as L5 measuring up to 3 mm Impression: Osteomyelitis involving the L3 and L4 vertebral bodies Minimal posterior epidural enhancement at the L3, L4 and L5 levels, consider early epidural abscess
[2024-06-09 05:50] LABS: Quantiferon-TB* See Sep Rpt
[2024-06-09] MEDS: HYDROcodone/APAP 5/325 TABLET 1 TAB PO ×2 (06:00→13:50)
[2024-06-09 06:01] LABS: Basophils # (Auto) 0.1 Thou/mm3 (0.0-0.2); Basophils % (Auto) 1 % (0-2.5); Eosinophils # (Auto) 0.1 Thou/mm3 (0.0-0.5); Eosinophils % (Auto) 0 % (0-10); Hematocrit 28.8 % (41.0-53.0); Hemoglobin 10.2 g/dL (13.5-16.0); Immature Granulocytes % (Auto) 13 % (0-0); Immature Granulocytes Auto 2.45 Thou/mm3 (0.00-0.00); Lymphocytes # (Auto) 1.6 Thou/mm3 (1.0-4.8); Lymphocytes % (Auto) 9 % (10-50); Mean Corpuscular HGB Conc 35.4 g/dl (31.0-37.0); Mean Corpuscular Hemoglobin 29.4 pg (25.0-35.0); Mean Corpuscular Volume 83 fL (80-100); Monocytes # (Auto) 1.5 Thou/mm3 (0.0-0.8); Monocytes % (Auto) 8 % (0-12); Neutrophils # (Auto) 12.8 Thou/mm3 (1.8-7.7); Neutrophils % (Auto) 69 % (37-80); Nucleated Red Blood Cell # 0.02 Thou/mm3 (0.00-0.00); Nucleated Red Blood Cell % 0 /100 WBC (0); Platelet Count 450 Thou/mm3 (140-440); RDW Standard Deviation 40.9 fL (35.1-43.9); Red Blood Count 3.47 Miln/mm3 (4.50-5.90); White Blood Count 18.6 Thou/mm3 (3.8-10.6)
[2024-06-09 06:43] LABS: Alanine Aminotransferase 65 U/L (10-49); Albumin, Serum 3.1 gm/dL (3.5-5.0); Albumin/Globulin Ratio 1.1 (1.2-2.2); Alkaline Phosphatase 709 U/L (46-116); Anion Gap 10 (7-16); Aspartate Amino Transferase 80 U/L (0-34); BUN/Creatinine Ratio 11 Ratio (12-20); Bilirubin,Total 1.4 mg/dL (0.3-1.2); Blood Urea Nitrogen 8 mg/dL (9-23); Calcium 8.3 mg/dL (8.3-10.6); Carbon Dioxide 24.4 mMol/L (20.0-31.0); Chloride 100 mMol/L (98-107); Creatinine (Component) 0.7 mg/dL (0.6-1.3); Estimated Creatinine Clearance 123.5 mL/min (>60); Globulin 2.9 gm/dL (2.3-3.5); Glucose 154 mg/dL (74-106); Magnesium 1.6 mg/dL (1.6-2.6); Osmolality,Calculated 269 (275-295); Phosphorous 2.8 mg/dL (2.4-5.1); Potassium 3.7 mMol/L (3.4-5.1); Sodium 134 mMol/L (136-145); eGFR > 60 See Note
--- NOTE | 2024-06-09 08:22 | PD.IDPROG ---
Subjective Subjective Interval history: an indeterminant qtf does not mean almost positive but rather that test did not work. so repeat it Exam Vital Signs Temp Pulse Resp BP Pulse Ox O2 Del Method O2 Flow Rate 98.3 F 112 H 18 138/86 H 93 L Nasal Cannula 3 06/09/24 04:00 06/09/24 04:00 06/09/24 04:00 06/09/24 04:00 06/09/24 04:00 06/09/24 04:00 06/09/24 04:00 Narrative Exam limited eval today Objective - Internal Medicine Labs 06/09/24 04:31 06/09/24 04:31 Labs: Laboratory Results - last 24 hr 06/09/24 04:31 WBC 18.6 H RBC 3.47 L Hgb 10.2 L Hct 28.8 L MCV 83 MCH 29.4 MCHC 35.4 RDW Std Deviation 40.9 Plt Count 450 H D Neut % (Auto) 69 Lymph % (Auto) 9 L Cobb % (Auto) 8 Eos % (Auto) 0 Baso % (Auto) 1 Neut # (Auto) 12.8 H Lymph # (Auto) 1.6 Cobb # (Auto) 1.5 H Eos # (Auto) 0.1 Baso # (Auto) 0.1 Immature Gran # (Auto) 2.45 H Absolute Nucleated RBC 0.02 H Immature Gran % 13 H Nucleated RBC % 0 Sodium 134 L Potassium 3.7 Chloride 100 Carbon Dioxide 24.4 Anion Gap 10 BUN 8 L Creatinine 0.7 Estim Creat Clear Calc 123.5 eGFR > 60 BUN/Creatinine Ratio 11 L Glucose 154 H Calculated Osmolality 269 L Calcium 8.3 Corrected Calcium 9.0 Phosphorus 2.8 Magnesium 1.6 Total Bilirubin 1.4 H AST 80 H ALT 65 H Alkaline Phosphatase 709 H D Total Protein 6.0 Albumin 3.1 L Globulin 2.9 Albumin/Globulin Ratio 1.1 L Assessment & Plan A&P Narrative bacteremia. mssa bc pos 06/05 and 06/07 hx of pos flu but do not see pos test in labs. dm II, a1c hx of psoas syndrome and L testicular orchitis with varicocele prior hiv and hep c neg in october 2023 appears to be bc pos on f/u 06/07. TT echo also neg usually we give ancef for os x staph in the short run but rocephin likely to work senior care. I may check in Wednesday am, please get heather please with more bc pos, but source likely pulmonary with hx Time Spent With Patient Time: Total time spent is greater than 50% in coordination of care (as documented) at patient's floor/unit and/or counseling patient:
[2024-06-09] MEDS: POLYETHYLENE GLYCOL 17 GM PACKET PO (09:25)
[2024-06-09] MEDS: ENOXAPARIN SOD INJ 40 MG/0.4 ML SYRINGE SC (09:25)
[2024-06-09] MEDS: OSELTAMIVIR 75 MG CAPSULE PO ×2 (09:25→20:09)
[2024-06-09] MEDS: GABAPENTIN 300 MG CAPSULE PO (09:25)
[2024-06-09] MEDS: POTASSIUM CHLORIDE 20 mEq TABCR 40 MEQ PO (09:25)
[2024-06-09] MEDS: LIDOCAINE 5% 1 PATCH TOP (09:26)
[2024-06-09] MEDS: Magnesium Sulfate 4 GM Ivpb 4 GM/50 ML BAG IV (09:31)
--- NOTE | 2024-06-09 09:49 | ECHO_ITS ---
Transesophageal Echo Report Ht (in): 68 Wt (lb): 167 Exam Location: Echo Lab Status: Inpatient Division Service Manager: Virginia Olivarez Indications: Procedure Performed: BP: 109 / 68 HR: 99 Contrast: Agitated Saline Rhythm: Tachycardia Technical Quality: Fair Total Dose(mL): Medications The patient is medicated with 3.5mg of intraveous Versed and 75mcg of intravenous Fentanyl. Complications There are no complications prior to, during or in recovery from the transesophageal echocardiogram. FINDINGS Left Ventricle Normal left ventricular size, wall thickness, systolic function with no obvious regional wall motion abnormalities. The ejection fraction is visually estimated at 55-60 %. Right Ventricle The right ventricle is normal in size and systolic function. Left Atrium The left atrium is normal. Right Atrium The right atrium is normal. Atrial Appendages The left atrial appendage appears normal with no evidence for thrombus. Atrial Septum The interatrial septum appears normal with no evidence of a shunt. Aorta The aorta is normal. Mitral Valve The mitral valve is normal. There is trace mitral valve regurgitation. Aortic Valve The aortic valve is trileaflet and normal. There is no significant aortic valve regurgitation. Tricuspid Valve The tricuspid valve is normal. There is mild tricuspid valve regurgitation. Pulmonic Valve The pulmonic valve is normal. There is trace pulmonic valve regurgitation. Vessels The pulmonary artery appears normal. The inferior vena cava pulmonary and hepatic veins appear emperatriz l. Pericardium The pericardium is normal by two-dimensional imaging. There is trivial to small pericardial effusi on, near the RA/RV. CONCLUSIONS Indication: Sepsis, bacteremia - r/o Endocarditis No evidence of any valvular vegetations or any endocarditis Normal LV size and function. Estimated EF 55-60% Normal RV size and function Trace MR., PI. Mild TR. There is anterior trivial to small pericardial effusion, near the RA/RV. Grady Ahmadi (Electronically Signed) Final Date: 09 June 2024 21:28
--- NOTE | 2024-06-09 10:24 | PD.RESPRO ---
Documentation for date of: 06/09/24 Subjective Subjective Interval history: 06/09/2024: Patient examined at bedside today. Patient remains to be tachycardic in the 100 seen on telemetry. Patient says he is feeling worse today, but still agreeable to getting his procedure done today. Send experiencing any active chest pain at this time. His BUN/creatinine 8 and 0.7 respectively, potassium 3.7 and magnesium 1.6 repleted by primary team. Hemoglobin is at 10.2. Continue with Rocephin and Tamiflu. Patient to get MARK today. No fever spikes overnight. No other complaints at this time Exam Vital Signs Temp Pulse Resp BP Pulse Ox O2 Del Method O2 Flow Rate 98.3 F 112 H 18 138/86 H 93 L Nasal Cannula 3 06/09/24 04:00 06/09/24 04:00 06/09/24 04:00 06/09/24 04:00 06/09/24 04:00 06/09/24 04:00 06/09/24 04:00 Narrative Exam General: AAOx3, NAD, male lying in bed HEENT: Moist mucous membranes, conjunctiva clear, EOMI, pin point pupils Cardiovascular: systolic murmur heard, radial pulses +2 bilat, tachycardic Pulmonary: CTAB bilat no cough, no wheezing GI: No tenderness to light or deep palpitation, no guarding, rigidity, rebound tenderness or distension Extremities: No presence of trace or pitting edema in lower extremities bilaterally, dorsalis pedis pulses +2 bilaterally, R olcranenon presence of scab however not actively draining Neuro: AAOx3, no focal motor or sensory deficits in the UE or LE bilat Psych: Cooperative. Objective Labs 06/09/24 04:31 06/09/24 04:31 Labs: Laboratory Results - last 24 hr 06/09/24 04:31 WBC 18.6 H RBC 3.47 L Hgb 10.2 L Hct 28.8 L MCV 83 MCH 29.4 MCHC 35.4 RDW Std Deviation 40.9 Plt Count 450 H D Neut % (Auto) 69 Lymph % (Auto) 9 L [place] % (Auto) 8 Eos % (Auto) 0 Baso % (Auto) 1 Neut # (Auto) 12.8 H Lymph # (Auto) 1.6 [place] # (Auto) 1.5 H Eos # (Auto) 0.1 Baso # (Auto) 0.1 Immature Gran # (Auto) 2.45 H Absolute Nucleated RBC 0.02 H Immature Gran % 13 H Nucleated RBC % 0 Sodium 134 L Potassium 3.7 Chloride 100 Carbon Dioxide 24.4 Anion Gap 10 BUN 8 L Creatinine 0.7 Estim Creat Clear Calc 123.5 eGFR > 60 BUN/Creatinine Ratio 11 L Glucose 154 H Calculated Osmolality 269 L Calcium 8.3 Corrected Calcium 9.0 Phosphorus 2.8 Magnesium 1.6 Total Bilirubin 1.4 H AST 80 H ALT 65 H Alkaline Phosphatase 709 H D Total Protein 6.0 Albumin 3.1 L Globulin 2.9 Albumin/Globulin Ratio 1.1 L Quality Measures Quality Measures none Assessment & Plan Assessment Current Active Medications: Generic Name Dose Route Start Last Admin Trade Name Freq PRN Reason Stop Dose Admin Acetaminophen 650 mg 06/04/24 19:42 Acetaminophen 325 Mg Tablet PO 07/04/24 19:41 Q6H PRN Fever >101.5 Hydrocodone Bitart/Acetaminophen 1 tab 06/04/24 19:42 06/09/24 06:00 Hydrocodone/Apap 5/325 Tablet PO 06/09/24 19:41 1 tab Q4HR PRN Administration PAIN SCALE 4-6 (Moderate Dextrose 25 ml 06/04/24 19:49 Dextrose 50%-Water Inj 50 Ml Syringe IV 07/04/24 19:48 Q15MIN PRN BG 50-70 responsive npo pt Dextrose 50 ml 06/04/24 19:49 Dextrose 50%-Water Inj 50 Ml Syringe IV 07/04/24 19:48 Q15MIN PRN BG <50 OR BG <70 & pt unresponsive Enoxaparin Sodium 40 mg 06/05/24 09:00 06/09/24 09:25 Enoxaparin Sod Inj 40 Mg/0.4 Ml Syringe SC 06/19/24 08:59 40 mg QDAY WARD Administration Gabapentin 300 mg 06/06/24 11:15 06/09/24 09:25 Gabapentin 300 Mg Capsule PO 07/06/24 11:14 300 mg QDAY WARD Administration Glucagon 1 mg 06/04/24 19:49 Glucagon Inj 1 Mg Vial IM Q15MIN PRN BG <70, and no IV access Guaifenesin 200 mg 06/04/24 20:53 06/07/24 04:34 Guaifenesin Syrup 200 Mg/10 Ml Udc PO 07/04/24 20:52 200 mg QID PRN Administration COUGH OR CONGESTION Protocol Sodium Chloride 1,000 mls @ 75 mls/hr 06/05/24 10:40 06/08/24 22:35 Ns IV 07/05/24 10:39 75 mls/hr .[id number] WARD Administration Ceftriaxone Sodium 2 gm/ 50 mls @ 100 mls/hr 06/07/24 09:00 06/09/24 09:25 Sodium Chloride IV 06/14/24 08:59 100 mls/hr QDAY WARD Administration Protocol Magnesium Sulfate 4 gm in 50 mls @ 12.5 mls/hr 06/09/24 07:51 06/09/24 09:31 Magnesium Sulfate Ivpb IV 06/09/24 11:50 12.5 mls/hr X1 ONE Administration Insulin Glargine 18 unit 06/08/24 21:00 06/08/24 21:51 Insulin Glargine (Lantus) 5 Unit/0.05 Ml (Per 5 Units) SC 07/08/24 20:59 18 unit HS WARD Administration Insulin Human Lispro 5 unit 06/09/24 08:00 06/09/24 07:52 Insulin Lispro (Admelog) 1 Unit/0.01 Ml Unit SC 07/09/24 07:59 Not Given TIDWM [facility] Insulin Human Lispro 0 unit 06/09/24 12:00 Insulin Lispro (Admelog) 1 Unit/0.01 Ml Unit SC 07/09/24 11:59 Q6HR [facility] Protocol Ketorolac Tromethamine 30 mg 06/06/24 15:31 06/06/24 17:08 Ketorolac Inj 30 Mg/Ml Vial IVP 06/11/24 15:30 30 mg Q6HR PRN Administration PAIN SCALE 7-10 (Severe Lidocaine 1 patch 06/09/24 09:00 06/09/24 09:26 Lidocaine 5% 1 Patch TOP 07/09/24 08:59 1 patch DAILY WARD Administration Lorazepam 1 mg 06/07/24 16:54 06/07/24 17:09 Lorazepam 0.5 Mg Tablet PO 06/12/24 16:53 1 mg Q6H PRN Administration Meth withdrawal Nicotine 21 mg 06/05/24 09:00 06/09/24 09:25 Nicotine Patch 21 Mg/24 Hr Patch.Td24 TOP 07/05/24 08:59 Not Given QDAY WARD Oseltamivir Phosphate 75 mg 06/05/24 21:00 06/09/24 09:25 Oseltamivir 75 Mg Capsule PO 06/09/24 22:00 75 mg BID WARD Administration Polyethylene Glycol 17 gm 06/07/24 09:00 06/09/24 09:25 Polyethylene Glycol 17 Gm Packet PO 07/07/24 08:59 17 gm QDAY WARD Administration Sennosides 1 tab 06/06/24 09:15 06/06/24 09:47 Senna/Docusate Sod 1 Tab Tablet PO 07/06/24 09:14 1 tab QDAY PRN Administration CONSTIPATION Protocol Sennosides 1 tab 06/06/24 09:15 Senna Tablet PO 07/06/24 09:14 QDAY PRN CONSTIPATION Protocol Plan Assessment 49-year-old male IDDM, presents with generalized body pain and fever x 1 week Also endorsing bitemporal headache and dizziness upon standing, dysuria x 3 weeks. He was admitted for sepsis in settings of influenza A and MSSA bacteremia, will undergo MARK. MSSA Bactermia Unknown source however did have left psoas infective myositis but no mention of abscess. No skin lesions, pneumonia and pending MRI spine to rule out infective causes. Blood culture again showing MSSA, we consulted cardiology who recommended MARK Patient denies history of IV drug N will need to rule out vegetations with a MARK. He BC 2/2 bottles MSSA Patient denies any kind of swallowing problems or any kind of esophageal interventions or previous surgeries. Patient denies any kind of gastric ulcers bleeding and any other hematemesis or hematochezia. Patient denies any issues with anesthesia previously. Patient explained all the risks, benefits and alternatives of MARK including the risk of perforation, bleeding, respiratory failure secondary to sedation, injury to teeth gums esophagus and stomach. Patient understands all risks and benefits and provided consent for the procedure. We will keep him n.p.o. overnight and plan for MARK in the morning. Plan: ? Discontinued VANCOMYCIN pharmacy dosed (06/05 to [present]) ? Continue CEFTRIAXONE 2 mg (06/07 to [present]) ? MARK today, follow up with results Hyponatremia (improving) Hypochloremia Likely dehydrational. Admission sodium 134 Plan: ? 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 Daiana Moore, PGY-1 Attending Provider Attestation/Addendum I have personally seen and examined the patient separately on the above date of service and discussed the plan of care with the resident. I reviewed the resident Dr. Enrique consultation progress note and agree with the resident findings and plan in the note above and have also edited the documentation to reflect my findings and plan. MARK performed on 06/10/2024 showed No evidence of any valvular vegetations or any endocarditis Normal LV size and function. Estimated EF 55-60% Normal RV size and function. Trace MR., PI. Mild TR. There is anterior trivial to small pericardial effusion, near the RA/RV. NO evidence of any tamponade Grady Ahmadi M.D. Interventional Cardiology
--- NOTE | 2024-06-09 10:51 | ESPR_ITS ---
<Statement entered by Anna Eastman MD - 06/13/24 12:19> I reviewed above note and agree with findings and plans. I have also personally examined the patient with medicine team and went over assessment and plan with medical team including brand marketing intern and resident physician. Documentation for date of: 06/09/24 Subjective Subjective Interval history: No acute overnight events. Symptoms holding pain, shortness of breath are improving subjectively. Denies new symptoms or worsening of symptoms. Tolerating oral intake well without nausea or vomiting. Denies fever, chills, headaches, chest pain, sob, cough, GI or urinary symptoms. Exam Vital Signs Temp Pulse Resp BP Pulse Ox O2 Del Method O2 Flow Rate 98.3 F 112 H 18 138/86 H 93 L Nasal Cannula 3 06/09/24 04:00 06/09/24 04:00 06/09/24 04:00 06/09/24 04:00 06/09/24 04:00 06/09/24 04:00 06/09/24 04:00 Narrative Exam GENERAL * Normal-appearing adult male, in mild distress due to pain HEENT * NCAT.?TETO. Oral mucosa is moist. Patent Nares NECK * Supple, nontender, no thyromegaly, no meningismus, no JVD, no step offs CHEST * RRR, no m/g/r * CTAB, no w/r/r. Symmetrical chest rise. No intercostal subcostal retraction * Atraumatic, nontender, no crepitus, symmetrical expansion. ABDOMEN * Soft, flat, nontender. No guarding/rebound tenderness/masses. * Bowel sounds presents EXTREMITIES * Nontender, no cyanosis, no edema * No edema/cyanosis.? * Positive left psoas sign. No overlying skin changes. SKIN * Warm and dry, no jaundice/rashes. NEUROMUSCULAR * No lumbar or midline, no CVA, no paraspinal muscle spasm or tenderness. * Moves all 4 extremities well, with full ROM and good CSM. * HEATH x4, CN II-XII grossly intact. * No focal neurologic deficits. PSYCHIATRY * Normal mood and affect, cooperative, no SI or HI or hallucinations. Objective Labs 06/09/24 04:31 06/09/24 04:31 Labs: Laboratory Results - last 24 hr 06/09/24 04:31 WBC 18.6 H RBC 3.47 L Hgb 10.2 L Hct 28.8 L MCV 83 MCH 29.4 MCHC 35.4 RDW Std Deviation 40.9 Plt Count 450 H D Neut % (Auto) 69 Lymph % (Auto) 9 L [place] % (Auto) 8 Eos % (Auto) 0 Baso % (Auto) 1 Neut # (Auto) 12.8 H Lymph # (Auto) 1.6 [place] # (Auto) 1.5 H Eos # (Auto) 0.1 Baso # (Auto) 0.1 Immature Gran # (Auto) 2.45 H Absolute Nucleated RBC 0.02 H Immature Gran % 13 H Nucleated RBC % 0 Sodium 134 L Potassium 3.7 Chloride 100 Carbon Dioxide 24.4 Anion Gap 10 BUN 8 L Creatinine 0.7 Estim Creat Clear Calc 123.5 eGFR > 60 BUN/Creatinine Ratio 11 L Glucose 154 H Calculated Osmolality 269 L Calcium 8.3 Corrected Calcium 9.0 Phosphorus 2.8 Magnesium 1.6 Total Bilirubin 1.4 H AST 80 H ALT 65 H Alkaline Phosphatase 709 H D Total Protein 6.0 Albumin 3.1 L Globulin 2.9 Albumin/Globulin Ratio 1.1 L Quality Measures Quality Measures none Assessment & Plan Assessment Current Active Medications: Generic Name Dose Route Start Last Admin Trade Name Freq PRN Reason Stop Dose Admin Acetaminophen 650 mg 06/04/24 19:42 Acetaminophen 325 Mg Tablet PO 07/04/24 19:41 Q6H PRN Fever >101.5 Hydrocodone Bitart/Acetaminophen 1 tab 06/04/24 19:42 06/09/24 06:00 Hydrocodone/Apap 5/325 Tablet PO 06/09/24 19:41 1 tab Q4HR PRN Administration PAIN SCALE 4-6 (Moderate Dextrose 25 ml 06/04/24 19:49 Dextrose 50%-Water Inj 50 Ml Syringe IV 07/04/24 19:48 Q15MIN PRN BG 50-70 responsive npo pt Dextrose 50 ml 06/04/24 19:49 Dextrose 50%-Water Inj 50 Ml Syringe IV 07/04/24 19:48 Q15MIN PRN BG <50 OR BG <70 & pt unresponsive Enoxaparin Sodium 40 mg 06/05/24 09:00 06/09/24 09:25 Enoxaparin Sod Inj 40 Mg/0.4 Ml Syringe SC 06/19/24 08:59 40 mg QDAY WARD Administration Gabapentin 300 mg 06/06/24 11:15 06/09/24 09:25 Gabapentin 300 Mg Capsule PO 07/06/24 11:14 300 mg QDAY WARD Administration Glucagon 1 mg 06/04/24 19:49 Glucagon Inj 1 Mg Vial IM Q15MIN PRN BG <70, and no IV access Guaifenesin 200 mg 06/04/24 20:53 06/07/24 04:34 Guaifenesin Syrup 200 Mg/10 Ml Udc PO 07/04/24 20:52 200 mg QID PRN Administration COUGH OR CONGESTION Protocol Sodium Chloride 1,000 mls @ 75 mls/hr 06/05/24 10:40 06/08/24 22:35 Ns IV 07/05/24 10:39 75 mls/hr .[id number] WARD Administration Ceftriaxone Sodium 2 gm/ 50 mls @ 100 mls/hr 06/07/24 09:00 06/09/24 09:25 Sodium Chloride IV 06/14/24 08:59 100 mls/hr QDAY WARD Administration Protocol Magnesium Sulfate 4 gm in 50 mls @ 12.5 mls/hr 06/09/24 07:51 06/09/24 09:31 Magnesium Sulfate Ivpb IV 06/09/24 11:50 12.5 mls/hr X1 ONE Administration Insulin Glargine 18 unit 06/08/24 21:00 06/08/24 21:51 Insulin Glargine (Lantus) 5 Unit/0.05 Ml (Per 5 Units) SC 07/08/24 20:59 18 unit HS WARD Administration Insulin Human Lispro 5 unit 06/09/24 08:00 06/09/24 07:52 Insulin Lispro (Admelog) 1 Unit/0.01 Ml Unit SC 07/09/24 07:59 Not Given TIDWM WARD Insulin Human Lispro 0 unit 06/09/24 12:00 Insulin Lispro (Admelog) 1 Unit/0.01 Ml Unit SC 07/09/24 11:59 Q6HR [facility] Protocol Ketorolac Tromethamine 30 mg 06/06/24 15:31 06/06/24 17:08 Ketorolac Inj 30 Mg/Ml Vial IVP 06/11/24 15:30 30 mg Q6HR PRN Administration PAIN SCALE 7-10 (Severe Lidocaine 1 patch 06/09/24 09:00 06/09/24 09:26 Lidocaine 5% 1 Patch TOP 07/09/24 08:59 1 patch DAILY WARD Administration Lorazepam 1 mg 06/07/24 16:54 06/07/24 17:09 Lorazepam 0.5 Mg Tablet PO 06/12/24 16:53 1 mg Q6H PRN Administration Meth withdrawal Nicotine 21 mg 06/05/24 09:00 06/09/24 09:25 Nicotine Patch 21 Mg/24 Hr Patch.Td24 TOP 07/05/24 08:59 Not Given QDAY WARD Oseltamivir Phosphate 75 mg 06/05/24 21:00 06/09/24 09:25 Oseltamivir 75 Mg Capsule PO 06/09/24 22:00 75 mg BID WARD Administration Polyethylene Glycol 17 gm 06/07/24 09:00 06/09/24 09:25 Polyethylene Glycol 17 Gm Packet PO 07/07/24 08:59 17 gm QDAY WARD Administration Sennosides 1 tab 06/06/24 09:15 06/06/24 09:47 Senna/Docusate Sod 1 Tab Tablet PO 07/06/24 09:14 1 tab QDAY PRN Administration CONSTIPATION Protocol Sennosides 1 tab 06/06/24 09:15 Senna Tablet PO 07/06/24 09:14 QDAY PRN CONSTIPATION Protocol Plan In summary: 49-year-old male IDDM, presents with generalized body pain and fever x 1 week Also endorsing bitemporal headache and dizziness upon standing, dysuria x 3 weeks. He was admitted for sepsis in settings of influenza A and MSSA bacteremia. Appreciate recommendations from ID, general surgery. MSSA Bactermia Unknown source however did have left psoas infective myositis but no mention of abscess. No skin lesions, pneumonia and pending MRI spine to rule out infective causes. Blood culture again showing MSSA. TTE and MARK both negative for vegetations. ID suspect pulmonary source. S/p VANCOMYCIN 06/05 to 06/09. Afebrile, leukocytosis slightly up 18.6. ? 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 Sepsis source improved bacteremia or pulmonary or psoas infectious process as seen on CT. Positive for influenza A. Will order QuantiFERON for latent TB considering psoas muscle inflammation which was undetermined. Repeat was ordered. ? Continue TAMIFLU 75 mg BID (06/05 to [present]) ? Continue CEFTRIAXONE 2 mg (06/07 to [present]) ? Continue GUAIFENESIN 200 mg QID ? Pending repeat blood culture, urine culture, QuantiFERON, PPD Worsening transaminitis Worsening transaminitis with increasing AST ALT and total bili. Possibly 2/2 CEFTRIAXONE. However patient reports mild abdominal pain, not noted on exam but he is also on pain meds. Follow-up with ultrasound. ? Pending abdominal ultrasound ? Daily CMP Cystitis UTI Patient endorsed dysuria for the past 3 weeks. We previously started CEFEPIME, METRONIDAZOLE for suspected psoas abscess which would also cover UTI. Currently asymptomatic. Urine cultures were negative, covering with CEFTRIAXONE anyways as above. ? Continue following cultures. Hyponatremia (improving) Hypochloremia Likely dehydrational. Admission sodium 129, currently 131 ? Normal saline maintenance fluids at 125 cc/hour ? Daily CMP Insulin dependent Diabetes mellitus type 2 On INSULIN GLARGINE 15 units. A1C >14 this visit. Certainly needs glycemic control to aid with infection recovery. Glucose 300 today. We increased INSULIN as below. Home medication Insulin glargine 15U SC daily ? Continue glargine 20 units SH ? Continue LISPRO 7 units TID ? INSULIN sliding scale ? Accu-Cheks ? Diabetic education METHAMPHETAMINE withdrawal Active METH use Tobacco dependence Patient reported daily meth use since 1996, last used 2 days ago. U tox was positive. Currently experiencing withdrawal symptoms with agitation, generalized pain, tachycardia and fever. Patient has approximately 21-gtdm-raog smoking history. Currently smokes 1 pack a day. U-Tox positive for METHAMPHETAMINE. ? Consulted on tobacco and METH cessation ? Continue LORAZEPAM 1 mg q.6h. PRN ? Continue NICOTINE patch 21 mg daily Hx of Dorsalgia Complains of chronic low back pain. MRI thoracic spine showed thoracic disc bulging, without significant impingement upon thoracic cord. Patient refused lumbar MRI due to back pain. We ordered repeat MRI. Will give DILAUDID x 1 prior to MRI. ? Continue LIDOCAINE patches daily ? Continue home GABAPENTIN 300 mg daily ? Pending MRI thoracic/lumbar to rule out abscess or infection as discussed above. Constipation No bowel movement since admission. ? Added bowel regimen Health maintenance Diet: NPO for MARK 06/08. CHO consistent GI prophylaxis: PROTONIX DVT prophylaxis: LOVENOX Antibiotics: CTX, TAMIFLU CODE STATUS: Full code Disposition: Pending blood cultures Patient case was discussed with attending, Dr. Anna Eastman MD and senior residents Dr. Bauer and Dr. Howell. Linnea Swann, DO PGYI Senior Resident Attestation: The patient is a 49-year-old male with uncontrolled diabetes mellitus, presented with generalized body pain and fever for 1 week and was found to have MSSA bacteremia likely secondary to sepsis secondary to left psoas infective myositis. The patient reported that he continues to have lower back pain. His vitals were fairly stable saturating 94 to 95% on 3 L NC. White count mildly trended up to 18.6. Blood culture again significant for GPC. We will continue with insulin glargine 18 units at bedtime, insulin lispro 5 units 3 times daily with meals, and SSI lispro moderate scale. MARK was ordered to rule out any valvular vegetations and was negative. In the meantime, we will continue with ceftriaxone 2 g daily. Vancomycin was discontinued. Tuberculin PPD test was ordered to rule out any latent tuberculosis. We plan to get his MRI lumbar spine. The patient seems to be having methamphetamine withdrawal, and is on as needed lorazepam 1 mg every 6 hourly as needed. And we will continue with his other home medications. I discussed with and supervised the brand marketing intern physician involved in the care of this patient. I personally saw and examined the patient and discussed the assessment and plan with the entire medicine team, including my attending. I agree with the assessment and plan as documented above. Piotr Howell MD PGY2 Internal Medicine
--- NOTE | 2024-06-09 10:51 | XR_ITS ---
Examination: Abdomen sonogram, complete Date and time of exam: June 09, 2024 1303 hrs. Indications: Abdominal pain beginning 2 weeks ago with elevated alkaline phosphatase on laboratory examination today. Technique: Multiple real-time grayscale transabdominal sonographic images of the abdomen have been obtained. Findings: 17 mm stone in the gallbladder neck Gallbladder wall 0.3 cm no edema Common bile duct 0.3 cm Pancreatic head 4.8 cm Aorta obscured by bowel gas Liver 16.1 cm fatty infiltration mild ascites lobular contour of the liver Normal hepatopedal portal venous oh Patent IVC Right kidney 13.3 x 7.3 x 7.5 cm renal cortex 2.6 cm with edema Left kidney 10.5 x 6.7 x 7.3 cm cortex 2.7 cm with edema Spleen 10.2 cm Right pleural effusion partly visualized Impression: Cholelithiasis, negative for cholecystitis Fatty liver primary hepatocellular disease Mild ascites Kidneys are edematous, consider urinary tract infection
[2024-06-09] MEDS: BENZOCAINE 20% (Hurricaine) SPRAY 1 DOSE TOP (11:50)
[2024-06-09] MEDS: fentaNYL CIT INJ 50 mCg/ML AMP 2ML 75 MCG IV (11:51)
[2024-06-09] MEDS: MIDAZOLAM INJ 1 MG/ML VIAL 2 ML 3.5 MG IV (11:52)
[2024-06-09] MEDS: HYDROmorphone INJ 2 MG/ML VIAL 0.5 MG IVP (15:28)
[2024-06-09] MEDS: INSULIN LISPRO (AdmeLOG) 1 UNIT/0.01 ML UNIT SC ×2 (17:50→23:11)
[2024-06-09] MEDS: INSULIN LISPRO (AdmeLOG) 1 UNIT/0.01 ML UNIT 5 UNIT SC (17:50)
[2024-06-09] MEDS: SODIUM CHLORIDE 0.9% 1000 ML 1,000 ML 75 ML IV (18:35)
[2024-06-09] MEDS: guaiFENesin SYRUP 200 MG/10 ML UDC PO (20:08)
[2024-06-09] MEDS: LORazepam 0.5 MG TABLET 1 MG PO (20:08)
[2024-06-09] MEDS: KETOROLAC INJ 30 MG/ML VIAL IVP (20:08)
[2024-06-09] MEDS: INSULIN GLARGINE (Lantus) 5 UNIT/0.05 ML (PER 5 UNITS) 18 UNIT SC (20:12)
[2024-06-10] VITALS (11 sets, daily range): BP systolic 116–145; BP diastolic 70–95; PULSE 86–119; RESP 18–25; TEMP 36.4–39.4; O2SAT 91–96; BMI 14.0; BMI 24.7
[2024-06-10] MEDS: KETOROLAC INJ 30 MG/ML VIAL IVP ×2 (02:20→10:45)
[2024-06-10] MEDS: ACETAMINOPHEN 325 MG TABLET 650 MG PO ×2 (05:35→18:00)
[2024-06-10 06:20] LABS: Basophils # (Auto) 0.1 Thou/mm3 (0.0-0.2); Basophils % (Auto) 0 % (0-2.5); Eosinophils # (Auto) 0.2 Thou/mm3 (0.0-0.5); Eosinophils % (Auto) 1 % (0-10); Immature Granulocytes % (Auto) 9 % (0-0); Immature Granulocytes Auto 1.51 Thou/mm3 (0.00-0.00); Lymphocytes # (Auto) 1.4 Thou/mm3 (1.0-4.8); Lymphocytes % (Auto) 9 % (10-50); Mean Corpuscular HGB Conc 34.3 g/dl (31.0-37.0); Mean Corpuscular Hemoglobin 28.9 pg (25.0-35.0); Mean Corpuscular Volume 84 fL (80-100); Monocytes # (Auto) 1.2 Thou/mm3 (0.0-0.8); Monocytes % (Auto) 7 % (0-12); Neutrophils # (Auto) 12.2 Thou/mm3 (1.8-7.7); Neutrophils % (Auto) 74 % (37-80); Nucleated Red Blood Cell % 0 /100 WBC (0); Platelet Count 451 Thou/mm3 (140-440); RDW Standard Deviation 43.8 fL (35.1-43.9); Red Blood Count 2.73 Miln/mm3 (4.50-5.90); White Blood Count 16.5 Thou/mm3 (3.8-10.6)
[2024-06-10 06:23] LABS: Hemoglobin 7.9 g/dL (13.5-16.0)
[2024-06-10 06:46] LABS: Alanine Aminotransferase 43 U/L (10-49); Albumin, Serum 2.6 gm/dL (3.5-5.0); Alkaline Phosphatase 541 U/L (46-116); Anion Gap 7 (7-16); Aspartate Amino Transferase 40 U/L (0-34); BUN/Creatinine Ratio 14 Ratio (12-20); Bilirubin,Total 0.8 mg/dL (0.3-1.2); Blood Urea Nitrogen 7 mg/dL (9-23); Calcium 7.1 mg/dL (8.3-10.6); Calcium (Corrected) 8.2 mg/dL (8.5-10.1); Carbon Dioxide 25.2 mMol/L (20.0-31.0); Chloride 105 mMol/L (98-107); Creatinine (Component) 0.5 mg/dL (0.6-1.3); Estimated Creatinine Clearance 172.9 mL/min (>60); Globulin 2.6 gm/dL (2.3-3.5); Glucose 64 mg/dL (74-106); Magnesium 2.2 mg/dL (1.6-2.6); Osmolality,Calculated 269 (275-295); Phosphorous 3.3 mg/dL (2.4-5.1); Potassium 3.3 mMol/L (3.4-5.1); Sodium 137 mMol/L (136-145); Total Protein 5.2 gm/dL (5.7-8.2); eGFR > 60 See Note
[2024-06-10] MEDS: POTASSIUM CHL 10 mEq IVPB 10 MEQ/100 ML BAG 100 MEQ IV ×4 (08:27→11:46)
[2024-06-10] MEDS: ENOXAPARIN SOD INJ 40 MG/0.4 ML SYRINGE SC (08:31)
[2024-06-10] MEDS: CALCIUM CARBONATE 600 MG TABLET PO (08:31)
[2024-06-10] MEDS: POLYETHYLENE GLYCOL 17 GM PACKET PO (08:31)
[2024-06-10] MEDS: LIDOCAINE 5% 1 PATCH TOP (08:32)
[2024-06-10] MEDS: GABAPENTIN 300 MG CAPSULE PO (08:32)
[2024-06-10] MEDS: POTASSIUM CHLORIDE 20 mEq TABCR 40 MEQ PO (08:32)
[2024-06-10] MEDS: NICOTINE PATCH 21 MG/24 HR PATCH.TD24 TOP (08:32)
[2024-06-10] MEDS: cefTRIAXone/D5w 2gm(DO NOT USE 2 GM/50 ML BAG IV (08:52)
--- NOTE | 2024-06-10 09:15 | PC.CM ---
Addendum entered by Qiana Benítez RN 06/10/24 15:02: 1400 I reviewed chart and I do not see an IPA attached to this patient so I called [facility] and I left a detained message stating we need authorization to transfer patient to [facility]. My message was left with Chuy at at and Radha [phone]. Addendum entered by Qiana Benítez RN 06/10/24 14:44: 1330 I spoke to Judi at the [facility] and she states they are interested in accepting patient but they do not have any beds at this time. She also stated we would need authorization from patient's insurance before they would precede. She asked me to reach out to patient's [facility] to get authorization. I let know not be able to geth auth today being it was the weekend. She faxed me over a transfer back agreement that needs to be signed and faxed back. I stated packet and made a CD. Original Note: 08 I received a referral to transfer patient for neurosurgery for osteomyelitis of L3 and L4 and possible early abscess L3 and L5. I called [facility] and I initiated a transfer with Judi transfer nurse. I pushed over images and faxed over paperwork.
[2024-06-10] MEDS: GLYCERIN, ADULT 1 EA SUPP 1 EACH PR (09:34)
--- NOTE | 2024-06-10 13:00 | PC.PT ---
Pt annoyed during PT eval since he reportedly had just gotten comfortable. Pt reports limited by chronic LBP. recommend outpt PT to address deconditioning from illness and LBP that limits function
[2024-06-10] MEDS: oxyCODONE/APAP 5/325 TABLET 1 TAB PO ×2 (13:02→23:17)
--- NOTE | 2024-06-10 13:41 | ESPR_ITS ---
<Statement entered by Anna Eastman MD - 06/16/24 15:03> I reviewed above note and agree with findings and plans. I have also personally examined the patient with medicine team and went over assessment and plan with medical team including actuarial intern and resident physician. Documentation for date of: 06/10/24 Subjective Subjective Interval history: No acute overnight events. Still has back pain, however managed with pain medication. Denies new symptoms or worsening of symptoms. Denies fever, chills, headaches, chest pain, sob, cough, GI or urinary symptoms. Exam Vital Signs Temp Pulse Resp BP Pulse Ox O2 Del Method O2 Flow Rate 97.5 F 86 24 H 119/77 93 L Oxy Mask 6 06/10/24 08:00 06/10/24 08:00 06/10/24 08:00 06/10/24 08:00 06/10/24 08:00 06/10/24 08:00 06/10/24 08:00 Narrative Exam GENERAL * Normal-appearing adult male, in mild distress due to pain HEENT * NCAT.?TETO. Oral mucosa is moist. Patent Nares NECK * Supple, nontender, no thyromegaly, no meningismus, no JVD, no step offs CHEST * RRR, no m/g/r * CTAB, no w/r/r. Symmetrical chest rise. No intercostal subcostal retraction * Atraumatic, nontender, no crepitus, symmetrical expansion. ABDOMEN * Soft, flat, nontender. No guarding/rebound tenderness/masses. * Bowel sounds presents EXTREMITIES * Nontender, no cyanosis, no edema * No edema/cyanosis.? * Positive left psoas sign. No overlying skin changes. SKIN * Warm and dry, no jaundice/rashes. NEUROMUSCULAR * No lumbar or midline, no CVA, no paraspinal muscle spasm or tenderness. * Moves all 4 extremities well, with full ROM and good CSM. * HEATH x4, CN II-XII grossly intact. * No focal neurologic deficits. PSYCHIATRY * Normal mood and affect, cooperative, no SI or HI or hallucinations. Objective Labs 06/10/24 05:40 06/10/24 05:40 Labs: Laboratory Results - last 24 hr 06/10/24 05:40 WBC 16.5 H RBC 2.73 L Hgb 7.9 L D Hct 23.0 L MCV 84 MCH 28.9 MCHC 34.3 RDW Std Deviation 43.8 Plt Count 451 H Neut % (Auto) 74 Lymph % (Auto) 9 L [place] % (Auto) 7 Eos % (Auto) 1 Baso % (Auto) 0 Neut # (Auto) 12.2 H Lymph # (Auto) 1.4 [place] # (Auto) 1.2 H Eos # (Auto) 0.2 Baso # (Auto) 0.1 Immature Gran # (Auto) 1.51 H Absolute Nucleated RBC 0.00 Immature Gran % 9 H Nucleated RBC % 0 Sodium 137 Potassium 3.3 L Chloride 105 Carbon Dioxide 25.2 Anion Gap 7 BUN 7 L Creatinine 0.5 L Estim Creat Clear Calc 172.9 eGFR > 60 BUN/Creatinine Ratio 14 Glucose 64 L D Calculated Osmolality 269 L Calcium 7.1 L Corrected Calcium 8.2 L Phosphorus 3.3 Magnesium 2.2 Total Bilirubin 0.8 D AST 40 H ALT 43 Alkaline Phosphatase 541 H D Total Protein 5.2 L Albumin 2.6 L D Globulin 2.6 Albumin/Globulin Ratio 1.0 L Quality Measures Quality Measures none Assessment & Plan Assessment Current Active Medications: Generic Name Dose Route Start Last Admin Trade Name Freq PRN Reason Stop Dose Admin Acetaminophen 650 mg 06/04/24 19:42 06/10/24 05:35 Acetaminophen 325 Mg Tablet PO 07/04/24 19:41 650 mg Q6H PRN Administration Fever >101.5 Acetaminophen 650 mg 06/10/24 12:48 Acetaminophen 325 Mg Tablet PO 07/10/24 12:47 Q4HR PRN Pain Scale 1-3 (Mild) Hydrocodone Bitart/Acetaminophen 1 tab 06/10/24 12:50 Hydrocodone/Apap 10/325 Tab PO 06/15/24 12:49 Q4HR PRN Pain Scale 7-10 (Severe) Dextrose 25 ml 06/04/24 19:49 Dextrose 50%-Water Inj 50 Ml Syringe IV 07/04/24 19:48 Q15MIN PRN BG 50-70 responsive npo pt Dextrose 50 ml 06/04/24 19:49 Dextrose 50%-Water Inj 50 Ml Syringe IV 07/04/24 19:48 Q15MIN PRN BG <50 OR BG <70 & pt unresponsive Gabapentin 300 mg 06/06/24 11:15 06/10/24 08:32 Gabapentin 300 Mg Capsule PO 07/06/24 11:14 300 mg QDAY WARD Administration Glucagon 1 mg 06/04/24 19:49 Glucagon Inj 1 Mg Vial IM Q15MIN PRN BG <70, and no IV access Glycerin 1 each 06/10/24 08:49 Glycerin, Adult 1 Ea Supp [place] 07/10/24 08:48 QDAY PRN CONSTIPATION Guaifenesin 200 mg 06/04/24 20:53 06/09/24 20:08 Guaifenesin Syrup 200 Mg/10 Ml Udc PO 07/04/24 20:52 200 mg QID PRN Administration COUGH OR CONGESTION Protocol Heparin Sodium (Porcine) 5,000 unit 06/11/24 09:00 Heparin Sod Inj 5000 Unit/Ml Vial SC 06/25/24 08:59 Q8HR [facility] Ceftriaxone Sodium/Dextrose 2 gm in 50 mls @ 100 mls/hr 06/10/24 09:00 06/10/24 08:52 Rocephin/D5w 2gm IV 06/17/24 08:59 100 mls/hr QDAY WARD Administration Protocol Insulin Glargine 18 unit 06/08/24 21:00 06/09/24 20:12 Insulin Glargine (Lantus) 5 Unit/0.05 Ml (Per 5 Units) SC 07/08/24 20:59 18 unit HS [facility] Administration Insulin Human Lispro 5 unit 06/09/24 08:00 06/10/24 11:39 Insulin Lispro (Admelog) 1 Unit/0.01 Ml Unit SC 07/09/24 07:59 Not Given TIDWM [facility] Insulin Human Lispro 0 unit 06/09/24 12:00 06/10/24 11:40 Insulin Lispro (Admelog) 1 Unit/0.01 Ml Unit SC 07/09/24 11:59 Not Given Q6HR [facility] Protocol Ketorolac Tromethamine 30 mg 06/06/24 15:31 06/10/24 10:45 Ketorolac Inj 30 Mg/Ml Vial IVP 06/11/24 15:30 30 mg Q6HR PRN Administration PAIN SCALE 7-10 (Severe Lidocaine 1 patch 06/09/24 09:00 06/10/24 08:32 Lidocaine 5% 1 Patch TOP 07/09/24 08:59 1 patch DAILY WARD Administration Lorazepam 1 mg 06/07/24 16:54 01/17/25 20:08 Lorazepam 0.5 Mg Tablet PO 06/12/24 16:53 1 mg Q6H PRN Administration Meth withdrawal Nicotine 21 mg 06/05/24 09:00 06/10/24 08:32 Nicotine Patch 21 Mg/24 Hr Patch.Td24 TOP 07/05/24 08:59 21 mg QDAY WARD Administration Oxycodone/Acetaminophen 1 tab 06/10/24 12:50 06/10/24 13:02 Oxycodone/Apap 5/325 Tablet PO 06/15/24 12:49 1 tab Q6H PRN Administration Pain Scale 4-6 (Moderate) Polyethylene Glycol 17 gm 06/07/24 09:00 06/10/24 08:31 Polyethylene Glycol 17 Gm Packet PO 07/07/24 08:59 17 gm QDAY WARD Administration Sennosides 1 tab 06/06/24 09:15 06/06/24 09:47 Senna/Docusate Sod 1 Tab Tablet PO 07/06/24 09:14 1 tab QDAY PRN Administration CONSTIPATION Protocol Sennosides 1 tab 06/06/24 09:15 Senna Tablet PO 07/06/24 09:14 QDAY PRN CONSTIPATION Protocol Plan In summary: 49-year-old male IDDM, presents with generalized body pain and fever x 1 week Also endorsing bitemporal headache and dizziness upon standing, dysuria x 3 weeks. Initially admitted for sepsis in settings of influenza A and MSSA bacteremia. Lumbar MRI showed osteomyelitis of L3/L4 with possible abscess. Currently attempting transfer for neurological intervention. Appreciate recommendations from ID, general surgery. Osteomyelitis of L3/L4 vertebral bodies ? Early epidural abscess at L3/L4/L5 Lumbar MRI showed Osteomyelitis involving the L3 and L4 vertebral bodies, minimal posterior epidural enhancement at the L3, L4 and L5 levels suggestive of epidural abscess. Attempting transfer for neurological intervention, otherwise will continue with 6 weeks of IV ANTIBIOTICS. MSSA Bactermia Source likely osteomyelitis as above. No skin lesions, pneumonia and pending MRI spine to rule out infective causes. Blood culture again showing MSSA. TTE and MARK both negative for vegetations. ID suspect pulmonary source. S/p VANCOMYCIN 06/05 to 06/09. Afebrile, cytosis improving. Blood culture from 06/09 showed no growth after 24 hours. ? Continue CEFTRIAXONE 2 mg (06/07 to [present]) ? 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 Sepsis source improved bacteremia or pulmonary or psoas infectious process as seen on CT. Positive for influenza A. Will order QuantiFERON for latent TB considering psoas muscle inflammation which was undetermined. Repeat was ordered. ? Continue TAMIFLU 75 mg BID (06/05 to [present]) ? Continue CEFTRIAXONE 2 mg (06/07 to [present]) ? Continue GUAIFENESIN 200 mg QID ? Pending repeat blood culture, urine culture, QuantiFERON, PPD Transaminitis (improved) Worsening transaminitis with increasing AST ALT and total bili. Possibly 2/2 CEFTRIAXONE. However patient reports mild abdominal pain, not noted on exam but he is also on pain meds. Abdominal ultrasound showed fatty liver with primary hepatocellular disease, mild ascites, edematous kidney suggestive of UTI, cholelithiasis, but no cholecystitis. Abdominal pain improved. LFTs are downtrending. ? Daily CMP Cystitis UTI Patient endorsed dysuria for the past 3 weeks. We previously started CEFEPIME, METRONIDAZOLE for suspected psoas abscess which would also cover UTI. Currently asymptomatic. Urine cultures were negative, covering with CEFTRIAXONE anyways as above. ? Final urine culture has been negative. Hyponatremia (improving) Hypochloremia Likely dehydrational. Admission sodium 129, currently 131 ? Normal saline maintenance fluids at 125 cc/hour ? Daily CMP Insulin dependent Diabetes mellitus type 2 On INSULIN GLARGINE 15 units. A1C >14 this visit. Certainly needs glycemic control to aid with infection recovery. Glucose 300 today. We increased INSULIN as below. Home medication Insulin glargine 15U SC daily ? Continue glargine 20 units SH ? Continue LISPRO 7 units TID ? INSULIN sliding scale ? Accu-Cheks ? Diabetic education METHAMPHETAMINE withdrawal Active METH use Tobacco dependence Patient reported daily meth use since 1996, last used 2 days ago. U tox was positive. Currently experiencing withdrawal symptoms with agitation, generalized pain, tachycardia and fever. Patient has approximately [id number] smoking history. Currently smokes 1 pack a day. U-Tox positive for METHAMPHETAMINE. ? Consulted on tobacco and METH cessation ? Continue LORAZEPAM 1 mg q.6h. PRN ? Continue NICOTINE patch 21 mg daily Hx of Dorsalgia Complains of chronic low back pain. MRI thoracic spine showed thoracic disc bulging, without significant impingement upon thoracic cord. Patient refused lumbar MRI due to back pain. We ordered repeat MRI. Will give DILAUDID x 1 prior to MRI. ? Continue LIDOCAINE patches daily ? Continue home GABAPENTIN 300 mg daily ? Pending MRI thoracic/lumbar to rule out abscess or infection as discussed above. Constipation No bowel movement since admission. ? Added bowel regimen Health maintenance Diet: NPO for MARK 06/08. CHO consistent GI prophylaxis: PROTONIX DVT prophylaxis: LOVENOX Antibiotics: CTX, TAMIFLU CODE STATUS: Full code Disposition: Pending blood cultures Patient case was discussed with attending, Dr. Anna Eastman MD and senior residents Dr. Bauer and Dr. Howell. Linnea Swann, DO PGYI Senior Resident Attestation: The patient is a 49-year-old male with uncontrolled diabetes mellitus, presented with generalized body pain and fever for 1 week and was found to have MSSA bacteremia likely secondary to sepsis secondary to left psoas infective myositis. The patient reported that he continues to have lower back pain. His vitals were fairly stable saturating 94 to 95% on 5 L NC. White count mildly trended up to 16.5. Blood culture preliminary came back negative. MARK negative for any vegation, MRI lumbar spine significant for early abscess. Transfer to spinal surgery center was initiated. We will continue with insulin glargine 18 units at bedtime, insulin lispro 5 units 3 times daily with meals, and SSI lispro moderate scale. COntinue with ceftriaxone 2g daily, and continue with pain meds as needed. The patient seems to be having methamphetamine withdrawal, and is on as needed lorazepam 1 mg every 6 hourly as needed. And we will continue with his other home medications. I discussed with and supervised the actuarial intern physician involved in the care of this patient. I personally saw and examined the patient and discussed the assessment and plan with the entire medicine team, including my attending. I agree with the assessment and plan as documented above. Piotr Howell MD PGY2 Internal Medicine
[2024-06-10] MEDS: HYDROcodone/APAP 10/325 TAB PO ×2 (17:08→20:39)
[2024-06-10] MEDS: INSULIN LISPRO (AdmeLOG) 1 UNIT/0.01 ML UNIT 5 UNIT SC (17:25)
[2024-06-10] MEDS: INSULIN LISPRO (AdmeLOG) 1 UNIT/0.01 ML UNIT SC ×2 (17:26→23:20)
[2024-06-10] MEDS: guaiFENesin SYRUP 200 MG/10 ML UDC PO (17:54)
--- NOTE | 2024-06-10 18:26 | PD.RESEVENT ---
Documentation for date of: 06/10/24 Event Note Event Note: Was called by nursing staff for tachycardia 120s , tachypnea RR>24, and fevers 102, and stabbing chest pain radiating to the bilateral upper extremities. Examined patient at the bedside. Reviewed labs noted acute 2 point decrease in Hg today ordered repeat H&H and stool occult, ordered troponins, lactate and 500ml Bolus of NS, Ketorolac was held and started PPI for concern of peptic ulcer disease Will sign out to night team about patients status and to follow up labs. Damion Curran MD PGY-1
[2024-06-10] MEDS: SODIUM CHLORIDE 0.9% 500 ML 500 ML 999 ML IV (18:27)
[2024-06-10] MEDS: PANTOPRAZOLE 40 MG TABLET PO (18:27)
--- NOTE | 2024-06-10 18:38 | PC.NURSE ---
Patient's heart heart is 127, RR of 27 and temp of 102 F orally. He is also complaining of a little bit of chest pain and difficulty breathing. He is on oxygen 4LPM via NC. MD notified and examined the patient. New orders given.
[2024-06-10 19:06] LABS: Lactate (Lactic Acid) 1.1 mMol/L (0.4-2.0)
[2024-06-10 19:09] LABS: Hematocrit 27.8 % (41.0-53.0); Hemoglobin 9.8 g/dL (13.5-16.0)
[2024-06-10 19:40] LABS: Troponin I < 0.020 ng/mL (0.0-0.045)
[2024-06-10] MEDS: INSULIN GLARGINE (Lantus) 5 UNIT/0.05 ML (PER 5 UNITS) 18 UNIT SC (20:31)
[2024-06-11] VITALS (7 sets, daily range): BP systolic 94–147; BP diastolic 60–93; PULSE 61–120; RESP 13–24; TEMP 36.1–37.6; O2SAT 92–96
[2024-06-11] MEDS: HYDROcodone/APAP 10/325 TAB PO ×4 (02:47→21:35)
[2024-06-11] MEDS: INSULIN LISPRO (AdmeLOG) 1 UNIT/0.01 ML UNIT SC ×2 (05:34→17:37)
[2024-06-11 05:42] LABS: Basophils # (Auto) 0.1 Thou/mm3 (0.0-0.2); Basophils % (Auto) 0 % (0-2.5); Eosinophils # (Auto) 0.2 Thou/mm3 (0.0-0.5); Eosinophils % (Auto) 1 % (0-10); Hematocrit 27.2 % (41.0-53.0); Hemoglobin 9.4 g/dL (13.5-16.0); Immature Granulocytes % (Auto) 8 % (0-0); Immature Granulocytes Auto 1.85 Thou/mm3 (0.00-0.00); Lymphocytes # (Auto) 1.5 Thou/mm3 (1.0-4.8); Lymphocytes % (Auto) 7 % (10-50); Mean Corpuscular HGB Conc 34.6 g/dl (31.0-37.0); Mean Corpuscular Hemoglobin 29.2 pg (25.0-35.0); Mean Corpuscular Volume 85 fL (80-100); Monocytes # (Auto) 1.3 Thou/mm3 (0.0-0.8); Monocytes % (Auto) 6 % (0-12); Neutrophils # (Auto) 17.3 Thou/mm3 (1.8-7.7); Neutrophils % (Auto) 78 % (37-80); Nucleated Red Blood Cell # 0.02 Thou/mm3 (0.00-0.00); Nucleated Red Blood Cell % 0 /100 WBC (0); Platelet Count 616 Thou/mm3 (140-440); RDW Standard Deviation 43.8 fL (35.1-43.9); Red Blood Count 3.22 Miln/mm3 (4.50-5.90); White Blood Count 22.2 Thou/mm3 (3.8-10.6)
[2024-06-11 06:19] LABS: Alanine Aminotransferase 47 U/L (10-49); Albumin, Serum 3.1 gm/dL (3.5-5.0); Albumin/Globulin Ratio 0.9 (1.2-2.2); Alkaline Phosphatase 741 U/L (46-116); Anion Gap 7 (7-16); Aspartate Amino Transferase 43 U/L (0-34); BUN/Creatinine Ratio 12 Ratio (12-20); Bilirubin,Total 0.7 mg/dL (0.3-1.2); Blood Urea Nitrogen 11 mg/dL (9-23); Calcium 8.5 mg/dL (8.3-10.6); Calcium (Corrected) 9.2 mg/dL (8.5-10.1); Carbon Dioxide 26.5 mMol/L (20.0-31.0); Chloride 100 mMol/L (98-107); Creatinine (Component) 0.9 mg/dL (0.6-1.3); Estimated Creatinine Clearance 96.1 mL/min (>60); Globulin 3.4 gm/dL (2.3-3.5); Glucose 131 mg/dL (74-106); Magnesium 1.9 mg/dL (1.6-2.6); Osmolality,Calculated 267 (275-295); Phosphorous 3.6 mg/dL (2.4-5.1); Potassium 4.6 mMol/L (3.4-5.1); Sodium 133 mMol/L (136-145); Total Protein 6.5 gm/dL (5.7-8.2); eGFR > 60 See Note
[2024-06-11] MEDS: POLYETHYLENE GLYCOL 17 GM PACKET PO (09:22)
[2024-06-11] MEDS: cefTRIAXone/D5w 2gm(DO NOT USE 2 GM/50 ML BAG IV (09:22)
[2024-06-11] MEDS: PANTOPRAZOLE 40 MG TABLET PO (09:22)
[2024-06-11] MEDS: GABAPENTIN 300 MG CAPSULE PO (09:22)
[2024-06-11] MEDS: LIDOCAINE 5% 1 PATCH TOP (09:23)
[2024-06-11] MEDS: HEPARIN SOD INJ 5000 UNIT/ML VIAL SC ×3 (09:23→21:40)
--- NOTE | 2024-06-11 09:30 | PC.CC ---
Transfer back agreement signed and faxed back to [facility]
[2024-06-11] MEDS: guaiFENesin SYRUP 200 MG/10 ML UDC PO ×2 (10:02→16:52)
[2024-06-11] MEDS: ceFAZolin/D5W 2 GM IV 2 GM/100 ML BAG IV ×3 (11:00→21:35)
--- NOTE | 2024-06-11 13:40 | ESPR_ITS ---
<Statement entered by Anna Eastman MD - 06/18/24 16:25> I reviewed above note and agree with findings and plans. I have also personally examined the patient with medicine team and went over assessment and plan with medical team including actuarial intern and resident physician. Documentation for date of: 06/11/24 Subjective Subjective Interval history: .Patient was examined bedside this morning, his WBC count trending up change the antibiotic from Zosyn to cefazolin, blood cultures still showing GPC's. Blood cultures were repeated. Still pending the transfer to [facility] for neurosurgical intervention. Exam Vital Signs Temp Pulse Resp BP Pulse Ox O2 Del Method O2 Flow Rate 98.7 F 103 H 13 125/78 93 L Nasal Cannula 3 06/11/24 12:00 06/11/24 12:00 06/11/24 12:00 06/11/24 12:00 06/11/24 12:00 06/11/24 12:00 06/11/24 12:00 Narrative Exam GENERAL: Comfortable adult seen resting comfortably in hospital bed,Mild distress VITALS: All vitals were reviewed and the pulse ox is 98% on room air HEENT: Normocephalic, atraumatic. Pupils are equal and reactive. Oral mucosa is moist. NECK: Supple, nontender, no JVD CHEST: Symmetrical, atraumatic and with equal expansion ,Nontender on palpation CARDIOVASCULAR: Heart regular rhythm & rate. S1/S2. no murmur or gallop rub or extra beats. LUNGS: Clear to auscultation bilaterally with symmetrical chest rise. No laboring tachypnea or wheezing. No intercostal subcostal retraction. No rales and no rhonchi. ABDOMEN: Soft, flat, nontender to palpation, no guarding or rebound tenderness. Active and normal bowel sounds. EXTREMITIES:Moves all 4 extremities,No B/L LE edema.Positive left psoas sign. No overlying skin changes SKIN: Warm and dry, no jaundice or rashes noted. NEURO: Patient is AO x 3, Cranial nerves II through XII grossly intact. There is no focal neurologic deficits noted. PSYCHIATRIC: Patient is in normal mood, cooperative, no SI or HI or hallucinations. Objective Labs 06/11/24 04:44 06/11/24 04:44 Labs: Laboratory Results - last 24 hr 06/10/24 06/11/24 18:46 04:44 WBC 22.2 H D RBC 3.22 L Hgb 9.8 L D 9.4 L Hct 27.8 L 27.2 L MCV 85 MCH 29.2 MCHC 34.6 RDW Std Deviation 43.8 Plt Count 616 H D Neut % (Auto) 78 Lymph % (Auto) 7 L [place] % (Auto) 6 Eos % (Auto) 1 Baso % (Auto) 0 Neut # (Auto) 17.3 H Lymph # (Auto) 1.5 [place] # (Auto) 1.3 H Eos # (Auto) 0.2 Baso # (Auto) 0.1 Immature Gran # (Auto) 1.85 H Absolute Nucleated RBC 0.02 H Immature Gran % 8 H Nucleated RBC % 0 Sodium 133 L Potassium 4.6 D Chloride 100 Carbon Dioxide 26.5 Anion Gap 7 BUN 11 Creatinine 0.9 Estim Creat Clear Calc 96.1 eGFR > 60 BUN/Creatinine Ratio 12 Glucose 131 H D Calculated Osmolality 267 L Lactic Acid 1.1 Calcium 8.5 Corrected Calcium 9.2 Phosphorus 3.6 Magnesium 1.9 Total Bilirubin 0.7 AST 43 H ALT 47 Alkaline Phosphatase 741 H D Troponin I < 0.020 Total Protein 6.5 Albumin 3.1 L D Globulin 3.4 Albumin/Globulin Ratio 0.9 L Quality Measures Quality Measures none Assessment & Plan Assessment Current Active Medications: Generic Name Dose Route Start Last Admin Trade Name Scotq PRN Reason Stop Dose Admin Acetaminophen 650 mg 06/04/24 19:42 06/10/24 18:00 Acetaminophen 325 Mg Tablet PO 07/04/24 19:41 650 mg Q6H PRN Administration Fever >101.5 Acetaminophen 650 mg 06/10/24 12:48 Acetaminophen 325 Mg Tablet PO 07/10/24 12:47 Q4HR PRN Pain Scale 1-3 (Mild) Hydrocodone Bitart/Acetaminophen 1 tab 06/10/24 12:50 06/11/24 10:02 Hydrocodone/Apap 10/325 Tab PO 06/15/24 12:49 1 tab Q4HR PRN Administration Pain Scale 7-10 (Severe) Dextrose 25 ml 06/04/24 19:49 Dextrose 50%-Water Inj 50 Ml Syringe IV 07/04/24 19:48 Q15MIN PRN BG 50-70 responsive npo pt Dextrose 50 ml 06/04/24 19:49 Dextrose 50%-Water Inj 50 Ml Syringe IV 07/04/24 19:48 Q15MIN PRN BG <50 OR BG <70 & pt unresponsive Gabapentin 300 mg 06/06/24 11:15 06/11/24 09:22 Gabapentin 300 Mg Capsule PO 07/06/24 11:14 300 mg QDAY [facility] Administration Glucagon 1 mg 06/04/24 19:49 Glucagon Inj 1 Mg Vial IM Q15MIN PRN BG <70, and no IV access Glycerin 1 each 06/10/24 08:49 Glycerin, Adult 1 Ea Supp [place] 07/10/24 08:48 QDAY PRN CONSTIPATION Guaifenesin 200 mg 06/04/24 20:53 06/11/24 10:02 Guaifenesin Syrup 200 Mg/10 Ml Udc PO 07/04/24 20:52 200 mg QID PRN Administration COUGH OR CONGESTION Protocol Heparin Sodium (Porcine) 5,000 unit 06/11/24 09:00 06/11/24 09:23 Heparin Sod Inj 5000 Unit/Ml Vial SC 06/25/24 08:59 5,000 unit Q8HR [facility] Administration Cefazolin Sodium 2 gm in 100 mls @ 100 mls/hr 06/11/24 10:38 06/11/24 11:00 Ancef 2gm Ivpb IV 06/18/24 10:37 100 mls/hr Q8HR [facility] Administration Insulin Glargine 18 unit 06/08/24 21:00 06/10/24 20:31 Insulin Glargine (Lantus) 5 Unit/0.05 Ml (Per 5 Units) [place] 07/08/24 20:59 18 unit HS [facility] Administration Insulin Human Lispro 5 unit 06/09/24 08:00 06/11/24 07:58 Insulin Lispro (Admelog) 1 Unit/0.01 Ml Unit [place] 07/09/24 07:59 Not Given TIDWM [facility] Insulin Human Lispro 0 unit 06/09/24 12:00 06/11/24 12:30 Insulin Lispro (Admelog) 1 Unit/0.01 Ml Unit [place] 07/09/24 11:59 Not Given Q6HR [facility] Protocol Lidocaine 1 patch 06/09/24 09:00 06/11/24 09:23 Lidocaine 5% 1 Patch TOP 07/09/24 08:59 1 patch DAILY [facility] Administration Lorazepam 1 mg 06/07/24 16:54 06/09/24 20:08 Lorazepam 0.5 Mg Tablet PO 06/12/24 16:53 1 mg Q6H PRN Administration Meth withdrawal Nicotine 21 mg 06/05/24 09:00 06/11/24 09:23 Nicotine Patch 21 Mg/24 Hr Patch.Td24 TOP 07/05/24 08:59 Not Given QDAY [facility] Oxycodone/Acetaminophen 1 tab 06/10/24 12:50 06/10/24 23:17 Oxycodone/Apap 5/325 Tablet PO 06/15/24 12:49 1 tab Q6H PRN Administration Pain Scale 4-6 (Moderate) Pantoprazole Sodium 40 mg 06/10/24 18:30 06/11/24 09:22 Pantoprazole 40 Mg Tablet PO 07/10/24 18:29 40 mg QDAY [facility] Administration Polyethylene Glycol 17 gm 06/07/24 09:00 06/11/24 09:22 Polyethylene Glycol 17 Gm Packet PO 07/07/24 08:59 17 gm QDAY [facility] Administration Sennosides 1 tab 06/06/24 09:15 06/06/24 09:47 Senna/Docusate Sod 1 Tab Tablet PO 07/06/24 09:14 1 tab QDAY PRN Administration CONSTIPATION Protocol Sennosides 1 tab 06/06/24 09:15 Senna Tablet PO 07/06/24 09:14 QDAY PRN CONSTIPATION Protocol Plan 49-year-old male IDDM, presents with generalized body pain and fever x 1 week Also endorsing bitemporal headache and dizziness upon standing, dysuria x 3 weeks. Initially admitted for sepsis in settings of influenza A and MSSA bacteremia. Lumbar MRI showed osteomyelitis of L3/L4 with possible abscess. Currently attempting transfer for neurological intervention. MSSA Bactermia Source likely osteomyelitis No skin lesions, pneumonia and pending MRI spine to rule out infective causes. Blood culture again showing MSSA. TTE and MARK both negative for vegetations. ID suspect pulmonary source. S/p VANCOMYCIN 06/05 to 06/09. Afebrile, cytosis improving. Blood culture from 06/09 showed GPC Repeat blood cultures sent Discontinued CEFTRIAXONE 2 mg (06/07 to) Started him on Cefazolin 2gm Q8hrs Repeat Blood cultures Pending ID reccs Osteomyelitis of L3/L4 vertebral bodies ? Early epidural abscess at L3/L4/L5 Lumbar MRI showed Osteomyelitis involving the L3 and L4 vertebral bodies, minimal posterior epidural enhancement at the L3, L4 and L5 levels suggestive of epidural abscess. Attempting transfer for neurological intervention, otherwise will continue with 6 weeks of IV ANTIBIOTICS. 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 Sepsis source improved bacteremia or pulmonary or psoas infectious process as seen on CT. Positive for influenza A. Will order QuantiFERON for latent TB considering psoas muscle inflammation which was undetermined. Repeat was ordered. ? TAMIFLU 75 mg BID (06/05 to) ?Discontinue CEFTRIAXONE 2 mg (06/07 to 06/11), started on Cefazolin 2gm Q8hr ? Continue GUAIFENESIN 200 mg QID ? Pending repeat blood culture, urine culture, QuantiFERON, PPD Transaminitis (improved) Worsening transaminitis with increasing AST ALT and total bili. Possibly 2/2 CEFTRIAXONE. However patient reports mild abdominal pain, not noted on exam but he is also on pain meds. Abdominal ultrasound showed fatty liver with primary hepatocellular disease, mild ascites, edematous kidney suggestive of UTI, cholelithiasis, but no cholecystitis. Abdominal pain improved. LFTs are downtrending. ? Daily CMP Cystitis UTI Patient endorsed dysuria for the past 3 weeks. We previously started CEFEPIME, METRONIDAZOLE for suspected psoas abscess which would also cover UTI. Currently asymptomatic. Urine cultures were negative, covering with antibiotics ? Final urine culture has been negative. Hyponatremia (improving) Hypochloremia- resolved Likely dehydrational. Admission sodium 129, currently 133 ? Daily CMP Insulin dependent Diabetes mellitus type 2 On INSULIN GLARGINE 15 units. A1C >14 this visit. Certainly needs glycemic control to aid with infection recovery. Glucose 300 today. We increased INSULIN as below. Home medication Insulin glargine 15U SC daily ? Continue glargine 18 units SH ? Continue LISPRO 5 units TID ? INSULIN sliding scale ? Accu-Cheks ? Diabetic education METHAMPHETAMINE withdrawal Active METH use Tobacco dependence Patient reported daily meth use since 1996, last used 2 days ago. U tox was positive. Currently experiencing withdrawal symptoms with agitation, generalized pain, tachycardia and fever. Patient has approximately 46-[id number] smoking history. Currently smokes 1 pack a day. U-Tox positive for METHAMPHETAMINE. ? Consulted on tobacco and METH cessation ? Continue LORAZEPAM 1 mg q.6h. PRN ? Continue NICOTINE patch 21 mg daily Hx of Dorsalgia -Lumbar MRI showed Osteomyelitis involving the L3 and L4 vertebral bodies, minimal posterior epidural enhancement at the L3, L4 and L5 levels suggestive of epidural abscess. ? Continue LIDOCAINE patches daily ? Continue home GABAPENTIN 300 mg daily Constipation Senna PRN Health maintenance Diet:Carb consistent GI prophylaxis: PROTONIX DVT prophylaxis: LOVENOX CODE STATUS: Full code Disposition: Pending blood cultures,pending Transfer Patient case was discussed with attending, MD Rogelio Wallace MD ,PGY- 3
[2024-06-11] MEDS: oxyCODONE/APAP 5/325 TABLET 1 TAB PO (16:52)
[2024-06-11] MEDS: INSULIN LISPRO (AdmeLOG) 1 UNIT/0.01 ML UNIT 5 UNIT SC (17:37)
--- NOTE | 2024-06-11 18:30 | PC.NURSE ---
Patient is tachycardic with HR of 124 per telemonitor. Patient is asleep on bed. MD notified and stated will put order in.
--- NOTE | 2024-06-11 18:31 | EKG_ITS ---
[facility] Test Date: 2024-06-11 Pat Name: ALEKSANDR PORTER Department: Room: S353-A Gender: Male Dna Analyst: CHARLY : 1975 Requested By: Rogelio Bauer Order Number: [id number] Reading MD: Rogelio Bauer Measurements Intervals [place] Rate: 115 P: 45 HI: 136 QRS: -33 QRSD: 97 T: 30 QT: 319 QTc: 443 Interpretive Statements SINUS TACHYCARDIA MARKED LEFT AXIS DEVIATION [QRS AXIS < -30] LOW QRS VOLTAGE IN PRECORDIAL LEADS [QRS DEFLECTION < 1.0 mV IN CHEST LEADS] S1-S2-S3 PATTERN, CONSISTENT WITH PULMONARY DISEASE, RVH, OR NORMAL VARIANT PATTERN CONSISTENT WITH PULMONARY DISEASE Compared to ECG 06/04/2024 16:54:58 Left-axis deviation now present Low QRS voltage now present Right ventricular hypertrophy now present /store/S0/[id number]/[id number]
[2024-06-11] MEDS: INSULIN GLARGINE (Lantus) 5 UNIT/0.05 ML (PER 5 UNITS) 18 UNIT SC (21:36)
[2024-06-12] VITALS (10 sets, daily range): BP systolic 100–123; BP diastolic 61–80; PULSE 66–110; RESP 15–96; TEMP 36.2–37.4; O2SAT 93–100
[2024-06-12] MEDS: oxyCODONE/APAP 5/325 TABLET 1 TAB PO ×2 (00:04→23:15)
[2024-06-12] MEDS: HYDROcodone/APAP 10/325 TAB PO ×5 (03:51→21:32)
[2024-06-12 05:18] LABS: Basophils # (Auto) 0.1 Thou/mm3 (0.0-0.2); Basophils % (Auto) 0 % (0-2.5); Eosinophils # (Auto) 0.2 Thou/mm3 (0.0-0.5); Eosinophils % (Auto) 1 % (0-10); Hematocrit 23.7 % (41.0-53.0); Immature Granulocytes % (Auto) 6 % (0-0); Immature Granulocytes Auto 1.35 Thou/mm3 (0.00-0.00); Lymphocytes # (Auto) 1.7 Thou/mm3 (1.0-4.8); Lymphocytes % (Auto) 8 % (10-50); Mean Corpuscular Hemoglobin 29.7 pg (25.0-35.0); Mean Corpuscular Volume 85 fL (80-100); Monocytes # (Auto) 1.1 Thou/mm3 (0.0-0.8); Monocytes % (Auto) 5 % (0-12); Neutrophils # (Auto) 16.8 Thou/mm3 (1.8-7.7); Neutrophils % (Auto) 79 % (37-80); Nucleated Red Blood Cell % 0 /100 WBC (0); Platelet Count 574 Thou/mm3 (140-440); RDW Standard Deviation 44.5 fL (35.1-43.9); Red Blood Count 2.79 Miln/mm3 (4.50-5.90); White Blood Count 21.2 Thou/mm3 (3.8-10.6)
[2024-06-12 05:19] LABS: Hemoglobin 8.3 g/dL (13.5-16.0)
[2024-06-12] MEDS: ceFAZolin/D5W 2 GM IV 2 GM/100 ML BAG IV ×3 (05:20→21:23)
[2024-06-12] MEDS: HEPARIN SOD INJ 5000 UNIT/ML VIAL SC ×3 (05:20→21:21)
[2024-06-12 06:05] LABS: Alanine Aminotransferase 32 U/L (10-49); Albumin/Globulin Ratio 0.8 (1.2-2.2); Alkaline Phosphatase 631 U/L (46-116); Anion Gap 7 (7-16); Aspartate Amino Transferase 37 U/L (0-34); BUN/Creatinine Ratio 10 Ratio (12-20); Bilirubin,Total 0.6 mg/dL (0.3-1.2); Blood Urea Nitrogen 9 mg/dL (9-23); Calcium 8.4 mg/dL (8.3-10.6); Calcium (Corrected) 9.2 mg/dL (8.5-10.1); Carbon Dioxide 27.7 mMol/L (20.0-31.0); Chloride 99 mMol/L (98-107); Creatinine (Component) 0.9 mg/dL (0.6-1.3); Estimated Creatinine Clearance 96.1 mL/min (>60); Globulin 3.6 gm/dL (2.3-3.5); Glucose 144 mg/dL (74-106); Osmolality,Calculated 269 (275-295); Sodium 134 mMol/L (136-145); Total Protein 6.6 gm/dL (5.7-8.2); eGFR > 60 See Note
--- NOTE | 2024-06-12 08:18 | PC.CM ---
Addendum entered by Inez Dawkins RN 06/12/24 12:22: 1222- Spoke to Danae at [facility], she states they are waiting for insurance authorization. She also gave and tax id [id number] Addendum entered by Pavithra Carter RN 06/12/24 10:33: 1032 call Sonia at [phone], left VM. 1029 received call from Lisa at [facility]. She stated she is off today and to call Sonia at [phone]. Addendum entered by Pavithra Carter RN 06/12/24 10:06: 1005 clinicals faxed to [facility] at [phone]. Addendum entered by Pavithra Carter RN 06/12/24 08:56: 0855 Call reference number for [facility] is [id number]. Addendum entered by Pavithra Carter RN 06/12/24 08:52: 0830 called [facility] at [phone], spoke to Sarath Kelly for insurance auth. She stated she submitted the form to for auth. She also stated to fax clinicals to [phone] to review and it will take 72 hours to process the auth. I informed her it's for inpatient transfer and it is urgent. She stated even for urgent transfers it takes upto 72 hours, that's the policy. Total call time 21 mins. Addendum entered by Pavithra Carter RN 06/12/24 08:25: 0825 I also emailed to Lisa at [email or web address] to get insurance auth. Addendum entered by Pavithra Carter RN 06/12/24 08:20: 0820 called Lisa at [phone] with [facility] to get auth and left VM. Original Note: 0816 called Chuy at [phone] with [facility] to get auth and left VM.
[2024-06-12] MEDS: GABAPENTIN 300 MG CAPSULE PO (08:29)
[2024-06-12] MEDS: PANTOPRAZOLE 40 MG TABLET PO (08:29)
[2024-06-12] MEDS: POLYETHYLENE GLYCOL 17 GM PACKET PO (08:29)
[2024-06-12] MEDS: LIDOCAINE 5% 1 PATCH TOP (08:30)
--- NOTE | 2024-06-12 09:03 | PC.SS ---
Follow up note: Pending transfer
--- NOTE | 2024-06-12 09:26 | PD.IDPROG ---
Subjective Subjective Interval history: hx as noted. more bc pos. 06/06 and 06/07. neg from 06/11 so far Exam Vital Signs Temp Pulse Resp BP Pulse Ox O2 Del Method O2 Flow Rate 97.2 F 90 18 100/61 96 Room Air 3 06/12/24 07:57 06/12/24 07:57 06/12/24 07:57 06/12/24 07:57 06/12/24 07:57 06/12/24 07:57 06/12/24 04:00 Narrative Exam bacteremia with staph aureus, limited visit Objective - Internal Medicine Labs 06/12/24 04:25 06/12/24 04:25 Labs: Laboratory Results - last 24 hr 06/05/24 06/12/24 05:08 04:25 WBC 21.2 H RBC 2.79 L Hgb 8.3 L Hct 23.7 L MCV 85 MCH 29.7 MCHC 35.0 RDW Std Deviation 44.5 H Plt Count 574 H D Neut % (Auto) 79 Lymph % (Auto) 8 L [place] % (Auto) 5 Eos % (Auto) 1 Baso % (Auto) 0 Neut # (Auto) 16.8 H Lymph # (Auto) 1.7 [place] # (Auto) 1.1 H Eos # (Auto) 0.2 Baso # (Auto) 0.1 Immature Gran # (Auto) 1.35 H Absolute Nucleated RBC 0.00 Immature Gran % 6 H Nucleated RBC % 0 Sodium 134 L Potassium 4.0 D Chloride 99 Carbon Dioxide 27.7 Anion Gap 7 BUN 9 Creatinine 0.9 Estim Creat Clear Calc 96.1 eGFR > 60 BUN/Creatinine Ratio 10 L Glucose 144 H Calculated Osmolality 269 L Calcium 8.4 Corrected Calcium 9.2 Total Bilirubin 0.6 AST 37 H ALT 32 Alkaline Phosphatase 631 H D Total Protein 6.6 Albumin 3.0 L Globulin 3.6 H Albumin/Globulin Ratio 0.8 L Misc Test Result See Jan Rpt Assessment & Plan A&P Narrative bacteremia. mssa bc pos 06/05 and 06/07. neg so far from 06/11 hx of pos flu but do not see pos test in labs. dm II, a1c hx of psoas syndrome and L testicular orchitis with varicocele prior hiv and hep c neg in october 2023 appears to be bc pos on f/u 06/07. TTE also neg. source likely pulmonary with hx will check in again on wed if bc neg at 48h, then ok for rocephin 2 gm iv daily for 2 weeks from first neg bc with weekly cbc, renal panel, esr and line removal at end of rx Time Spent With Patient Time: Total time spent is greater than 50% in coordination of care (as documented) at patient's floor/unit and/or counseling patient:
--- NOTE | 2024-06-12 09:38 | ESPR_ITS ---
<Statement entered by Anna Eastman MD - 06/18/24 16:26> I reviewed above note and agree with findings and plans. I have also personally examined the patient with medicine team and went over assessment and plan with medical team including public relations intern and resident physician. Documentation for date of: 06/12/24 Subjective Subjective Interval history: No acute overnight events. Pain appears controlled with current regimen. No new symptoms or worsening of symptoms. Denies fever, chills, headaches, chest pain, sob, cough, GI or urinary symptoms. Currently pending auth for transfer to [facility] for neurological intervention. Exam Vital Signs Temp Pulse Resp BP Pulse Ox O2 Del Method O2 Flow Rate 97.2 F 90 18 100/61 96 Room Air 3 06/12/24 07:57 06/12/24 07:57 06/12/24 07:57 06/12/24 07:57 06/12/24 07:57 06/12/24 07:57 06/12/24 04:00 Narrative Exam GENERAL: Comfortable adult seen resting comfortably in hospital bed,Mild distress VITALS: All vitals were reviewed and the pulse ox is 98% on room air HEENT: Normocephalic, atraumatic. Pupils are equal and reactive. Oral mucosa is moist. GENERAL * Normal appearing, no apparent distress. HEENT * NCAT.?TETO. Oral mucosa is moist. Patent Nares NECK * Supple, nontender, no thyromegaly, no meningismus, no JVD, no step offs CHEST * RRR, no m/g/r * CTAB, no w/r/r. Symmetrical chest rise. No intercostal subcostal retraction * Atraumatic, nontender, no crepitus, symmetrical expansion. ABDOMEN * Soft, flat, nontender. No guarding/rebound tenderness/masses. * Bowel sounds presents * Right hip improving. EXTREMITIES * Nontender, no cyanosis, no edema * No edema/cyanosis.? * Small skin lesion of right elbow, tender to palpation, signs of dried discharge on skin, no active discharge. SKIN * Warm and dry, no jaundice/rashes. NEUROMUSCULAR * No lumbar or midline, no CVA, no paraspinal muscle spasm or tenderness. * Moves all 4 extremities well, with full ROM and good CSM. * HEATH x4, CN II-XII grossly intact. * No focal neurologic deficits. PSYCHIATRY * Normal mood and affect, cooperative, no SI or HI or hallucinations. Objective Labs 06/12/24 04:25 06/12/24 04:25 Labs: Laboratory Results - last 24 hr 06/05/24 06/12/24 05:08 04:25 WBC 21.2 H RBC 2.79 L Hgb 8.3 L Hct 23.7 L MCV 85 MCH 29.7 MCHC 35.0 RDW Std Deviation 44.5 H Plt Count 574 H D Neut % (Auto) 79 Lymph % (Auto) 8 L [place] % (Auto) 5 Eos % (Auto) 1 Baso % (Auto) 0 Neut # (Auto) 16.8 H Lymph # (Auto) 1.7 [place] # (Auto) 1.1 H Eos # (Auto) 0.2 Baso # (Auto) 0.1 Immature Gran # (Auto) 1.35 H Absolute Nucleated RBC 0.00 Immature Gran % 6 H Nucleated RBC % 0 Sodium 134 L Potassium 4.0 D Chloride 99 Carbon Dioxide 27.7 Anion Gap 7 BUN 9 Creatinine 0.9 Estim Creat Clear Calc 96.1 eGFR > 60 BUN/Creatinine Ratio 10 L Glucose 144 H Calculated Osmolality 269 L Calcium 8.4 Corrected Calcium 9.2 Total Bilirubin 0.6 AST 37 H ALT 32 Alkaline Phosphatase 631 H D Total Protein 6.6 Albumin 3.0 L Globulin 3.6 H Albumin/Globulin Ratio 0.8 L Misc Test Result See Sep Rpt Quality Measures Quality Measures none Assessment & Plan Assessment Current Active Medications: Generic Name Dose Route Start Last Admin Trade Name Freq PRN Reason Stop Dose Admin Acetaminophen 650 mg 06/04/24 19:42 06/10/24 18:00 Acetaminophen 325 Mg Tablet PO 07/04/24 19:41 650 mg Q6H PRN Administration Fever >101.5 Acetaminophen 650 mg 06/10/24 12:48 Acetaminophen 325 Mg Tablet PO 07/10/24 12:47 Q4HR PRN Pain Scale 1-3 (Mild) Hydrocodone Bitart/Acetaminophen 1 tab 06/10/24 12:50 06/12/24 08:29 Hydrocodone/Apap 10/325 Tab PO 06/15/24 12:49 1 tab Q4HR PRN Administration Pain Scale 7-10 (Severe) Dextrose 25 ml 06/04/24 19:49 Dextrose 50%-Water Inj 50 Ml Syringe IV 07/04/24 19:48 Q15MIN PRN BG 50-70 responsive npo pt Dextrose 50 ml 06/04/24 19:49 Dextrose 50%-Water Inj 50 Ml Syringe IV 07/04/24 19:48 Q15MIN PRN BG <50 OR BG <70 & pt unresponsive Gabapentin 300 mg 06/06/24 11:15 06/12/24 08:29 Gabapentin 300 Mg Capsule PO 07/06/24 11:14 300 mg QDAY WARD Administration Glucagon 1 mg 06/04/24 19:49 Glucagon Inj 1 Mg Vial IM Q15MIN PRN BG <70, and no IV access Glycerin 1 each 06/10/24 08:49 Glycerin, Adult 1 Ea Supp NV 07/10/24 08:48 QDAY PRN CONSTIPATION Guaifenesin 200 mg 06/04/24 20:53 06/11/24 16:52 Guaifenesin Syrup 200 Mg/10 Ml Udc PO 07/04/24 20:52 200 mg QID PRN Administration COUGH OR CONGESTION Protocol Heparin Sodium (Porcine) 5,000 unit 06/11/24 09:00 06/12/24 05:20 Heparin Sod Inj 5000 Unit/Ml Vial SC 06/25/24 08:59 5,000 unit Q8HR WARD Administration Cefazolin Sodium 2 gm in 100 mls @ 100 mls/hr 06/11/24 10:38 06/12/24 05:20 Ancef 2gm Ivpb IV 06/18/24 10:37 100 mls/hr Q8HR WARD Administration Insulin Glargine 18 unit 06/08/24 21:00 06/11/24 21:36 Insulin Glargine (Lantus) 5 Unit/0.05 Ml (Per 5 Units) SC 07/08/24 20:59 18 unit HS WARD Administration Insulin Human Lispro 5 unit 06/09/24 08:00 06/12/24 07:57 Insulin Lispro (Admelog) 1 Unit/0.01 Ml Unit SC 07/09/24 07:59 Not Given TIDWM WARD Insulin Human Lispro 0 unit 06/11/24 21:00 06/12/24 07:52 Insulin Lispro (Admelog) 1 Unit/0.01 Ml Unit SC 07/11/24 20:59 Not Given ACHS [facility] Protocol Lidocaine 1 patch 06/09/24 09:00 06/12/24 08:30 Lidocaine 5% 1 Patch TOP 07/09/24 08:59 1 patch DAILY WARD Administration Lorazepam 1 mg 06/07/24 16:54 06/09/24 20:08 Lorazepam 0.5 Mg Tablet PO 06/12/24 16:53 1 mg Q6H PRN Administration Meth withdrawal Naloxegol 25 mg 06/12/24 09:00 Naloxegol Oxalate 25 Mg Tablet (Non-Formulary) PO 06/14/24 08:59 QDAY WARD Nicotine 21 mg 06/05/24 09:00 06/12/24 08:29 Nicotine Patch 21 Mg/24 Hr Patch.Td24 TOP 07/05/24 08:59 Not Given QDAY WARD Oxycodone/Acetaminophen 1 tab 06/10/24 12:50 06/12/24 00:04 Oxycodone/Apap 5/325 Tablet PO 06/15/24 12:49 1 tab Q6H PRN Administration Pain Scale 4-6 (Moderate) Pantoprazole Sodium 40 mg 06/10/24 18:30 06/12/24 08:29 Pantoprazole 40 Mg Tablet PO 07/10/24 18:29 40 mg QDAY WARD Administration Polyethylene Glycol 17 gm 06/07/24 09:00 06/12/24 08:29 Polyethylene Glycol 17 Gm Packet PO 07/07/24 08:59 17 gm QDAY WARD Administration Sennosides 1 tab 06/06/24 09:15 06/06/24 09:47 Senna/Docusate Sod 1 Tab Tablet PO 07/06/24 09:14 1 tab QDAY PRN Administration CONSTIPATION Protocol Sennosides 1 tab 06/12/24 09:00 Senna Tablet PO 07/12/24 08:59 BID WARD Protocol Plan 49-year-old male IDDM, presents with generalized body pain and fever x 1 week Also endorsing bitemporal headache and dizziness upon standing, dysuria x 3 weeks. Initially admitted for sepsis in settings of influenza A and MSSA bacteremia. Lumbar MRI showed osteomyelitis of L3/L4 with possible abscess. Currently attempting transfer for neurological intervention. Blood culture from 06/09 again growing GPC. MSSA Bactermia Source likely osteomyelitis No skin lesions, pneumonia and pending MRI spine to rule out infective causes. Blood culture again showing MSSA. TTE and MARK both negative for vegetations. ID suspect pulmonary source. S/p VANCOMYCIN 06/05 to 06/09. Afebrile, cytosis improving. Blood culture from 06/09 showed GPC Repeat blood cultures sent Discontinued CEFTRIAXONE 2 mg (06/07 to) Considering other associated bacteremia, including ?right elbow osteo/abscess for which MRI was ordered. ? Started him on Cefazolin 2gm Q8hrs ? Repeat Blood cultures ? Pending MRI right elbow. Osteomyelitis of L3/L4 vertebral bodies ? Early epidural abscess at L3/L4/L5 Lumbar MRI showed Osteomyelitis involving the L3 and L4 vertebral bodies, minimal posterior epidural enhancement at the L3, L4 and L5 levels suggestive of epidural abscess. Attempting transfer for neurological intervention, otherwise will continue with 6 weeks of IV ANTIBIOTICS. ? 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 Sepsis source improved bacteremia or pulmonary or psoas infectious process as seen on CT. Positive for influenza A. Will order QuantiFERON for latent TB considering psoas muscle inflammation which was undetermined. Completed TAMIFLU therapy. ? Continue ANTIBIOTICS as above ? Continue GUAIFENESIN 200 mg QID ? Pending repeat blood culture, urine culture, QuantiFERON, PPD Transaminitis (improved) Worsening transaminitis with increasing AST ALT and total bili. Possibly 2/2 CEFTRIAXONE. However patient reports mild abdominal pain, not noted on exam but he is also on pain meds. Abdominal ultrasound showed fatty liver with primary hepatocellular disease, mild ascites, edematous kidney suggestive of UTI, cholelithiasis, but no cholecystitis. Abdominal pain improved. LFTs are downtrending. ? Daily CMP Cystitis UTI Patient endorsed dysuria for the past 3 weeks. We previously started CEFEPIME, METRONIDAZOLE for suspected psoas abscess which would also cover UTI. Currently asymptomatic. Urine cultures were negative, covering with antibiotics ? Final urine culture has been negative. Hyponatremia (stable) Hypochloremia (resolved) Likely dehydrational. Admission sodium 129, currently 133 ? Daily CMP T2DM, insulin-dependent On INSULIN GLARGINE 15 units. A1C >14 this visit. Certainly needs glycemic control to aid with infection recovery. Blood sugars difficult to control. Home medication Insulin glargine 15U SC daily ? Continue glargine 15 units SH ? Continue LISPRO 3 units TID ? INSULIN sliding scale ? Accu-Cheks ? Diabetic education done METHAMPHETAMINE withdrawal Active METH use Tobacco dependence Patient reported daily meth use since 1996, last used 2 days ago. U tox was positive. Currently experiencing withdrawal symptoms with agitation, generalized pain, tachycardia and fever. Patient has approximately [id number] smoking history. Currently smokes 1 pack a day. U-Tox positive for METHAMPHETAMINE. ? Consulted on tobacco and METH cessation ? Continue LORAZEPAM 1 mg q.6h. PRN ? Continue NICOTINE patch 21 mg daily Hx of Dorsalgia -Lumbar MRI showed Osteomyelitis involving the L3 and L4 vertebral bodies, minimal posterior epidural enhancement at the L3, L4 and L5 levels suggestive of epidural abscess. ? Continue LIDOCAINE patches daily ? Continue home GABAPENTIN 300 mg daily Constipation Likely 2/2 OPIOID and being bedbound. ? Started MOVANTIK 25 mg daily ? Multiple bowel regimen ? Added LACTULOSE 60 mg x1 Health maintenance Diet:Carb consistent GI prophylaxis: PROTONIX DVT prophylaxis: LOVENOX Antibiotics: CEFAZOLIN CODE STATUS: Full code Disposition: Pending blood cultures, pending Transfer Patient case was discussed with attending, Dr. Anna Eastman MD and senior residents Dr. Bauer and Dr. Howell. Linnea Swann, DO PGYI Senior Resident Attestation: The patient is a 49-year-old male with uncontrolled diabetes mellitus, presented with generalized body pain and fever for 1 week and was found to have MSSA bacteremia likely secondary to sepsis secondary to left psoas infective myositis vs right elbow effusion. The patient reported that he continues to have lower back pain. His vitals were fairly stable saturating 94 to 95% on 2 L NC. White count mildly trended up to 21.2. Blood culture preliminary came back negative. MARK negative for any vegation, MRI right elbow significant for early effusion. Transfer to spinal surgery center is pending. We will continue with insulin glargine 18 units at bedtime, insulin lispro 5 units 3 times daily with meals, and SSI lispro moderate scale. COntinue with cefazoline 2g TID, and continue with pain meds as needed. The patient seems to be having methamphetamine withdrawal, and is on as needed lorazepam 1 mg every 6 hourly as needed. And we will continue with his other home medications. I discussed with and supervised the public relations intern physician involved in the care of this patient. I personally saw and examined the patient and discussed the assessment and plan with the entire medicine team, including my attending. I agree with the assessment and plan as documented above. Piotr Howell MD PGY2 Internal Medicine
[2024-06-12] MEDS: GLYCERIN, ADULT 1 EA SUPP 1 EACH PR (09:40)
[2024-06-12] MEDS: NALOXEGOL OXALATE 25 MG TABLET (NON-FORMULARY) PO (09:40)
[2024-06-12] MEDS: SENNA TABLET 1 TAB PO ×2 (09:40→21:23)
--- NOTE | 2024-06-12 09:43 | ESPR_ITS ---
Subjective Subjective Interval history: see resident note and intervening data. note neg heather Exam Vital Signs Temp Pulse Resp BP Pulse Ox O2 Del Method O2 Flow Rate 97.2 F 90 18 100/61 96 Room Air 3 06/12/24 07:57 06/12/24 07:57 06/12/24 07:57 06/12/24 07:57 06/12/24 07:57 06/12/24 07:57 06/12/24 04:00 Narrative Exam limited visit today Objective - Internal Medicine Labs 06/12/24 04:25 06/12/24 04:25 Labs: Laboratory Results - last 24 hr 06/05/24 06/12/24 05:08 04:25 WBC 21.2 H RBC 2.79 L Hgb 8.3 L Hct 23.7 L MCV 85 MCH 29.7 MCHC 35.0 RDW Std Deviation 44.5 H Plt Count 574 H D Neut % (Auto) 79 Lymph % (Auto) 8 L [place] % (Auto) 5 Eos % (Auto) 1 Baso % (Auto) 0 Neut # (Auto) 16.8 H Lymph # (Auto) 1.7 [place] # (Auto) 1.1 H Eos # (Auto) 0.2 Baso # (Auto) 0.1 Immature Gran # (Auto) 1.35 H Absolute Nucleated RBC 0.00 Immature Gran % 6 H Nucleated RBC % 0 Sodium 134 L Potassium 4.0 D Chloride 99 Carbon Dioxide 27.7 Anion Gap 7 BUN 9 Creatinine 0.9 Estim Creat Clear Calc 96.1 eGFR > 60 BUN/Creatinine Ratio 10 L Glucose 144 H Calculated Osmolality 269 L Calcium 8.4 Corrected Calcium 9.2 Total Bilirubin 0.6 AST 37 H ALT 32 Alkaline Phosphatase 631 H D Total Protein 6.6 Albumin 3.0 L Globulin 3.6 H Albumin/Globulin Ratio 0.8 L Misc Test Result See Jan Rpt Assessment & Plan A&P Narrative bacteremia. mssa bc pos 06/05 and 06/07. neg so far from 06/11 hx of pos flu but do not see pos test in labs. dm II, a1c hx of psoas syndrome and L testicular orchitis with varicocele prior hiv and hep c neg in october 2023 appears to be bc pos on f/u 06/07. HEATHER and TTE neg. source likely pulmonary with hx. concerns re elbow and back noted will check in again on wed if bc neg at 48h, then ok for rocephin 2 gm iv daily for 6 weeks from first neg bc with weekly cbc, renal panel, esr and line removal at end of rx Time Spent With Patient Time: Total time spent is greater than 50% in coordination of care (as documented) at patient's floor/unit and/or counseling patient:
[2024-06-12 12:02] LABS: OBS Card Lot # 22002; OBS Developer Lot # 23003; OBS Performed By herns4; OBS QC OK? Yes; Occult Blood, Stool Negative (Negative)
--- NOTE | 2024-06-12 13:39 | XR_ITS ---
Examination: MRI right elbow, without contrast Date and time of exam: June 12, 2024 2012 hrs. Indications: Soft tissue swelling involving the elbow Technique: Multiple axial sagittal and coronal images of the right elbow have been obtained with the Siemens high-resolution 1.5 Mana MRI scanner. Images obtained include T2-weighted fat-suppressed sagittal sections, TR 3500, TE 46, T2 weighted coronal fat suppressed images, TR 3050, TE 84, T2-weighted transverse fat suppressed images, TR 3260, TE 63, proton density transverse images, TR 4720 TE 46, and T1 weighted coronal images, TR 560, TE 13. Findings: Although the images are severely degraded by patient motion Small elbow effusion No occult fracture Soft tissue abscess is not depicted Negative for osteomyelitis Impression: Although the images are severely degraded by continual patient motion Consider CT scan elbow post intravenous contrast follow-up, shortness 10 times
[2024-06-12] MEDS: LACTULOSE SYRUP 20 GM/30 ML UDC 30 GM PO ×2 (14:27→15:17)
[2024-06-12] MEDS: LORazepam 0.5 MG TABLET 1 MG PO (16:19)
[2024-06-12] MEDS: INSULIN LISPRO (AdmeLOG) 1 UNIT/0.01 ML UNIT 5 UNIT SC (17:10)
[2024-06-12] MEDS: INSULIN GLARGINE (Lantus) 5 UNIT/0.05 ML (PER 5 UNITS) 18 UNIT SC (21:21)
[2024-06-12] MEDS: INSULIN LISPRO (AdmeLOG) 1 UNIT/0.01 ML UNIT SC (21:22)
[2024-06-13] VITALS (9 sets, daily range): BP systolic 98–130; BP diastolic 59–82; PULSE 76–118; RESP 12–24; TEMP 36.2–37.7; O2SAT 92–96
[2024-06-13] MEDS: LORazepam 0.5 MG TABLET 1 MG PO (00:26)
[2024-06-13] MEDS: HYDROcodone/APAP 10/325 TAB PO ×4 (04:34→23:47)
[2024-06-13] MEDS: ceFAZolin/D5W 2 GM IV 2 GM/100 ML BAG IV ×3 (05:35→21:51)
[2024-06-13] MEDS: HEPARIN SOD INJ 5000 UNIT/ML VIAL SC ×3 (05:35→21:51)
[2024-06-13 06:08] LABS: Basophils # (Auto) 0.1 Thou/mm3 (0.0-0.2); Basophils % (Auto) 0 % (0-2.5); Eosinophils # (Auto) 0.2 Thou/mm3 (0.0-0.5); Eosinophils % (Auto) 1 % (0-10); Hematocrit 24.9 % (41.0-53.0); Immature Granulocytes % (Auto) 5 % (0-0); Lymphocytes # (Auto) 1.5 Thou/mm3 (1.0-4.8); Lymphocytes % (Auto) 8 % (10-50); Mean Corpuscular HGB Conc 33.3 g/dl (31.0-37.0); Mean Corpuscular Hemoglobin 28.1 pg (25.0-35.0); Mean Corpuscular Volume 84 fL (80-100); Monocytes # (Auto) 1.2 Thou/mm3 (0.0-0.8); Monocytes % (Auto) 6 % (0-12); Neutrophils # (Auto) 15.4 Thou/mm3 (1.8-7.7); Neutrophils % (Auto) 80 % (37-80); Nucleated Red Blood Cell % 0 /100 WBC (0); Platelet Count 781 Thou/mm3 (140-440); RDW Standard Deviation 43.8 fL (35.1-43.9); Red Blood Count 2.95 Miln/mm3 (4.50-5.90); White Blood Count 19.3 Thou/mm3 (3.8-10.6)
[2024-06-13 06:18] LABS: Hemoglobin 8.3 g/dL (13.5-16.0)
[2024-06-13 06:57] LABS: Alanine Aminotransferase 25 U/L (10-49); Albumin, Serum 3.2 gm/dL (3.5-5.0); Albumin/Globulin Ratio 0.8 (1.2-2.2); Alkaline Phosphatase 597 U/L (46-116); Anion Gap 6 (7-16); Aspartate Amino Transferase 35 U/L (0-34); BUN/Creatinine Ratio 9 Ratio (12-20); Bilirubin,Total 0.6 mg/dL (0.3-1.2); Blood Urea Nitrogen 7 mg/dL (9-23); Calcium 8.6 mg/dL (8.3-10.6); Calcium (Corrected) 9.2 mg/dL (8.5-10.1); Carbon Dioxide 28.9 mMol/L (20.0-31.0); Chloride 97 mMol/L (98-107); Creatinine (Component) 0.8 mg/dL (0.6-1.3); Estimated Creatinine Clearance 108.1 mL/min (>60); Globulin 3.9 gm/dL (2.3-3.5); Glucose 135 mg/dL (74-106); Osmolality,Calculated 264 (275-295); Potassium 3.9 mMol/L (3.4-5.1); Sodium 132 mMol/L (136-145); Total Protein 7.1 gm/dL (5.7-8.2); eGFR > 60 See Note
--- NOTE | 2024-06-13 07:34 | PC.CM ---
Addendum entered by Pavithra Carter RN 06/13/24 19:54: 1954 transfer packet is complete with [address] john, pending pt signature. Addendum entered by Pavithra Carter RN 06/13/24 15:40: 1535 received call from Violet. I gave her updated clinicals. She stated pt is accepted at [facility], accepted by [facility] Now waiting for bed. Addendum entered by Pavithra Carter RN 06/13/24 14:47: 1447 called [facility], spoke to Jaclyn and informed that auth has been received. She stated she is busy with stat calls and will call me back. Addendum entered by Pavithra Carter RN 06/13/24 14:44: 1444 received fax from [facility] for insurance auth. Addendum entered by Pavithra Carter RN 06/13/24 14:40: 1438 received call from Shy with [facility]. She stated the auth is given for transferring the pt to [facility]. She asked me fax number in order to fax the auth approval. I proved her with my fax and [facility] fax number. Addendum entered by Pavithra Carter RN 06/13/24 13:32: 1325 received call from Renita organizational development manager with [facility]. She sated nurse is reviewing the clinicals and give me a call when auth is ready and she confirmed it will be today. Addendum entered by Pavithra Carter RN 06/13/24 11:08: 1108 called Renita organizational development manager at [facility] # [phone]. Left VM. Addendum entered by Pavithra Carter RN 06/13/24 11:03: 1057 Received call from Lisa with [facility]. She stated she is not in office today. But to call Sonia at [phone]. I informed her that I did call Sonai yesterday and haven't received any call yet. She stated Sonia will be in this afternoon. But I can Renita organizational development manager at [phone]. She also stated [facility] is a contracted facility with [facility] and shouldn't require auth. Addendum entered by Pavithra Carter RN 06/13/24 08:11: 0810 called Lisa with [employer] at [phone], left VM. Original Note: [id number] I emailed Lisa at [email or web address] to see if she can escalate the auth process. I call provided her the call ref# with [employer] from yesterday which is [id number].
[2024-06-13] MEDS: INSULIN LISPRO (AdmeLOG) 1 UNIT/0.01 ML UNIT SC ×2 (07:59→16:32)
[2024-06-13] MEDS: oxyCODONE/APAP 5/325 TABLET 1 TAB PO ×2 (07:59→14:56)
[2024-06-13] MEDS: INSULIN LISPRO (AdmeLOG) 1 UNIT/0.01 ML UNIT 5 UNIT SC ×2 (07:59→16:31)
[2024-06-13] MEDS: LIDOCAINE 5% 1 PATCH TOP (08:48)
[2024-06-13] MEDS: SENNA TABLET 1 TAB PO ×2 (08:49→20:14)
[2024-06-13] MEDS: NALOXEGOL OXALATE 25 MG TABLET (NON-FORMULARY) PO (08:49)
[2024-06-13] MEDS: GABAPENTIN 300 MG CAPSULE PO (08:49)
[2024-06-13] MEDS: POLYETHYLENE GLYCOL 17 GM PACKET PO (08:49)
[2024-06-13] MEDS: PANTOPRAZOLE 40 MG TABLET PO (08:49)
--- NOTE | 2024-06-13 09:10 | ESPR_ITS ---
<Statement entered by Anna Eastman MD - 06/24/24 13:36> I reviewed above note and agree with findings and plans. I have also personally examined the patient with medicine team and went over assessment and plan with medical team including human resource intern and resident physician. Documentation for date of: 06/13/24 Subjective Subjective Interval history: No acute overnight events. Reports improvement of pain overall. Had small bowel movement yesterday. Denies fever, chills, headaches, chest pain, sob, cough, GI or urinary symptoms. Exam Vital Signs Temp Pulse Resp BP Pulse Ox O2 Del Method O2 Flow Rate 97.1 F 102 H 18 124/79 94 L Room Air 1 06/13/24 07:59 06/13/24 07:59 06/13/24 07:59 06/13/24 07:59 06/13/24 07:59 06/13/24 07:59 06/13/24 04:03 Narrative Exam GENERAL * Normal appearing, no apparent distress. HEENT * NCAT.?TETO. Oral mucosa is moist. Patent Nares NECK * Supple, nontender, no thyromegaly, no meningismus, no JVD, no step offs CHEST * RRR, no m/g/r * CTAB, no w/r/r. Symmetrical chest rise. No intercostal subcostal retraction * Atraumatic, nontender, no crepitus, symmetrical expansion. ABDOMEN * Soft, flat, nontender. No guarding/rebound tenderness/masses. * Bowel sounds presents * Right hip improving. EXTREMITIES * Nontender, no cyanosis, no edema * No edema/cyanosis.? * Small skin lesion of right elbow, tender to palpation, signs of dried discharge on skin, no active discharge. SKIN * Warm and dry, no jaundice/rashes. NEUROMUSCULAR * No lumbar or midline, no CVA, no paraspinal muscle spasm or tenderness. * Moves all 4 extremities well, with full ROM and good CSM. * HEATH x4, CN II-XII grossly intact. * No focal neurologic deficits. PSYCHIATRY * Normal mood and affect, cooperative, no SI or HI or hallucinations. Objective Labs 06/14/24 04:50 06/14/24 04:50 Labs: Laboratory Results - last 24 hr 06/12/24 06/13/24 11:00 05:55 WBC 19.3 H RBC 2.95 L Hgb 8.3 L Hct 24.9 L MCV 84 MCH 28.1 MCHC 33.3 RDW Std Deviation 43.8 Plt Count 781 H D Neut % (Auto) 80 Lymph % (Auto) 8 L Mccone % (Auto) 6 Eos % (Auto) 1 Baso % (Auto) 0 Neut # (Auto) 15.4 H Lymph # (Auto) 1.5 Mccone # (Auto) 1.2 H Eos # (Auto) 0.2 Baso # (Auto) 0.1 Immature Gran # (Auto) 0.90 H Absolute Nucleated RBC 0.00 Immature Gran % 5 H Nucleated RBC % 0 Sodium 132 L Potassium 3.9 Chloride 97 L Carbon Dioxide 28.9 Anion Gap 6 L BUN 7 L Creatinine 0.8 Estim Creat Clear Calc 108.1 eGFR > 60 BUN/Creatinine Ratio 9 L Glucose 135 H Calculated Osmolality 264 L Calcium 8.6 Corrected Calcium 9.2 Total Bilirubin 0.6 AST 35 H ALT 25 Alkaline Phosphatase 597 H D Total Protein 7.1 Albumin 3.2 L Globulin 3.9 H Albumin/Globulin Ratio 0.8 L Stool Occult Blood Negative Quality Measures Quality Measures none Assessment & Plan Assessment Current Active Medications: Generic Name Dose Route Start Last Admin Trade Name Freq PRN Reason Stop Dose Admin Acetaminophen 650 mg 06/04/24 19:42 06/10/24 18:00 Acetaminophen 325 Mg Tablet PO 07/04/24 19:41 650 mg Q6H PRN Administration Fever >101.5 Acetaminophen 650 mg 06/10/24 12:48 Acetaminophen 325 Mg Tablet PO 07/10/24 12:47 Q4HR PRN Pain Scale 1-3 (Mild) Hydrocodone Bitart/Acetaminophen 1 tab 06/10/24 12:50 06/13/24 04:34 Hydrocodone/Apap 10/325 Tab PO 06/15/24 12:49 1 tab Q4HR PRN Administration Pain Scale 7-10 (Severe) Dextrose 25 ml 06/04/24 19:49 Dextrose 50%-Water Inj 50 Ml Syringe IV 07/04/24 19:48 Q15MIN PRN BG 50-70 responsive npo pt Dextrose 50 ml 06/04/24 19:49 Dextrose 50%-Water Inj 50 Ml Syringe IV 07/04/24 19:48 Q15MIN PRN BG <50 OR BG <70 & pt unresponsive Gabapentin 300 mg 06/06/24 11:15 06/13/24 08:49 Gabapentin 300 Mg Capsule PO 07/06/24 11:14 300 mg QDAY WARD Administration Glucagon 1 mg 06/04/24 19:49 Glucagon Inj 1 Mg Vial IM Q15MIN PRN BG <70, and no IV access Glycerin 1 each 06/10/24 08:49 Glycerin, Adult 1 Ea Supp [place] 07/10/24 08:48 QDAY PRN CONSTIPATION Protocol Guaifenesin 200 mg 06/04/24 20:53 06/11/24 16:52 Guaifenesin Syrup 200 Mg/10 Ml Udc PO 07/04/24 20:52 200 mg QID PRN Administration COUGH OR CONGESTION Protocol Heparin Sodium (Porcine) 5,000 unit 06/11/24 09:00 06/13/24 05:35 Heparin Sod Inj 5000 Unit/Ml Vial SC 06/25/24 08:59 5,000 unit Q8HR WARD Administration Cefazolin Sodium 2 gm in 100 mls @ 100 mls/hr 06/11/24 10:38 06/13/24 05:35 Ancef 2gm Ivpb IV 06/18/24 10:37 100 mls/hr Q8HR WARD Administration Insulin Glargine 18 unit 06/08/24 21:00 06/12/24 21:21 Insulin Glargine (Lantus) 5 Unit/0.05 Ml (Per 5 Units) SC 07/08/24 20:59 18 unit HS WARD Administration Insulin Human Lispro 5 unit 06/09/24 08:00 06/13/24 07:59 Insulin Lispro (Admelog) 1 Unit/0.01 Ml Unit SC 07/09/24 07:59 5 unit TIDWM WARD Administration Insulin Human Lispro 0 unit 06/11/24 21:00 06/13/24 07:59 Insulin Lispro (Admelog) 1 Unit/0.01 Ml Unit SC 07/11/24 20:59 2 unit ACHS WARD Administration Protocol Lidocaine 1 patch 06/09/24 09:00 06/13/24 08:48 Lidocaine 5% 1 Patch TOP 07/09/24 08:59 1 patch DAILY WARD Administration Lorazepam 1 mg 06/12/24 17:22 06/13/24 00:26 Lorazepam 0.5 Mg Tablet PO 06/17/24 17:21 1 mg Q6HR PRN Administration meth withdrawl Naloxegol 25 mg 06/12/24 09:00 06/13/24 08:49 Naloxegol Oxalate 25 Mg Tablet (Non-Formulary) PO 06/14/24 08:59 25 mg QDAY WARD Administration Nicotine 21 mg 06/05/24 09:00 06/13/24 08:56 Nicotine Patch 21 Mg/24 Hr Patch.Td24 TOP 07/05/24 08:59 Not Given QDAY WARD Oxycodone/Acetaminophen 1 tab 06/10/24 12:50 06/13/24 07:59 Oxycodone/Apap 5/325 Tablet PO 06/15/24 12:49 1 tab Q6H PRN Administration Pain Scale 4-6 (Moderate) Pantoprazole Sodium 40 mg 06/10/24 18:30 06/13/24 08:49 Pantoprazole 40 Mg Tablet PO 07/10/24 18:29 40 mg QDAY WARD Administration Polyethylene Glycol 17 gm 06/07/24 09:00 06/13/24 08:49 Polyethylene Glycol 17 Gm Packet PO 07/07/24 08:59 17 gm QDAY WARD Administration Sennosides 1 tab 06/06/24 09:15 06/06/24 09:47 Senna/Docusate Sod 1 Tab Tablet PO 07/06/24 09:14 1 tab QDAY PRN Administration CONSTIPATION Protocol Sennosides 1 tab 06/12/24 09:00 06/13/24 08:49 Senna Tablet PO 07/12/24 08:59 1 tab BID WARD Administration Protocol Plan 49-year-old male IDDM, presents with generalized body pain and fever x 1 week Also endorsing bitemporal headache and dizziness upon standing, dysuria x 3 weeks. Initially admitted for sepsis in settings of influenza A and MSSA bacteremia. Lumbar MRI showed osteomyelitis of L3/L4 with possible abscess. Repeat 48-hour blood culture showing no growth. Currently pending insurance approval for neurological intervention transfer. 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 Early epidural abscess at L3/L4/L5 Influenza A MSSA bacteremia (resolved) Met 3/4 SIRS tachycardia, tachypnea and leukocytosis. Sepsis source likely bacteremia or pulmonary or psoas infectious process as seen on CT. He was influenza B positive on admission, completed TAMIFLU therapy. Blood culture grew MSSA, continued on ANTIBIOTICS, culture from 06/11 have been negative. Currently treating osteomyelitis of L3/L4 and possible epidural abscess/seen on MRI. Currently pending QuantiFERON for possible latent TB as a cause of psoas muscle pathology. He has been accepted to [facility] for neurological intervention for lumbar osteomyelitis, currently pending bed availability. Pending PICC line placement. Continue ANTIBIOTICS as below. ? Continue CEFAZOLIN 2gm Q8hrs ? Continue GUAIFENESIN 200 mg QID ? Pending repeat blood culture, urine culture, QuantiFERON, PPD Transaminitis (improved) Worsening transaminitis with increasing AST ALT and total bili. Possibly 2/2 CEFTRIAXONE. However patient reports mild abdominal pain, not noted on exam but he is also on pain meds. Abdominal ultrasound showed fatty liver with primary hepatocellular disease, mild ascites, edematous kidney suggestive of UTI, cholelithiasis, but no cholecystitis. Abdominal pain improved. LFTs are downtrending. ? Daily CMP Cystitis UTI Patient endorsed dysuria for the past 3 weeks. We previously started CEFEPIME, METRONIDAZOLE for suspected psoas abscess which would also cover UTI. Currently asymptomatic. Urine cultures were negative, covering with antibiotics ? Final urine culture has been negative. Hyponatremia (stable) Hypochloremia (resolved) Likely dehydrational. Admission sodium 129, currently 133 ? Daily CMP T2DM, insulin-dependent On INSULIN GLARGINE 15 units. A1C >14 this visit. Certainly needs glycemic control to aid with infection recovery. Blood sugars difficult to control. Home medication Insulin glargine 15U SC daily ? Continue glargine 15 units SH ? Continue LISPRO 3 units TID ? INSULIN sliding scale ? Accu-Cheks ? Diabetic education done METHAMPHETAMINE withdrawal Active METH use Tobacco dependence Patient reported daily meth use since 1996, last used 2 days ago. U tox was positive. Currently experiencing withdrawal symptoms with agitation, generalized pain, tachycardia and fever. Patient has approximately [id number] smoking history. Currently smokes 1 pack a day. U-Tox positive for METHAMPHETAMINE. ? Consulted on tobacco and METH cessation ? Continue LORAZEPAM 1 mg q.6h. PRN ? Continue NICOTINE patch 21 mg daily Hx of Dorsalgia -Lumbar MRI showed Osteomyelitis involving the L3 and L4 vertebral bodies, minimal posterior epidural enhancement at the L3, L4 and L5 levels suggestive of epidural abscess. ? Continue LIDOCAINE patches daily ? Continue home GABAPENTIN 300 mg daily Constipation Likely 2/2 OPIOID and being bedbound. ? Started MOVANTIK 25 mg daily ? Multiple bowel regimen ? Added LACTULOSE 60 mg x1 Health maintenance Diet:Carb consistent GI prophylaxis: PROTONIX DVT prophylaxis: LOVENOX Antibiotics: CEFAZOLIN CODE STATUS: Full code Disposition: Pending blood cultures, pending Transfer Patient case was discussed with attending, Dr. Anna Eastman MD and senior residents Dr. Bauer and Dr. Howell. Linnea Swann, DO PGYI Senior Resident Attestation: The patient is a 49-year-old male with uncontrolled diabetes mellitus, presented with generalized body pain and fever for 1 week and was found to have MSSA bacteremia likely secondary to sepsis secondary to left psoas infective myositis vs right elbow effusion. The patient reported that he continues to have lower back pain. His vitals were fairly stable saturating 94 to 95% on RA. White count mildly trended up to 19.3. Blood culture preliminary came back negative for 48H. MARK negative for any vegation, MRI right elbow significant for early effusion. Transfer to spinal surgery center is pending. We will continue with insulin glargine 12 units at bedtime, insulin lispro 5 units 3 times daily with meals, and SSI lispro moderate scale. COntinue with cefazoline 2g TID, and continue with pain meds as needed. The patient seems to be having methamphetamine withdrawal, and is on as needed lorazepam 1 mg every 6 hourly as needed. And we will continue with his other home medications. I discussed with and supervised the human resource intern physician involved in the care of this patient. I personally saw and examined the patient and discussed the assessment and plan with the entire medicine team, including my attending. I agree with the assessment and plan as documented above. Piotr Howell MD PGY2 Internal Medicine
[2024-06-13] MEDS: GLYCERIN, ADULT 1 EA SUPP 1 EACH PR (11:17)
--- NOTE | 2024-06-13 19:05 | PC.NURSE ---
17:55 Pt became very diaphoretic. patient stated he felt fine but was extremely hot. Blood sugar checked. It was 48. Pt had eaten all of his dinner tray and fruit that was brought in from family. I gave patient ambreen crackers, juice, and peanut butter. Checked blood sugar again at 18:05. Went up to 65. Pt continued to eat. Pt stopped sweating and said he was feeling better. Checked blood sugar one final time at 18:50. 101. Pt feeling much better.
[2024-06-13] MEDS: INSULIN GLARGINE (Lantus) 5 UNIT/0.05 ML (PER 5 UNITS) 12 UNIT SC (20:13)
[2024-06-14] VITALS (21 sets, daily range): BP systolic 99–127; BP diastolic 61–89; PULSE 81–112; RESP 14–21; TEMP 36.2–37.6; O2SAT 91–100; BMI 24.7
[2024-06-14] MEDS: LORazepam 0.5 MG TABLET 1 MG PO (00:37)
[2024-06-14] MEDS: oxyCODONE/APAP 5/325 TABLET 1 TAB PO ×2 (02:45→23:12)
[2024-06-14] MEDS: HYDROcodone/APAP 10/325 TAB PO ×4 (04:39→21:11)
[2024-06-14] MEDS: ceFAZolin/D5W 2 GM IV 2 GM/100 ML BAG IV ×3 (05:04→21:12)
[2024-06-14 06:14] LABS: Basophils % (Auto) 0 % (0-2.5); Eosinophils # (Auto) 0.2 Thou/mm3 (0.0-0.5); Eosinophils % (Auto) 1 % (0-10); Hematocrit 23.4 % (41.0-53.0); Immature Granulocytes % (Auto) 4 % (0-0); Immature Granulocytes Auto 0.62 Thou/mm3 (0.00-0.00); Lymphocytes # (Auto) 1.5 Thou/mm3 (1.0-4.8); Lymphocytes % (Auto) 10 % (10-50); Mean Corpuscular HGB Conc 34.2 g/dl (31.0-37.0); Mean Corpuscular Volume 85 fL (80-100); Monocytes # (Auto) 1.2 Thou/mm3 (0.0-0.8); Monocytes % (Auto) 8 % (0-12); Neutrophils # (Auto) 11.4 Thou/mm3 (1.8-7.7); Neutrophils % (Auto) 76 % (37-80); Nucleated Red Blood Cell % 0 /100 WBC (0); Platelet Count 802 Thou/mm3 (140-440); RDW Standard Deviation 43.7 fL (35.1-43.9); Red Blood Count 2.76 Miln/mm3 (4.50-5.90)
[2024-06-14 06:29] LABS: Alanine Aminotransferase 19 U/L (10-49); Albumin, Serum 3.3 gm/dL (3.5-5.0); Albumin/Globulin Ratio 0.8 (1.2-2.2); Alkaline Phosphatase 551 U/L (46-116); Anion Gap 8 (7-16); Aspartate Amino Transferase 25 U/L (0-34); BUN/Creatinine Ratio 11 Ratio (12-20); Bilirubin,Total 0.5 mg/dL (0.3-1.2); Blood Urea Nitrogen 9 mg/dL (9-23); Calcium 8.6 mg/dL (8.3-10.6); Calcium (Corrected) 9.2 mg/dL (8.5-10.1); Carbon Dioxide 29.4 mMol/L (20.0-31.0); Chloride 95 mMol/L (98-107); Creatinine (Component) 0.8 mg/dL (0.6-1.3); Estimated Creatinine Clearance 108.1 mL/min (>60); Glucose 262 mg/dL (74-106); Osmolality,Calculated 272 (275-295); Sodium 132 mMol/L (136-145); Total Protein 7.3 gm/dL (5.7-8.2); eGFR > 60 See Note
[2024-06-14] MEDS: INSULIN LISPRO (AdmeLOG) 1 UNIT/0.01 ML UNIT SC ×3 (07:49→21:20)
[2024-06-14] MEDS: GABAPENTIN 300 MG CAPSULE PO (08:00)
[2024-06-14] MEDS: LIDOCAINE 5% 1 PATCH TOP (08:00)
[2024-06-14] MEDS: PANTOPRAZOLE 40 MG TABLET PO (08:00)
[2024-06-14] MEDS: SENNA TABLET 1 TAB PO ×2 (08:00→21:12)
--- NOTE | 2024-06-14 09:09 | PC.CM ---
I spoke to Judi at [facility] and she states they do not have any beds at this time. I will follow up later to check on bed availability. Packet started along with CD.
[2024-06-14 12:23] LABS: Band Neutrophils (Manual) 6 % (0-6); Lymphocytes (Manual) 8 % (20-44); Metamyelocytes (Manual) 1 % (0-0); Monocytes (Manual) 9 % (2-9); Neutrophils (Manual) 76 % (50-70)
--- NOTE | 2024-06-14 12:53 | ESPR_ITS ---
Documentation for date of: 06/14/24 Subjective Subjective Interval history: No acute overnight events. No new complaints. Denies fever, chills, headaches, chest pain, sob, cough, GI or urinary symptoms. Exam Vital Signs Temp Pulse Resp BP Pulse Ox O2 Del Method O2 Flow Rate 97.1 F 87 19 99/61 98 Nasal Cannula 3 06/14/24 11:46 06/14/24 11:46 06/14/24 11:46 06/14/24 11:46 06/14/24 11:46 06/14/24 11:46 06/14/24 11:46 Narrative Exam GENERAL * Normal appearing, no apparent distress. HEENT * NCAT.?TETO. Oral mucosa is moist. Patent Nares NECK * Supple, nontender, no thyromegaly, no meningismus, no JVD, no step offs CHEST * RRR, no m/g/r * CTAB, no w/r/r. Symmetrical chest rise. No intercostal subcostal retraction * Atraumatic, nontender, no crepitus, symmetrical expansion. ABDOMEN * Soft, flat, nontender. No guarding/rebound tenderness/masses. * Bowel sounds presents * Right hip improving. EXTREMITIES * Nontender, no cyanosis, no edema * No edema/cyanosis.? * Small skin lesion of right elbow, tender to palpation, signs of dried discharge on skin, no active discharge. SKIN * Warm and dry, no jaundice/rashes. NEUROMUSCULAR * No lumbar or midline, no CVA, no paraspinal muscle spasm or tenderness. * Moves all 4 extremities well, with full ROM and good CSM. * HEATH x4, CN II-XII grossly intact. * No focal neurologic deficits. PSYCHIATRY * Normal mood and affect, cooperative, no SI or HI or hallucinations. Objective Labs 06/14/24 04:50 06/14/24 04:50 Labs: Laboratory Results - last 24 hr 06/14/24 04:50 WBC 15.0 H RBC 2.76 L Hgb 8.0 L Hct 23.4 L MCV 85 MCH 29.0 MCHC 34.2 RDW Std Deviation 43.7 Plt Count 802 H Neut % (Auto) 76 Lymph % (Auto) 10 Whitman % (Auto) 8 Eos % (Auto) 1 Baso % (Auto) 0 Neut # (Auto) 11.4 H Lymph # (Auto) 1.5 Whitman # (Auto) 1.2 H Eos # (Auto) 0.2 Baso # (Auto) 0.0 Immature Gran # (Auto) 0.62 H Absolute Nucleated RBC 0.00 Immature Gran % 4 H Neutrophils % (Manual) 76 H Monocytes % (Manual) 9 Metamyelocytes % 1 H Nucleated RBC % 0 Band Neutrophils 6 Lymphocytes (Manual) 8 L Sodium 132 L Potassium 4.0 Chloride 95 L Carbon Dioxide 29.4 Anion Gap 8 BUN 9 Creatinine 0.8 Estim Creat Clear Calc 108.1 eGFR > 60 BUN/Creatinine Ratio 11 L Glucose 262 H D Calculated Osmolality 272 L Calcium 8.6 Corrected Calcium 9.2 Total Bilirubin 0.5 AST 25 ALT 19 Alkaline Phosphatase 551 H D Total Protein 7.3 Albumin 3.3 L Globulin 4.0 H Albumin/Globulin Ratio 0.8 L Quality Measures Quality Measures none Assessment & Plan Assessment Current Active Medications: Generic Name Dose Route Start Last Admin Trade Name Freq PRN Reason Stop Dose Admin Acetaminophen 650 mg 06/04/24 19:42 06/10/24 18:00 Acetaminophen 325 Mg Tablet PO 07/04/24 19:41 650 mg Q6H PRN Administration Fever >101.5 Acetaminophen 650 mg 06/10/24 12:48 Acetaminophen 325 Mg Tablet PO 07/10/24 12:47 Q4HR PRN Pain Scale 1-3 (Mild) Hydrocodone Bitart/Acetaminophen 1 tab 06/10/24 12:50 06/14/24 11:32 Hydrocodone/Apap 10/325 Tab PO 06/18/24 12:49 1 tab Q4HR PRN Administration Pain Scale 7-10 (Severe) Dextrose 25 ml 06/04/24 19:49 Dextrose 50%-Water Inj 50 Ml Syringe IV 07/04/24 19:48 Q15MIN PRN BG 50-70 responsive npo pt Dextrose 50 ml 06/04/24 19:49 Dextrose 50%-Water Inj 50 Ml Syringe IV 07/04/24 19:48 Q15MIN PRN BG <50 OR BG <70 & pt unresponsive Gabapentin 300 mg 06/06/24 11:15 06/14/24 08:00 Gabapentin 300 Mg Capsule PO 07/06/24 11:14 300 mg QDAY WARD Administration Glucagon 1 mg 06/04/24 19:49 Glucagon Inj 1 Mg Vial IM Q15MIN PRN BG <70, and no IV access Glycerin 1 each 06/10/24 08:49 Glycerin, Adult 1 Ea Supp [place] 07/10/24 08:48 QDAY PRN CONSTIPATION Protocol Guaifenesin 200 mg 06/04/24 20:53 06/11/24 16:52 Guaifenesin Syrup 200 Mg/10 Ml Udc PO 07/04/24 20:52 200 mg QID PRN Administration COUGH OR CONGESTION Protocol Heparin Sodium (Porcine) 5,000 unit 06/11/24 09:00 06/13/24 21:51 Heparin Sod Inj 5000 Unit/Ml Vial SC 06/25/24 08:59 5,000 unit Q8HR WARD Administration Cefazolin Sodium 2 gm in 100 mls @ 100 mls/hr 06/11/24 10:38 06/14/24 05:04 Ancef 2gm Ivpb IV 06/18/24 10:37 100 mls/hr Q8HR WARD Administration Insulin Glargine 12 unit 06/13/24 21:00 06/13/24 20:13 Insulin Glargine (Lantus) 5 Unit/0.05 Ml (Per 5 Units) SC 07/13/24 20:59 12 unit HS WARD Administration Insulin Human Lispro 5 unit 06/09/24 08:00 06/14/24 11:29 Insulin Lispro (Admelog) 1 Unit/0.01 Ml Unit SC 07/09/24 07:59 Not Given TIDWM WARD Insulin Human Lispro 0 unit 06/11/24 21:00 06/14/24 11:33 Insulin Lispro (Admelog) 1 Unit/0.01 Ml Unit SC 07/11/24 20:59 Not Given ACHS [facility] Protocol Lidocaine 1 patch 06/09/24 09:00 06/14/24 08:00 Lidocaine 5% 1 Patch TOP 07/09/24 08:59 1 patch DAILY WARD Administration Nicotine 21 mg 06/05/24 09:00 06/14/24 08:01 Nicotine Patch 21 Mg/24 Hr Patch.Td24 TOP 07/05/24 08:59 Not Given QDAY WARD Oxycodone/Acetaminophen 1 tab 06/10/24 12:50 06/14/24 02:45 Oxycodone/Apap 5/325 Tablet PO 06/18/24 12:49 1 tab Q6H PRN Administration Pain Scale 4-6 (Moderate) Pantoprazole Sodium 40 mg 06/10/24 18:30 06/14/24 08:00 Pantoprazole 40 Mg Tablet PO 07/10/24 18:29 40 mg QDAY WARD Administration Polyethylene Glycol 17 gm 06/07/24 09:00 06/14/24 08:02 Polyethylene Glycol 17 Gm Packet PO 07/07/24 08:59 Not Given QDAY WARD Sennosides 1 tab 06/06/24 09:15 06/06/24 09:47 Senna/Docusate Sod 1 Tab Tablet PO 07/06/24 09:14 1 tab QDAY PRN Administration CONSTIPATION Protocol Sennosides 1 tab 06/12/24 09:00 06/14/24 08:00 Senna Tablet PO 07/12/24 08:59 1 tab BID WARD Administration Protocol Plan 49-year-old male IDDM, presents with generalized body pain and fever x 1 week Also endorsing bitemporal headache and dizziness upon standing, dysuria x 3 weeks. Initially admitted for sepsis in settings of influenza A and MSSA bacteremia. Lumbar MRI showed osteomyelitis of L3/L4 with possible abscess. Repeat 48-hour blood culture showing no growth. Currently pending insurance approval for neurological intervention transfer. 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 Early epidural abscess at L3/L4/L5 Influenza A MSSA bacteremia (resolved) Met 3/4 SIRS tachycardia, tachypnea and leukocytosis. Sepsis source likely bacteremia or pulmonary or psoas infectious process as seen on CT. He was influenza B positive on admission, completed TAMIFLU therapy. Blood culture grew MSSA, continued on ANTIBIOTICS, culture from 06/11 have been negative. Currently treating osteomyelitis of L3/L4 and possible epidural abscess/seen on MRI. Currently pending QuantiFERON for possible latent TB as a cause of psoas muscle pathology. He has been accepted to [facility] for neurological intervention for lumbar osteomyelitis, currently pending bed availability. 48-hour blood culture from 06/11 still negative. Pending PICC line placement. Continue ANTIBIOTICS as below. ? Continue CEFAZOLIN 2gm Q8hrs ? Continue GUAIFENESIN 200 mg QID ? Pending repeat blood culture, urine culture, QuantiFERON, PPD Transaminitis (improved) Worsening transaminitis with increasing AST ALT and total bili. Possibly 2/2 CEFTRIAXONE. However patient reports mild abdominal pain, not noted on exam but he is also on pain meds. Abdominal ultrasound showed fatty liver with primary hepatocellular disease, mild ascites, edematous kidney suggestive of UTI, cholelithiasis, but no cholecystitis. Abdominal pain improved. AST/ALT normalized. ALP downtrending. ? Daily CMP Cystitis UTI Patient endorsed dysuria for the past 3 weeks. We previously started CEFEPIME, METRONIDAZOLE for suspected psoas abscess which would also cover UTI. Currently asymptomatic. Urine cultures were negative, covering with antibiotics ? Final urine culture has been negative. Hyponatremia (stable) Hypochloremia (resolved) Likely dehydrational. Admission sodium 129, currently 133 ? Daily CMP T2DM, insulin-dependent On INSULIN GLARGINE 15 units. A1C >14 this visit. Certainly needs glycemic control to aid with infection recovery. Blood sugars difficult to control. Home medication Insulin glargine 15U SC daily ? Continue glargine 14 units SH ? Continue LISPRO 5 units TID ? INSULIN sliding scale ? Accu-Cheks ? Diabetic education done METHAMPHETAMINE withdrawal Active METH use Tobacco dependence Patient reported daily meth use since 1996, last used 2 days ago. U tox was positive. Currently experiencing withdrawal symptoms with agitation, generalized pain, tachycardia and fever. Patient has approximately [id number] smoking history. Currently smokes 1 pack a day. U-Tox positive for METHAMPHETAMINE. ? Consulted on tobacco and METH cessation ? Continue LORAZEPAM 1 mg q.6h. PRN ? Continue NICOTINE patch 21 mg daily Hx of Dorsalgia -Lumbar MRI showed Osteomyelitis involving the L3 and L4 vertebral bodies, minimal posterior epidural enhancement at the L3, L4 and L5 levels suggestive of epidural abscess. ? Continue LIDOCAINE patches daily ? Continue home GABAPENTIN 300 mg daily Constipation Likely 2/2 OPIOID and being bedbound. ? Started MOVANTIK 25 mg daily ? Multiple bowel regimen ? Added LACTULOSE 60 mg x1 Health maintenance Diet:Carb consistent GI prophylaxis: PROTONIX DVT prophylaxis: LOVENOX Antibiotics: CEFAZOLIN CODE STATUS: Full code Disposition: Pending blood cultures, pending Transfer Patient case was discussed with attending, Dr. Karen ARANDA, and senior residents Dr. Bauer and Dr. Howell. Linnea Swann, DO PGYI Senior Resident Attestation: The patient is a 49-year-old male with uncontrolled diabetes mellitus, presented with generalized body pain and fever for 1 week and was found to have MSSA bacteremia likely secondary to sepsis secondary to left psoas infective myositis vs right elbow effusion. The patient reported that he continues to have lower back pain. His vitals were fairly stable saturating 94 to 95% on RA. White count mildly trended up to 15.0. Blood culture preliminary came back negative for 48H. MARK negative for any vegation, MRI right elbow significant for early effusion. Transfer to spinal surgery center is pending. We will continue with insulin glargine 14 units at bedtime, insulin lispro 5 units 3 times daily with meals, and SSI lispro moderate scale. COntinue with cefazoline 2g TID, and continue with pain meds as needed. The patient seems to be having methamphetamine withdrawal, and is on as needed lorazepam 1 mg every 6 hourly as needed. And we will continue with his other home medications. I discussed with and supervised the international tax manager physician involved in the care of this patient. I personally saw and examined the patient and discussed the assessment and plan with the entire medicine team, including my attending. I agree with the assessment and plan as documented above. Piotr Howell MD PGY2 Internal Medicine Attending Provider Attestation/Addendum Patient is pending transfer to higher level of care. business resiliency manager said that the patient is waiting for bed availability. Patient is able to move both lower extremities. No new bowel or bladder symptoms. No other constitutional signs and symptoms. PICC line insertion requested earlier.
--- NOTE | 2024-06-14 14:19 | ESPR_ITS ---
Subjective Subjective Interval history: bc neg from 06/11, so ok for rocephin 2 gm iv daily thru 07/20 with weekly cbc, renal panel, esr while on iv rx and line removal at end of rx Exam Vital Signs Temp Pulse Resp BP Pulse Ox O2 Del Method O2 Flow Rate 97.1 F 87 19 99/61 98 Nasal Cannula 3 06/14/24 11:46 06/14/24 11:46 06/14/24 11:46 06/14/24 11:46 06/14/24 11:46 06/14/24 11:46 06/14/24 11:46 Narrative Exam limited eval today Objective - Internal Medicine Labs 06/14/24 04:50 06/14/24 04:50 Labs: Laboratory Results - last 24 hr 06/14/24 04:50 WBC 15.0 H RBC 2.76 L Hgb 8.0 L Hct 23.4 L MCV 85 MCH 29.0 MCHC 34.2 RDW Std Deviation 43.7 Plt Count 802 H Neut % (Auto) 76 Lymph % (Auto) 10 Harney % (Auto) 8 Eos % (Auto) 1 Baso % (Auto) 0 Neut # (Auto) 11.4 H Lymph # (Auto) 1.5 Harney # (Auto) 1.2 H Eos # (Auto) 0.2 Baso # (Auto) 0.0 Immature Gran # (Auto) 0.62 H Absolute Nucleated RBC 0.00 Immature Gran % 4 H Neutrophils % (Manual) 76 H Monocytes % (Manual) 9 Metamyelocytes % 1 H Nucleated RBC % 0 Band Neutrophils 6 Lymphocytes (Manual) 8 L Sodium 132 L Potassium 4.0 Chloride 95 L Carbon Dioxide 29.4 Anion Gap 8 BUN 9 Creatinine 0.8 Estim Creat Clear Calc 108.1 eGFR > 60 BUN/Creatinine Ratio 11 L Glucose 262 H D Calculated Osmolality 272 L Calcium 8.6 Corrected Calcium 9.2 Total Bilirubin 0.5 AST 25 ALT 19 Alkaline Phosphatase 551 H D Total Protein 7.3 Albumin 3.3 L Globulin 4.0 H Albumin/Globulin Ratio 0.8 L Assessment & Plan A&P Narrative bacteremia. mssa bc pos 06/05 and 06/07. neg at 48h from 06/11 hx of pos flu but do not see pos test in labs. dm II, a1c hx of psoas syndrome and L testicular orchitis with varicocele prior hiv and hep c neg in october 2023 appears to be bc pos source likely pulmonary with hx. concerns re elbow and back noted will check in again on Wednesday if remains in house with bc neg at >=48h, ok for rocephin 2 gm iv daily for 6-8 weeks from first 06/11 (so thru 07/20 or 08/03) with weekly cbc, renal panel, esr and line removal at end of rx if any question, go longer with rx thru 08/03 with weekly labs and line removal at end of rx Time Spent With Patient Time: Total time spent is greater than 50% in coordination of care (as documented) at patient's floor/unit and/or counseling patient:
--- NOTE | 2024-06-14 15:18 | PC.NURSE ---
pt off floor to finishing lab technician
[2024-06-14] MEDS: HEPARIN SOD LOCK SYR 100 UNIT/ML 500 UNIT STFIELD (15:47)
[2024-06-14] MEDS: LIDOCAINE INJ PF 1% 30 ML VIAL 4 ML INFL (15:47)
--- NOTE | 2024-06-14 16:53 | PC.NURSE ---
1627 patient is awake, alert, breathing unlabored, s/p attempted picc line to left upper arm and right upper arm-not successful. report given to Victor Manuel RUBI, patient transferred back to room 353 via gurney with tele box.
[2024-06-14] MEDS: INSULIN LISPRO (AdmeLOG) 1 UNIT/0.01 ML UNIT 5 UNIT SC (17:16)
--- NOTE | 2024-06-14 18:46 | PC.CM ---
Addendum entered by Qiana Benítez RN 06/14/24 18:49: Pt needs neurology surgery for L3 and L4 osteomyelitis and possible early abscess to L3, L4, L5. Pt is accepted at [facility], accepted by Emerson Pedraza. Transfer packet is complete with [address] john, Packet on TC desk. Please follow up with [facility] to see if they have an open bed. Original Note: [id number] I followed up with [facility] and they still no not have any beds open. Packet ready along with the CD. 1963 I spoke to Judi at [facility] and she states patient has been accepted but they do not have any beds at this time.
[2024-06-14] MEDS: INSULIN GLARGINE (Lantus) 5 UNIT/0.05 ML (PER 5 UNITS) 14 UNIT SC (21:19)
[2024-06-15] VITALS: BP 95/54; PULSE 105; RESP 16; TEMP 36.4; O2SAT 94
[2024-06-15] MEDS: HYDROcodone/APAP 10/325 TAB PO ×2 (02:25→09:32)
[2024-06-15 03:41] VITALS: PULSE 102
[2024-06-15 04:00] VITALS: BP 109/76; PULSE 108; RESP 16; TEMP 37.1; O2SAT 93
[2024-06-15] MEDS: oxyCODONE/APAP 5/325 TABLET 1 TAB PO ×2 (05:41→15:04)
[2024-06-15] MEDS: ceFAZolin/D5W 2 GM IV 2 GM/100 ML BAG IV ×2 (05:42→13:24)
[2024-06-15] MEDS: INSULIN LISPRO (AdmeLOG) 1 UNIT/0.01 ML UNIT SC (07:48)
[2024-06-15] MEDS: INSULIN LISPRO (AdmeLOG) 1 UNIT/0.01 ML UNIT 5 UNIT SC (07:48)
[2024-06-15 08:00] VITALS: BP 101/69; PULSE 91; PULSE 98; RESP 17; TEMP 36.5; O2SAT 97
[2024-06-15 09:12] LABS: Basophils # (Auto) 0.1 Thou/mm3 (0.0-0.2); Basophils % (Auto) 0 % (0-2.5); Eosinophils # (Auto) 0.3 Thou/mm3 (0.0-0.5); Eosinophils % (Auto) 2 % (0-10); Immature Granulocytes % (Auto) 4 % (0-0); Immature Granulocytes Auto 0.45 Thou/mm3 (0.00-0.00); Lymphocytes # (Auto) 1.5 Thou/mm3 (1.0-4.8); Lymphocytes % (Auto) 12 % (10-50); Mean Corpuscular Hemoglobin 29.1 pg (25.0-35.0); Mean Corpuscular Volume 86 fL (80-100); Monocytes % (Auto) 8 % (0-12); Neutrophils # (Auto) 9.3 Thou/mm3 (1.8-7.7); Neutrophils % (Auto) 74 % (37-80); Nucleated Red Blood Cell % 0 /100 WBC (0); Platelet Count 948 Thou/mm3 (140-440); RDW Standard Deviation 43.2 fL (35.1-43.9); Red Blood Count 2.92 Miln/mm3 (4.50-5.90); White Blood Count 12.7 Thou/mm3 (3.8-10.6)
[2024-06-15] MEDS: PANTOPRAZOLE 40 MG TABLET PO (09:32)
[2024-06-15] MEDS: SENNA TABLET 1 TAB PO (09:32)
[2024-06-15] MEDS: GABAPENTIN 300 MG CAPSULE PO (09:32)
[2024-06-15 09:33] LABS: Alanine Aminotransferase 14 U/L (10-49); Albumin, Serum 3.6 gm/dL (3.5-5.0); Albumin/Globulin Ratio 0.9 (1.2-2.2); Alkaline Phosphatase 473 U/L (46-116); Anion Gap 7 (7-16); Aspartate Amino Transferase 20 U/L (0-34); BUN/Creatinine Ratio 13 Ratio (12-20); Bilirubin,Total 0.5 mg/dL (0.3-1.2); Blood Urea Nitrogen 10 mg/dL (9-23); Calcium 8.9 mg/dL (8.3-10.6); Calcium (Corrected) 9.2 mg/dL (8.5-10.1); Carbon Dioxide 30.9 mMol/L (20.0-31.0); Chloride 94 mMol/L (98-107); Creatinine (Component) 0.8 mg/dL (0.6-1.3); Estimated Creatinine Clearance 108.1 mL/min (>60); Globulin 4.2 gm/dL (2.3-3.5); Glucose 180 mg/dL (74-106); Osmolality,Calculated 268 (275-295); Sodium 132 mMol/L (136-145); Total Protein 7.8 gm/dL (5.7-8.2); eGFR > 60 See Note
[2024-06-15] MEDS: LIDOCAINE 5% 1 PATCH TOP (09:33)
--- NOTE | 2024-06-15 11:23 | PC.CM ---
Addendum entered by Qiana Benítez RN 06/15/24 13:25: I called Dr. Bauer and reminded her to do the discharge summary. Addendum entered by Qiana Benítez RN 06/15/24 13:14: I set up warp picker time for 1530 with [place]. they will come sooner if they have a unit. Completed packet with CD left at nurses station. I called community health nurse staff and gave his the warp picker time. I spoke to patient's nurse and she is aware to call and give report to [facility]. Addendum entered by Qiana Benítez RN 06/15/24 12:08: Patient has been accepted by Dr. Mae at [facility]. He will be going to room H926A. Number to give report is [phone] and nurse is Marleny. Yanelis states Dr. Mae already spoke to Dr. Howell. I will update packet and set up transportation. Original Note: I spoke to Yanelis from [facility] and she states they may have a bed open up today. She asked for VS and I provided them. I provided the number to Dr. Piotr Howell [phone]. I spoke to Dr. Bauer and she was made aware.
[2024-06-15 11:53] LABS: Hemoglobin 8.5 g/dL (13.5-16.0)
[2024-06-15 12:00] VITALS: BP 118/76; PULSE 101; PULSE 108; RESP 17; TEMP 36.1; O2SAT 96
--- NOTE | 2024-06-15 13:44 | ESDS_ITS ---
Planned Discharge Date 06/15/24 DS: Providers Provider Date of admission: 06/04/24 19:42 Primary care physician: Christiano Curran MD Admitting Provider: Paresh Guzman MD Attending Provider on Admission: Juan Jones MD Consults: 06/04/24 19:41 Consult to Infectious Diseases Routine Comment: Consulting Provider: Lee Medel 06/04/24 22:14 Referral Infection Control Routine Comment: Reason for Infection Control Referral: Patient In Isolation Referral Smoking Cessation Counseling Routine Comment: Smoking Cessation Education Needed 06/05/24 10:41 Referral Registered Dietitian Routine Comment: 06/05/24 10:59 Consult to General Surgery Routine Comment: Consulting Provider: Bhavya Jett 06/08/24 10:43 Consult to Cardiology Routine Comment: Consulting Provider: Grady Ahmadi Instructions: for MARK 06/09/24 08:05 Referral Physical Therapy Routine Comment: Physician Instructions: 06/10/24 08:02 Referral - Apartment Maintenance Technician Stat Service Needed for Transfer: Neurosurgery Addl Comments:: Osteomyelitis L3 and L4 ?Early abscess L3,L4,L5 Persistent GPC bacteremia Attending Provider on DC: Juan Jones MD Discharging Provider: Juan Jones MD DS: Diagnosis Problem List Completed Was Problem List Reviewed/Reconciled?: Yes Hospital Course Hospital Course Hospital course: This is a 49-year-old male uncontrolled IDDM with A1c>14, presents with generalized body pain and fever x 1 week. Also endorsing bitemporal headache and dizziness upon standing, dysuria x 3 weeks. Initially admitted for sepsis in settings of MSSA bacteremia, influenza A pneumonia, and UTI. Patient started on ANTIBIOTICS and ANTIVIRAL therapy.. However repeat blood culture consistently showed GPC. We followed up with a spinal MRI given back complaint which showed osteomyelitis of lumbar spine with possibly early abscess. Patient continued on IV ANTIBIOTICS with infectious disease following. A transfer work order has been placed for neurological intervention. At the time of transfer, 48-hour blood cultures have been negative. Patient also underwent further workup for other causes of bacteremia including right elbow skin lesion with CT imaging showing small elbow effusion but no osteomyelitis or abscess. TTE and MARK were negative for vegetations. Abdominal ultrasound showed cholelithiasis but no cholecystitis, fatty liver with primary hepatocellular disease, mild ascites and edematous kidneys suggestive of UTI which treated with ANTIBIOTICS. Additionally, he presented with left hip pain with a positive psoas sign on exam. Pelvis MRI showed prominent infection process of psoas muscle of the left including the pelvis, with latent tuberculosis as a possible cause. QuantiFERON test was indeterminant. Other results are pending. Pertinent radiographical findings: * Thoracic spine MRI showed mild thoracic disc bulging, no significant im pingement upon thoracic cord. * Lumbar MRI showed osteomyelitis involving L3 and L4 vertebral bodies, minimal posterior epidural enhancement at L3, L4 and L5 levels, suggestive of early epidural abscess. Patient currently on the following medications: ? CEFAZOLIN 2gm Q8hrs ? GUAIFENESIN 200 mg QID ? OXYCODONE 5/325 1 tab q.6h. PRN ? HYDROCODONE 10/325 1 tab q.4h. PRN ? ACETAMINOPHEN 650 mg q.4h. PRN ? LIDOCAINE patches daily ? glargine 14 units SH ? LISPRO 5 units TID ? LORAZEPAM 1 mg q.6h. PRN ? NICOTINE patch 21 mg daily ? GABAPENTIN 300 mg daily ? 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 Early epidural abscess at L3/L4/L5 Influenza A MSSA bacteremia (resolved) Transaminitis (improved) Cystitis UTI Hyponatremia (stable) Hypochloremia (resolved) T2DM, insulin-dependent METHAMPHETAMINE withdrawal Active METH use Tobacco dependence Hx of Dorsalgia Constipation Patient case was discussed with attending, Juan Jones MD and senior residents Dr. Bauer and Dr. Howell. Linnea Swann, PGYI Senior Resident Attestation: I discussed with and supervised the internal audit director physician involved in the care of this patient. I personally saw and examined the patient and discussed the assessment and plan with the entire medicine team, including my attending. I agree with the transfer plan as documented above. Piotr Howell MD PGY2 Internal Medicine Time Spent with Patient Time attestation: Total time spent providing and/or coordinating discharge services: >35 min Exam Vital Signs Temp Pulse Resp BP Pulse Ox O2 Del Method O2 Flow Rate 97.0 F 101 H 17 118/76 96 Nasal Cannula 3 06/15/24 12:00 06/15/24 12:00 06/15/24 12:00 06/15/24 12:00 06/15/24 12:00 06/15/24 12:00 06/15/24 12:00 Narrative Exam GENERAL * Normal appearing, no apparent distress. HEENT * NCAT.?TETO. Oral mucosa is moist. Patent Nares NECK * Supple, nontender, no thyromegaly, no meningismus, no JVD, no step offs CHEST * RRR, no m/g/r * CTAB, no w/r/r. Symmetrical chest rise. No intercostal subcostal retraction * Atraumatic, nontender, no crepitus, symmetrical expansion. ABDOMEN * Soft, flat, nontender. No guarding/rebound tenderness/masses. * Bowel sounds presents * Right hip improving. EXTREMITIES * Nontender, no cyanosis, no edema * No edema/cyanosis.? * Small skin lesion of right elbow, tender to palpation, signs of dried discharge on skin, no active discharge. SKIN * Warm and dry, no jaundice/rashes. NEUROMUSCULAR * No lumbar or midline, no CVA, no paraspinal muscle spasm or tenderness. * Moves all 4 extremities well, with full ROM and good CSM. * HEATH x4, CN II-XII grossly intact. * No focal neurologic deficits. PSYCHIATRY * Normal mood and affect, cooperative, no SI or HI or hallucinations. Discharge Plan Plan Patient Disposition: Xfer Other Facility Pt Being Transferred to: [facility] Plan Goals: Patient currently on the following medications: ? CEFAZOLIN 2gm Q8hrs ? GUAIFENESIN 200 mg QID ? OXYCODONE 5/325 1 tab q.6h. PRN ? HYDROCODONE 10/325 1 tab q.4h. PRN ? ACETAMINOPHEN 650 mg q.4h. PRN ? LIDOCAINE patches daily ? glargine 14 units SH ? LISPRO 5 units TID ? LORAZEPAM 1 mg q.6h. PRN ? NICOTINE patch 21 mg daily ? GABAPENTIN 300 mg daily ? MOVANTIK 25 mg daily Prescriptions/Referrals Prescriptions/Med Rec: No Action No Known Home Medications Referrals: Christiano Curran MD [Primary Care Provider] - Patient/Caregiver Discharge Instructions Discharge Activity: as per physical therapy Education Materials: ED Diabetes with High Blood Sugar, ED Drug Abuse Print Language: Kinyarwanda Stand Alone Forms: Ashley Award Info., Patient Portal Info Letter Quality Discharge Quality Measures VTE prophylaxis MD Attestestation MD Attestation I discussed with and supervised the resident physician who took care of this patient. I agree with the assessment and discharge plan as above.
--- NOTE | 2024-06-15 14:59 | PC.NURSE ---
Report given to Marleny RUBI at [facility]
== END 2024-06-15 15:55 | disposition short-term general hospital (02) | DRG 720 ==
LOC: SERX 19:33 → SERHOLD 20:05 → S3NX 21:48
PROVIDERS: Internal Medicine Cardiovascular Disease; Internal Medicine Infectious Disease; Nurse Practitioner Family; Registered Nurse General Practice; Student in an Organized Health Care Education/Training Program; Admitting Provider Internal Medicine; Emergency Provider Emergency Medicine; PCP Family Medicine; Visit Provider Internal Medicine
PROC: (CPT 93312; principal; 2024-06-09 11:30)
DX: A41.01 Sepsis due to Methicillin susceptible Staphylococcus aureus (principal); K68.12 Psoas muscle abscess; N30.90 Cystitis, unspecified without hematuria; E87.1 Hypo-osmolality and hyponatremia; J10.01 Influenza due to other identified influenza virus with the same other identified influenza virus pneumonia; M46.26 Osteomyelitis of vertebra, lumbar region; M60.08 Infective myositis, other site; G06.1 Intraspinal abscess and granuloma; E11.69 Type 2 diabetes mellitus with other specified complication; E87.8 Other disorders of electrolyte and fluid balance, not elsewhere classified; E87.20 Acidosis, unspecified; G89.29 Other chronic pain; E11.65 Type 2 diabetes mellitus with hyperglycemia; F15.13 Other stimulant abuse with withdrawal; K59.03 Drug induced constipation; T40.2X5A Adverse effect of other opioids, initial encounter; Y92.230 Patient room in hospital as the place of occurrence of the external cause; K76.0 Fatty (change of) liver, not elsewhere classified; M25.421 Effusion, right elbow; K80.20 Calculus of gallbladder without cholecystitis without obstruction; R18.8 Other ascites; F17.210 Nicotine dependence, cigarettes, uncomplicated; Z91.148 Patient's other noncompliance with medication regimen for other reason; Z91.199 Patient's noncompliance with other medical treatment and regimen due to unspecified reason; Z22.7 Latent tuberculosis; Z56.0 Unemployment, unspecified; Z79.4 Long term (current) use of insulin; Z79.899 Other long term (current) drug therapy
CPT/HCPCS: 36415; 71046; 72146; 72158; 72197; 73221; 74176; 76700; 80048; 80053; 80202; 80307; 81001; 82010; 82270; 82436; 83036; 83605; 83615; 83690; 83735; 83880; 83986; 84100; 84133; 84145; 84300; 84484; 85014; 85018; 85025; 85610; 85652; 85730; 86140; 86480; 86580; 86703; 87040; 87077; 87081; 87086; 87186; 87400; 87811; 93005; 93225; 93306; 93312; 96361; 96365; 96367; 97161; 99152; 99285; A9579; J0689; J0696; J1642; J1643; J1650; J1815; J1885; J2250; J2543; J3010; J3370; J3372; J3475; J3480; J3490; J7030; J7040; J7050; Z7610; A9270; J1836

== ENCOUNTER 2024-07-06 05:24 | Emergency (ER) | payer MEDICAID, SELFPAY ==
[2024-07-06 05:37] VITALS: BP 136/79; PULSE 88; RESP 17; TEMP 36.5; O2SAT 98
--- NOTE | 2024-07-06 05:38 | PD.EDRME ---
Rapid Medical Screening Exam [facility] Arrival date/time: 07/06/24 05:24 49M with history of DM presents to ED with 1 day of worsening R groin. Patient was recently admitted and then transferred to [place] for R psoas muscle infection. Patient has been taking his ABX and pain meds, but today it got worse. Patient did walk on the treadmill today, but did not do more exercise than usual. Patient still has his PICC line. Chief Complaint: General Adult/Misc Complain
[2024-07-06] MEDS: HYDROcodone/APAP 5/325 TABLET 1 TAB PO (05:56)
--- NOTE | 2024-07-06 06:10 | PC.LAC ---
Initial contact with pt. Pt c/o severe lower left back/buttock pain radiating to lt groin area. Pt stated that he was recently discharged from [facility]. Pt stated that they drain abscess fluid from his lower back. Pt/merlene have been administering IV Abx at home via picc line to lt upper arm, enriqueg inplace.
[2024-07-06 06:12] VITALS: BP 126/81; PULSE 82; RESP 20; TEMP 36.6; O2SAT 98
--- NOTE | 2024-07-06 06:43 | PC.NURSE ---
Pt ambulated to BR with assist, gait unsteady.
[2024-07-06 06:55] LABS: Alanine Aminotransferase < 7 U/L (10-49); Albumin, Serum 3.5 gm/dL (3.5-5.0); Alkaline Phosphatase 132 U/L (46-116); Anion Gap 6 (7-16); Aspartate Amino Transferase 12 U/L (0-34); BUN/Creatinine Ratio 29 Ratio (12-20); Bilirubin,Total 0.3 mg/dL (0.3-1.2); Blood Urea Nitrogen 23 mg/dL (9-23); C-Reactive Protein 2.1 mg/dL (0.0-0.9); Calcium 8.9 mg/dL (8.3-10.6); Calcium (Corrected) 9.3 mg/dL (8.5-10.1); Carbon Dioxide 24.9 mMol/L (20.0-31.0); Chloride 106 mMol/L (98-107); Creatinine (Component) 0.8 mg/dL (0.6-1.3); Globulin 3.6 gm/dL (2.3-3.5); Glucose 272 mg/dL (74-106); Osmolality,Calculated 287 (275-295); Potassium 4.4 mMol/L (3.4-5.1); Sodium 137 mMol/L (136-145); Total Protein 7.1 gm/dL (5.7-8.2); eGFR > 60 See Note
[2024-07-06 07:01] LABS: Basophils % (Auto) 0 % (0-2.5); Eosinophils % (Auto) 0 % (0-10); Hematocrit 27.5 % (41.0-53.0); Immature Granulocytes % (Auto) 1 % (0-0); Lymphocytes # (Auto) 1.1 Thou/mm3 (1.0-4.8); Lymphocytes % (Auto) 6 % (10-50); Mean Corpuscular HGB Conc 32.7 g/dl (31.0-37.0); Mean Corpuscular Hemoglobin 27.6 pg (25.0-35.0); Mean Corpuscular Volume 84 fL (80-100); Monocytes # (Auto) 0.7 Thou/mm3 (0.0-0.8); Monocytes % (Auto) 4 % (0-12); Neutrophils # (Auto) 14.8 Thou/mm3 (1.8-7.7); Neutrophils % (Auto) 89 % (37-80); Nucleated Red Blood Cell % 0 /100 WBC (0); Platelet Count 684 Thou/mm3 (140-440); RDW Standard Deviation 43.9 fL (35.1-43.9); Red Blood Count 3.26 Miln/mm3 (4.50-5.90); White Blood Count 16.7 Thou/mm3 (3.8-10.6)
--- NOTE | 2024-07-06 07:03 | PC.NURSE ---
Pt. here from home to room 8, pt.'s mother at bedside, pt. states he is here for left lower back pain that radiates to his left groin, pt. states he was just discharged from [facility] on 06/27/24 for an abscess in epidural space of lumbar spine. Pt. has a PICC line to his left upper arm with a dressing intact. Pt. states his Mother and Nephew are giving him home antibiotics through his PICC line. Pt. states he has been taking his pain medication but last night at 2100, the pain got worse and he has been unable to get comfortable.
[2024-07-06 07:08] LABS: Sed Rate (ESR) 73 mm/hr (0-15)
--- NOTE | 2024-07-06 07:10 | PD.EDBACK ---
ED Back Injury Pain RME/HPI General Chief Complaint: General Adult/Misc Complain Stated Complaint: LEFT GROIN AREA PAIN Time Seen by Provider: 07/06/24 05:46 Arrival date/time: 07/06/24 05:24 RME / HPI RME / HPI Narrative: 07/06/24 05:24 49M with history of DM presents to ED with 1 day of worsening R groin. Patient was recently admitted and then transferred to [place] for R psoas muscle infection. Patient has been taking his ABX and pain meds, but today it got worse. Patient did walk on the treadmill today, but did not do more exercise than usual. Patient still has his PICC line. DR. APODACA MAIN ED EVALUATION 49 year old male with history of diabetes and recently admitted 06/15/2024 through 06/27/2024 at [facility] for MSSA bacteremia with L3-L4 osteomyelitis with epidural asbcess at L3-L4 on MRI lumbar spine, discharged home with a PICC line and receiving Ancef presents to the ED for left groin and lower back pain. Reportedly has had pain for several weeks now. However, feels is worsening since being discharged from [facility] 9 days ago. Described as aching in sensation, rating 10/10 in severity. States he has taken pain medication at home with very little improvement. Denies any recent injuries. Denies fevers, chills, falls/injury/trauma. Related Data Home Medications ?Medication ?Instructions ?Recorded ?Confirmed No Known Home Medications 06/12/24 06/12/24 Allergies Allergy/AdvReac Type Severity Reaction Status Date / Time No Known Allergies Allergy Verified 07/06/24 05:29 Review of Systems Review of Systems Narrative Review of Systems: GEN: No fever, no chills, no weight loss EYES: No discharge, no visual changes, no pain HEENT: No ear pain, no congestion, no sore throat PULM: No shortness of breath, no cough, no congestion CV: No chest pain, no dyspnea on exertion, no palpitations GI: No nausea, no vomiting, no diarrhea, no pain, no constipation : No frequency, no urgency, no dysuria MUSC/SKEL: No joint pain, + left groin and back pain SKIN: No rash NEURO: No weakness, no headache Past Medical History Past Medical History NEUROLOGIC: Negative Seizures CARDIAC: Negative Cardiac Disorders or Congestive Heart Failure RESPIRATORY: Negative Chronic Obstructive Pulmonary Disease (COPD) or Asthma GENITOURINARY: Negative Renal Disease ENDOCRINE: Positive Diabetes Mellitus Type 2; Negative Diabetes Mellitus Type 1 HEMATOLOGIC: Negative Sickle Cell Disease OTHER HISTORY: Negative Blood Transfusions, Blood Transfusion Reaction or Anesthesia Reactions Social History SMOKING STATUS: Current every day smoker ED Exam Narrative Physical exam: GENERAL APPEARANCE: alert and oriented x 4, well-developed, well-nourished, appears uncomfortable HEENT: Normocephalic, atraumatic; pupils equal, round, reactive to light; EOMI; mucous membranes pink, moist; oropharynx clear NECK: Supple LUNGS: CTABL; no wheezes, no rales, no rhonchi HEART: Regular rate, regular rhythm; normal S1, S2; no murmurs ABDOMEN: non distended; normal BS; soft, no tenderness, no guarding, no rebound; no masses, no organomegaly, no hernia BACK: no CVA tenderness EXTREMITIES: atraumatic; no edema NEUROLOGIC: awake; alert and oriented x4; cranial nerves II-XII grossly intact; no focal sensory or motor deficits PSYCHIATRIC: appropriate mood and affect SKIN: warm, dry, normal color; no rashes Course Quality Measures none Orders Category Date Time Status CT Screening NOW Care 07/06/24 07:[address] abdomen pelvis w con Stat Exams 07/06/24 07:10 Completed CBC Stat Lab 07/06/24 06:50 Completed CMP [Comprehensive Metabolic Panel] Stat Lab 07/06/24 06:18 Completed CRP [C-Reactive Protein] Stat Lab 07/06/24 06:18 Completed ESR [Sed Rate (ESR)] Stat Lab 07/06/24 06:50 Completed HYDROcodone*/APAP 5/325 [[place] 5/325] Med 07/06/24 05:37 Discontinued 1 tab PO X1 ONE Morphine Inj Med 07/06/24 07:05 Discontinued 5 mg IVP X1 ONE Ondansetron Inj [Zofran Inj] Med 07/06/24 07:05 Discontinued 4 mg IV X1 ONE ceFAZolin/D5W 2 GM IV [Ancef 2gm Ivpb] Med 07/06/24 11:08 Discontinued 2 gm in 100 ml IV X1 Vital Signs Vital signs: Vital Signs Temperature 97.7 F 07/06/24 05:37 Pulse Rate 88 07/06/24 05:37 Respiratory Rate 17 07/06/24 05:37 Blood Pressure 136/79 H 07/06/24 05:37 Pulse Oximetry (%) 98 07/06/24 05:37 Oxygen Delivery Method Room Air 07/06/24 05:37 Pulse ox is 98% on room air which is adequate. Back Pain / Injury MDM Narrative MDM Narrative:: Miroslava Chavez, ned scribing for and in the presence of Dr. Apodaca. Patient data External records reviewed:: [facility] previous records (I reviewed admission from 06/04/2024 through 06/14/2024 ) and Other (specify) (I reviewed summary of care from admission 06/15/2024 through 06/27/2024 at [facility] ) Clinical information provided by:: patient Social determinants that could affect healthcare access:: substance use Patient has the following chronic illnesses:: diabetes and recently admitted 06/15/2024 through 06/27/2024 at [facility] for MSSA bacteremia with L3-L4 osteomyelitis with epidural asbcess at L3-L4 on MRI lumbar spine, discharged home with a PICC line and receiving Ancef How is presenting disease/condition affected by chronic disease/condition?: exacerbated by Evaluation data The following diagnostics were reviewed and interpreted by me:: lab results and radiology exam(s) Lab and/or radiology exams considered but not ordered:: None Interpretation Summary: Ordering Physician: Ro Apodaca MD Date of Service: 07/06/24 Procedure(s): CT abdomen pelvis w con Accession Number(s): [id number] cc: Petar De La Cruz MD; Jarad Angeles MD; Ro Apodaca MD~ Examination: CT abdomen with intravenous contrast CT pelvis with intravenous contrast 2-D coronal reconstructions 2-D sagittal reconstructions Date and time of exam:July 06, 2024 0855 hours INDICATIONS: Left groin pain left lower flank pain today, history has mild cystitis, diffusely abnormal left psoas muscle on CT study June 04, 2024. CTDI: vol (mGy) 6.52 DLP: (mGycm) 133 Technique: Multiple axial sections of the abdomen and pelvis have been obtained. 64 slice high-resolution scanner used. 3 mm axial sections have been obtained, post intravenous injection 60 cc [id number] 2-D sagittal, coronal reconstructions obtained. Low dose protocols were performed. One or more of the following dose reduction techniques were used; automated exposure control, adjustment of the mA and/or KV according to patient size, use of iterative reconstruction technique. Findings: No focal liver or splenic lesions No gallstones No pancreatic or adrenal mass No renal or ureteral calculi, no hydronephrosis Aorta normal size No bowel obstruction Normal appendix Again noted asymmetric mildly enlarged left psoas muscle but without the air densities No interval soft tissue abscess Urinary bladder wall shows significant thickening up to 8 mm IMPRESSION: Again noted asymmetric mildly enlarged left psoas muscle but without the air densities Urinary bladder wall thickening again noted Dictated By: Jarad Angeles MD Signed By: <Electronically signed by Jarad Angeles MD in OV> 07/06/24 1018 Medications / Prescriptions Medications or Prescriptions considered but not ordered:: None Medication administrations:: Medication Administration History Discontinued Medications Hydrocodone Bitart/Acetaminophen (Hydrocodone/Apap 5/325 Tablet) 1 tab PO X1 ONE Stop: 07/06/24 05:38 Last Admin: 07/06/24 05:56 Dose: 1 tab Documented By: CVL Cefazolin Sodium (Ancef 2gm Ivpb) 2 gm in 100 mls @ 200 mls/hr IV X1 ONE Stop: 07/06/24 11:37 Last Infusion: 07/06/24 12:10 Dose: Infused Documented By: Admin: 07/06/24 11:38 Dose: 200 mls/hr Documented By: RD Morphine Sulfate (Morphine Sulf Inj 10 Mg/Ml Vial) 5 mg IVP X1 ONE Stop: 07/06/24 07:06 Last Admin: 07/06/24 07:31 Dose: 5 mg Documented By: ED Ondansetron HCl (Ondansetron Inj 2 Mg/Ml Inj 2 Ml) 4 mg IV X1 ONE Stop: 07/06/24 07:06 Last Admin: 07/06/24 07:31 Dose: 4 mg Documented By: ED See above Consultations Consultation(s) initiated? (list below): Yes Consultation #1 (Physician, Specialty, Details): Discussed with hospitalist Dr. Maynard for consult. Recommends continue current outpatient treatment with precautions to return if patient develops signs or symptoms of infection. Agree with plan. Will dc home for continued outpatient management. Time: 12:30 Diagnosis Differential diagnosis back pain/injury: lumbar radiculopathy, sciatica, strain of lumbar region, renal colic and discitis Most likely diagnosis given after review of the tests above:: Left groin pain Muscle inflammation Admission Indicated Admission indicated?: not indicated Admission Request Was there a request for admission?: No Disposition Plan Disposition Plan: Discharge Discharge Attestation Discharge Attestation: The patient and all family members were given an opportunity to ask questions and understood the discharge instructions. Discharge instructions specifically effects, indications for sooner follow up or return to the emergency department, and the expected course of current diagnosis. Patient condition: Stable Discharge Plan Plan Patient Disposition: HOME (Self Care) Prescriptions/Referrals Prescriptions/Med Rec: No Action No Known Home Medications Referrals: Petar De La Cruz MD [Primary Care Provider] - In 1 week Problem List Clinical Impression: Left groin pain, Muscle inflammation Patient/Caregiver Discharge Instructions Education Materials: ED Myositis Additional Instructions: Continue current outpatient treatment. If symptoms worsen, do not improve, or other concerns, return to the ED. Return to the ED if there are signs or symptoms of infection such as fevers, chills, sweats. Print Language: Uzbek Stand Alone Forms: Ashley Award Info., Patient Portal Info Letter
[2024-07-06 07:23] VITALS: BP 118/81; PULSE 77; RESP 18; TEMP 36.6; O2SAT 99
[2024-07-06] MEDS: ONDANSETRON INJ 2 MG/ML INJ 2 ML 4 MG IV (07:31)
[2024-07-06] MEDS: MORPHINE SULF INJ 10 MG/ML VIAL 5 MG IVP (07:31)
--- NOTE | 2024-07-06 08:40 | PC.NURSE ---
Pt. resting with his eyes closed. Mother at bedside.
[2024-07-06 10:25] VITALS: BP 129/85; PULSE 87; RESP 17; TEMP 36.6; O2SAT 98
[2024-07-06] MEDS: ceFAZolin/D5W 2 GM IV 2 GM/100 ML BAG IV (11:38)
[2024-07-06 13:27] VITALS: BP 117/78; PULSE 88; RESP 19; TEMP 36.5; O2SAT 98
[2024-07-06 14:09] VITALS: BP 114/73; PULSE 77; RESP 18; TEMP 36.8; O2SAT 99
== END 2024-07-06 14:15 | disposition home or self-care (01) ==
PROVIDERS: Physician Assistant; Emergency Provider Emergency Medicine; PCP Internal Medicine
DX: M60.88 Other myositis, other site (principal); E11.9 Type 2 diabetes mellitus without complications; F17.210 Nicotine dependence, cigarettes, uncomplicated; Z95.9 Presence of cardiac and vascular implant and graft, unspecified
CPT/HCPCS: 36415; 74177; 80053; 85025; 85652; 86140; 96365; 96375; 99285; A4649; J0689; J2270; J2405; Q9967; A9270